=== PATIENT | female | born 1955 | race Caucasian/White ===

== ENCOUNTER 2016-08-11 17:39 | Emergency (ER) | payer MEDICARE ==
[~2016-08-11] VITALS: Ht 162.6 cm; Wt 68.0 kg
[2016-08-11] MEDS ORDERED: FAMOTIDINE 20 MG/2 ML VIAL IVP ONE (18:30)
[2016-08-11] MEDS ORDERED: methylPREDNISolone SOD SUCC PF 125 MG/2 ML VIAL. IV ONE (18:30)
[2016-08-11] MEDS ORDERED: diphenhydrAMINE 50 MG/ML VIAL IVP ONE (18:30)
[2016-08-11] MEDS ORDERED: ONDANSETRON PF 4 MG/2 ML VIAL. IV ONE (18:30)
[2016-08-11 19:17] VITALS: BP 98/55
--- NOTE | 2016-08-11 22:41 | ED.ADGEN ---
Past Medical History Past Medical History: Fibromyalgia Additional Past Medical Histor: NEUROPATHY Past Surgical History: Hysterectomy Additional Past Surgical Histo: TUMOR FROM L SHOULDER, L HAND Alcohol Use: None Drug Use: None Adult General Chief Complaint Chief Complaint: NAUSEA/VOMITING/DIARRHA HPI HPI Patient is a 61 year old female who presents with multiple medical complaints. Patient reports fevers for one week, nausea and urinary and fecal incontinence. Patient was evaluated by her PCP yesterday and prescribed antibiotics for UTI. Blood work was drawn and the patient is to schedule follow-up appointment next week. Patient states she has been unable to take her antibiotics due to persistent nausea. She denies vomiting. She denies fever, chills and sweats today. No flank pain or abdominal pain. Of note, patient also reports developing hives yesterday after receiving a tetanus booster. Patient's accompanied at bedside by her daughter. Review of Systems Review of Systems Review of symptoms as per history of present illness. Current Medications Current Medications Current Medications Medications (Trade) Dose Ordered Sig/Dena Start Time Stop Time Status Last Admin Dose Admin Ceftriaxone Sodium 1 gm/ Sodium Chloride 50 ml @ 100 mls/hr Q24H 08/12/16 19:00 08/12/16 19:00 DC Ceftriaxone Sodium 50 ml @ 100 mls/hr 1X ONCE 08/11/16 19:00 08/11/16 19:29 DC 08/11/16 18:38 100 MLS/HR Diphenhydramine HCl (Benadryl) 25 mg 1X ONCE 08/11/16 18:30 08/11/16 18:32 DC 08/11/16 18:37 25 MG Famotidine (Pepcid) 20 mg 1X ONCE 08/11/16 18:30 08/11/16 18:32 DC 08/11/16 18:37 20 MG Methylprednisolone Sodium Succinate (SOLU-Medrol 125MG VIAL) 125 mg 1X ONCE 08/11/16 18:30 08/11/16 18:32 DC 08/11/16 18:38 125 MG Ondansetron HCl (Zofran) 4 mg 1X ONCE 08/11/16 18:30 08/11/16 18:32 DC 08/11/16 18:37 4 MG Allergies Allergies Allergies Coded Allergies Type Severity Reaction Last Updated Verified iodine Allergy Unknown 08/11/16 Yes meperidine Allergy Unknown 08/11/16 Yes Physical Exam Physical Exam Constitutional: Well developed, well nourished, no acute distress, non-toxic appearance. [] HENT: Normocephalic, atraumatic, bilateral external ears normal, oropharynx moist, no oral exudates, nose normal. [] Eyes: PERRLA, EOMI, conjunctiva normal, no discharge. [] Neck: Normal range of motion, no tenderness, supple, no stridor. [] Cardiovascular:Heart rate regular rhythm, no murmur [] Lungs & Thorax: Bilateral breath sounds clear to auscultation [] Abdomen: Bowel sounds normal, soft, no tenderness, no masses, no pulsatile masses. [] Skin: Sporadic hives on extremities. Back: No tenderness, no CVA tenderness. [] Extremities: No tenderness, no cyanosis, no clubbing, ROM intact, no edema. [] Neurologic: Alert and oriented X 3, normal motor function, normal sensory function, no focal deficits noted. [] Psychologic: Affect normal, judgement normal, mood normal. [] Current Patient Data Vital Signs Vital Signs Date Time Temp Pulse Resp B/P (MAP) Pulse Ox O2 Delivery O2 Flow Rate FiO2 08/11/16 19:17 84 16 98/55 (69) 93 Room Air 08/11/16 17:45 97.7 97.7 EKG EKG [] Radiology/Procedures Radiology/Procedures [] Impressions: Patient afebrile with normal vital signs. She has been prescribed Keflex at home but is been unable to take for nausea. IV Zofran and and Rocephin given. Patient also given Pepcid and Benadryl and Solu-Medrol for treatment of hives with near complete resolution in the emergency department. Discharge home with nausea medication and encouraged to crease fluids and start antibiotics tomorrow. Will continue to treat hives. PCP follow-up as scheduled. Return precautions reviewed. Course & Med Decision Making Course & Med Decision Making Pertinent Labs and Imaging studies reviewed. (See chart for details) [] Dragon Disclaimer Dragon Disclaimer This electronic medical record was generated, in whole or in part, using a voice recognition dictation system. MARQUIS GENTILE DO August 11, 2016 22:41
== END 2016-08-11 19:40 | disposition home or self-care (01) ==
LOC: ER 17:39
DX: L50.9 Urticaria, unspecified (principal); R11.0 Nausea; R15.9 Full incontinence of feces; M79.7 Fibromyalgia; G62.9 Polyneuropathy, unspecified; Z88.8 Allergy status to other drugs, medicaments and biological substances
CPT/HCPCS: 96365; 96375; 99284; J0690; J1200; J2405; J2930; S0028

== ENCOUNTER 2018-12-01 18:43 | Inpatient (IN) | payer MEDICARE ==
[~2018-12-01] VITALS: Ht 165.1 cm; Wt 71.7 kg
[~2018-12-01 18:43] MED LIST: AMIT100T PO; ASPI-630 PO; CIPR500T94 PO; FENT1PAT13 TD; GABA800T5 PO; HYDR-2769 PO; NALO4SPR NS; OXYC5CAP PO; PANT40TA77 PO; POLY17PO28 PO
[2018-12-01] MEDS ORDERED: IPRATRPIUM/ALBUTEROL 0.5/2.5MG 3 ML NEBU. NEB ONE (19:00)
[2018-12-01] MEDS ORDERED: methylPREDNISolone SOD SUCC PF 125 MG/2 ML VIAL. IV ONE (19:00)
[2018-12-01 19:05] LABS: BASO # 0.1 x10^3/uL (0.0-0.2); BASO % 1 % (0-3); EOS # 0.3 x10^3/uL (0.0-0.7); EOS % 3 % (0-3); HEMATOCRIT 34.5 % (36.0-47.0); HEMOGLOBIN 11.6 g/dL (12.0-15.5); LYMPH # 1.2 x10^3/uL (1.0-4.8); LYMPH % 10 % (24-48); MEAN CORPUSCULAR HEMOGLOBIN 32 pg (25-35); MEAN CORPUSCULAR HGB CONC 34 g/dL (31-37); MEAN CORPUSCULAR VOLUME 94 fL (79-100); MONO # 0.9 x10^3/uL (0.0-1.1); MONO % 8 % (0-9); NEUT # 9.2 x10^3/uL (1.8-7.7); NEUT % 79 % (31-73); PLATELET COUNT 262 x10^3/uL (140-400); RED BLOOD COUNT 3.69 x10^6/uL (3.50-5.40); RED CELL DISTRIBUTION WIDTH 13.7 % (11.5-14.5); WHITE BLOOD COUNT 11.7 x10^3/uL (4.0-11.0)
--- NOTE | 2018-12-01 19:11 | PHYS DOC ---
Past Medical History Past Medical History: Fibromyalgia Additional Past Medical Histor: NEUROPATHY, PANC CANCER (JAYLIN ARAIZA MD) Past Surgical History: Hysterectomy Additional Past Surgical Histo: TUMOR FROM L SHOULDER, L HAND (JAYLIN ARAIZA MD) Alcohol Use: None Drug Use: None (JAYLIN ARAIZA MD) Adult General Chief Complaint Chief Complaint: SHORTNESS OF BREATH HPI HPI Patient is a 63 year old female who presents by EMS with feeling of shortness of breath. Patient had recent hospitalization with diagnosis of pancreatic cance r and started on 2 L of oxygen. Patient complaining of increasing shortness of breath for the last few days after discharge from hospital without chest pain and fever and chills and cough. EMS reported that patient had O2 sat of 70s on 2 L of oxygen had increased to lower 90s with 5 L of oxygen. (JAYLIN ARAIZA MD) Review of Systems Review of Systems Constitutional: Denies fever or chills [] Eyes: Denies change in visual acuity, redness, or eye pain [] HENT: Denies nasal congestion or sore throat [] Respiratory: Denies cough, reports shortness of breath [] Cardiovascular: No additional information not addressed in HPI [] GI: Denies abdominal pain, nausea, vomiting, bloody stools or diarrhea [] : Denies dysuria or hematuria [] Musculoskeletal: Denies back pain or joint pain [] Integument: Denies rash or skin lesions [] Neurologic: Denies headache, focal weakness or sensory changes [] Endocrine: Denies polyuria or polydipsia [] All other systems were reviewed and found to be within normal limits, except as documented in this note. (JAYLIN ARAIZA MD) Current Medications Current Medications Current Medications Medications (Trade) Dose Ordered Sig/Dena Start Time Stop Time Status Last Admin Dose Admin Albuterol/ Ipratropium (Duoneb) 3 ml 1X ONCE 12/01/18 19:00 12/01/18 19:01 DC 12/01/18 19:06 3 ML Aspirin (Becca Aspirin) 325 mg 1X ONCE 12/01/18 20:00 12/01/18 20:01 DC 12/01/18 19:58 325 MG Bumetanide (Bumex) 0.5 mg 1X ONCE 12/01/18 20:00 12/01/18 20:01 DC 12/01/18 19:58 0.5 MG Methylprednisolone Sodium Succinate (SOLU-Medrol 125MG VIAL) 125 mg 1X ONCE 12/01/18 19:00 12/01/18 19:01 DC 12/01/18 19:17 125 MG (ABBY HAYNES DO) Allergies Allergies Allergies Coded Allergies Type Severity Reaction Last Updated Verified iodine Allergy Intermediate 11/24/18 Yes meperidine Allergy Intermediate 11/24/18 Yes (ABBY HAYNES DO) Physical Exam Physical Exam Constitutional: Well developed, mild distress, non-toxic appearance. [] HENT: Normocephalic, atraumatic. Eyes: PERRLA, EOMI, conjunctiva normal, no discharge. [] Neck: Normal range of motion, no tenderness, supple, no stridor. [] Cardiovascular:Heart rate regular rhythm, no murmur [] Lungs & Thorax: Bilateral breath sounds clear to auscultation [] Abdomen: Bowel sounds normal, abdomen is moderately distended with fluid, soft, no tenderness, no masses, no pulsatile masses. [] Skin: Warm, dry, no erythema, no rash. [] Back: No tenderness, no CVA tenderness. [] Extremities: No tenderness, no cyanosis, no clubbing, ROM intact, bilateral lower extremity 1+ edema edema without tenderness. [] Neurologic: Alert and oriented X 3, no focal deficits noted. [] Psychologic: Affect normal, judgement normal, mood normal. [] (JAYLIN ARAIZA MD) Physical Exam Constitutional: Well developed, well nourished, non-toxic appearance HENT: Normocephalic, atraumatic, oropharynx moist Eyes: Conjunctiva normal, no discharge Neck: Normal range of motion, no tenderness, supple Cardiovascular: Heart rate tachycardic, regular rhythm Lungs & Thorax: Bilateral breath sounds diminished at bases, no distress Abdomen: Soft, no tenderness Skin: Warm, dry, no erythema, no rash Extremities: No tenderness, ROM intact, 2+ pitting edema to BLE Neurologic: Alert and oriented X 3, no focal deficits noted Psychologic: Affect normal, judgement normal (ABBY HAYNES DO) Current Patient Data Vital Signs Vital Signs Date Time Temp Pulse Resp B/P (MAP) Pulse Ox O2 Delivery O2 Flow Rate FiO2 12/01/18 19:07 95 Nasal Cannula 4.0 12/01/18 18:57 99.7 114 20 101/52 (68) 99.7 (ABBY HAYNES DO) Lab Values Laboratory Tests Test 12/01/18 18:00 12/01/18 18:50 Lactic Acid Level 1.5 mmol/L (0.4-2.0) White Blood Count 11.7 x10^3/uL (4.0-11.0) H Red Blood Count 3.69 x10^6/uL (3.50-5.40) Hemoglobin 11.6 g/dL (12.0-15.5) L Hematocrit 34.5 % (36.0-47.0) L Mean Corpuscular Volume 94 fL (79-100) Mean Corpuscular Hemoglobin 32 pg (25-35) Mean Corpuscular Hemoglobin Concent 34 g/dL (31-37) Red Cell Distribution Width 13.7 % (11.5-14.5) Platelet Count 262 x10^3/uL (140-400) Neutrophils (%) (Auto) 79 % (31-73) H Lymphocytes (%) (Auto) 10 % (24-48) L Monocytes (%) (Auto) 8 % (0-9) Eosinophils (%) (Auto) 3 % (0-3) Basophils (%) (Auto) 1 % (0-3) Neutrophils # (Auto) 9.2 x10^3/uL (1.8-7.7) H Lymphocytes # (Auto) 1.2 x10^3/uL (1.0-4.8) Monocytes # (Auto) 0.9 x10^3/uL (0.0-1.1) Eosinophils # (Auto) 0.3 x10^3/uL (0.0-0.7) Basophils # (Auto) 0.1 x10^3/uL (0.0-0.2) D-Dimer (Merary) > 20.00 ug/mlFEU Sodium Level 138 mmol/L (136-145) Potassium Level 4.1 mmol/L (3.5-5.1) Chloride Level 99 mmol/L (98-107) Carbon Dioxide Level 31 mmol/L (21-32) Anion Gap 8 (6-14) Blood Urea Nitrogen 8 mg/dL (7-20) Creatinine 1.2 mg/dL (0.6-1.0) H Estimated GFR (Cockcroft-Gault) 45.2 BUN/Creatinine Ratio 7 (6-20) Glucose Level 123 mg/dL (70-99) H Calcium Level 9.1 mg/dL (8.5-10.1) Total Bilirubin 0.3 mg/dL (0.2-1.0) Aspartate Amino Transferase (AST) 34 U/L (15-37) Alanine Aminotransferase (ALT) 24 U/L (14-59) Alkaline Phosphatase 443 U/L (46-116) H Creatine Kinase 133 U/L (26-192) Troponin I Quantitative 0.160 ng/mL (0.000-0.055) ZD-Wkr-[id number]-Type Natriuretic Peptide 8081 pg/mL (0-124) H Total Protein 7.4 g/dL (6.4-8.2) Albumin 2.7 g/dL (3.4-5.0) L Albumin/Globulin Ratio 0.6 (1.0-1.7) L Laboratory Tests 12/01/18 18:50 Laboratory Tests 12/01/18 18:50 (ABBY HAYNES DO) EKG EKG [] (JAYLIN ARAIZA MD) Radiology/Procedures Radiology/Procedures [] (JAYLIN ARAIZA MD) Radiology/Procedures CXR AP (preliminary interpretation by ED physician): No acute infiltration, some atelectasis in left lung base, mild vascular congestion (ABBY HAYNES DO) Course & Med Decision Making Course & Med Decision Making Pertinent Labs and Imaging studies are pending. Sign out given to at 1900 for further evaluation and final dispos ition. Discussed current findings and plan with patient and family, who acknowledge understanding and agreement. (JAYLIN ARAIZA MD) Course & Med Decision Making 1899- Signout out received from Dr. Araiza for patient with hypoxia, tachycardia and dyspnea. BLE edema noted. Hx of recently diagnosed metastatic pancreatitis cancer. Patient seen and evaluated by myself. Labs reviewed. Troponin elevated. EKG stable. BNP >8000. Bumex provided. D-dimer elevated. Unable to perform CTA chest due to iodine allergy. Lung scan pending for AM. Venous dopplers to BLE ordered. Lovenox also ordered. Patient requiring admission for further evaluation and treatment. Discussed with Dr. Jarquin (hospitalist) who is in agreement with admission. Discussed findings and plan with patient and family, who acknowledge understanding and agreement. (ABBY HAYNES DO) Dragon Disclaimer Dragon Disclaimer This electronic medical record was generated, in whole or in part, using a voice recognition dictation system. (JAYLIN ARAIZA MD) Departure Departure Impression: Primary Impression: Shortness of breath Additional Impressions: Pancreatic cancer Hypoxia CHF (congestive heart failure) Elevated troponin Elevated d-dimer Disposition: ADMITTED INPATIENT Admitting Physician: SATURNINO (Milka) (ABBY HAYNES DO) Condition: GUARDED Referrals: ANGELA CUEVA (PCP) The HEART Score for CP Pts HEART Score for Chest Pain: HEART Score for Chest Pain Response (Comments) Value History Moderately Suspicious 1 ECG Normal 0 Age >45 - < 65 1 Risk Factors 1 or 2 Risk Factors 1 Troponin >1-<3x Normal Limit 1 Total 4 Risk Factors: Risk Factors: DM, Current or recent (<one month) smoker, HTN, HLP, family hist ory of CAD, obesity. Risk Scores: Score 0 - 3: 2.5% MACE over next 6 weeks - Discharge Home Score 4 - 6: 20.3% MACE over next 6 weeks - Admit for Clinical Observation Score 7 - 10: 72.7% MACE over next 6 weeks - Early Invasive Strategies (ABBY HAYNES DO) Critical Care Time Critical care time was 30 minutes which includes time at bedside, spent in discussion of patient's care with specialists and/or family members, with interpretation of laboratory and/or radiological studies and is exclusive of procedures. (ABBY HAYNES DO) Problem Qualifiers Additional Impressions: Pancreatic cancer Pancreatic malignancy location: unspecified Qualified Codes: C25.9 - Malignant neoplasm of pancreas, unspecified CHF (congestive heart failure) Heart failure type: unspecified Heart failure chronicity: unspecified Qualified Codes: I50.9 - Heart failure, unspecified JAYLIN ARAIZA MD Dec 01, 2018 19:11 ABBY HAYNES DO Dec 01, 2018 20:16
[2018-12-01 19:17] LABS: CALCIUM 9.1 mg/dL (8.5-10.1); CREATININE 1.2 mg/dL (0.6-1.0); GFR 45.2; POTASSIUM 4.1 mmol/L (3.5-5.1)
[2018-12-01 19:23] LABS: ALBUMIN 2.7 g/dL (3.4-5.0); ALBUMIN/GLOBULIN RATIO 0.6 (1.0-1.7); TOTAL BILIRUBIN 0.3 mg/dL (0.2-1.0); TOTAL PROTEIN 7.4 g/dL (6.4-8.2)
[2018-12-01] MEDS ORDERED: BUMETANIDE 1 MG/4 ML VIAL. IV ONE (20:00)
[2018-12-01] MEDS ORDERED: ASPIRIN 325 MG TABLET PO ONE (20:00)
[2018-12-01] MEDS ORDERED: ACETAMINOPHEN 325 MG TABLET. PO PRN (20:30)
[2018-12-01] MEDS ORDERED: ONDANSETRON PF 4 MG/2 ML VIAL. IV PRN (20:30)
[2018-12-01 20:50] VITALS: BP 157/77
--- NOTE | 2018-12-01 21:00 | NUR ---
Admit from ED via gurney. A/O x 4 on arrival to floor. Family at bedside. SOA. O2 5L NC in place. VSS. Ambulates from gurney to bathroom to bed with 1 person assist. Unsteady and shaky. Orientated to room and POC. Verbalized understanding. Resting in bed watching TV with call light at hand. Son, Star, remains at bedside.
[2018-12-01] MEDS ORDERED: NON FORMULARY ITEM (Naloxone HCl (Narcan) 4 MG) NS PRN (21:30)
[2018-12-01] MEDS ORDERED: NALOXONE 0.4 MG/ML VIAL. IV PRN (21:45)
[2018-12-01] MEDS: AMITRIPTYLINE HCL 25 MG TABLET. PO SCH (22:08)
[2018-12-01] MEDS: GABAPENTIN 400 MG CAPSULE. PO SCH (22:08)
--- NOTE | 2018-12-01 22:34 | RAD ---
Study: NUCLEAR MEDICINE VENTILATION PERFUSION SCAN History: Dyspnea, hypoxia and elevated d-dimer. Recently diagnosed pancreatic malignancy. Comparison: Correlation is made to the same day single view chest radiograph performed at 1829 hours. Technique: Ventilation portion performed after inhalation of 15 mCi Xe-133 gas. Perfusion portion performed after intravenous administration of 5.5 mCi Technetium 99m MAA. Multiple projection planar images of the lungs were obtained. Findings: Ventilation images reveal confluent radiotracer uptake within the right and left lungs during inspiration without retained radiotracer on the washout images. Perfusion images demonstrate multiple mismatched defects that are segmental to subsegmental in size. IMPRESSION: Multiple bilateral segmental/subsegmental mismatched defects collectively compatible with high probability for pulmonary embolism. FOR INTERNAL CODING PURPOSES RESULT CODE: (C) The critical results were discussed with Dr. Quesada on 12/01/2017 at 2225 hours. Electronically signed by: GIULIANA LEE MD (12/01/2018 10:31 PM) [facility]
--- NOTE | 2018-12-01 22:51 | RAD ---
STUDY: VENOUS LOWER EXT BILATERAL INDICATION: Bilateral lower extremity swelling. TECHNIQUE: Color-flow and pulsed wave duplex ultrasound with compression of venous structures of the bilateral lower extremities. COMPARISON: None. FINDINGS: Duplex ultrasound with compression of the deep venous structures of the bilateral lower extremities from the common femoral vein through the calf veins reveals extensive deep venous thrombosis with complete occlusion of the bilateral superficial femoral veins and popliteal veins. The bilateral common femoral veins remain patent. Partially occlusive thrombus within both posterior tibial veins IMPRESSION: Extensive deep venous thrombosis burden involving both lower extremities with complete occlusion of the bilateral superficial femoral veins and popliteal veins. Partially occlusive thrombus within the bilateral posterior tibial veins. The common femoral veins are patent. The findings correspond with the VQ scan performed on the same day revealing high probability for pulmonary embolism, the results of which were discussed with the ordering physician. Electronically signed by: GIULIANA LEE MD (12/01/2018 10:48 PM) [facility]
[2018-12-01 22:54] VITALS: BP 128/61
--- NOTE | 2018-12-02 00:02 | RAD ---
Exam: Chest one view INDICATION: Elevated lactate TECHNIQUE: Frontal view of the chest Comparisons: 05/10/2018 FINDINGS: The cardiomediastinal silhouette and pulmonary vessels are within normal limits. Patchy bibasilar airspace disease is noted. No pleural effusion. IMPRESSION: Subtle patchy bibasilar airspace disease may represent atelectasis or developing infection. Electronically signed by: Wai Thurston MD (12/01/2018 11:59 PM) [facility]
[2018-12-02 03:37] VITALS: BP 118/56
--- NOTE | 2018-12-02 06:04 | EKG ---
[facility] [address] [place] [address] Test Date: 2018-12-01 Test Time: 19:09:57 Pat Name: NEAL TUBBS Department: Room: Gender: F Gsa Coordinator: : 1955 Requested By: JAYLIN ARAIZA Order Number: [id number] Reading MD: Measurements Intervals [place] Rate: 108 P: 77 ID: [id number] QRS: -18 QRSD: 76 T: 18 QT: 362 QTc: 489 Interpretive Statements SINUS TACHYCARDIA LEFTWARD AXIS QRS(T) CONTOUR ABNORMALITY CONSIDER ANTEROSEPTAL MYOCARDIAL DAMAGE T ABNORMALITY IN ANTERIOR LEADS ABNORMAL ECG RI6.01 Unconfirmed report No previous ECG available for comparison
[2018-12-02 07:00] VITALS: BP 121/57
[2018-12-02] MEDS: IPRATRPIUM/ALBUTEROL 0.5/2.5MG 3 ML NEBU. NEB SCH ×4 (07:00→20:13)
--- NOTE | 2018-12-02 08:22 | PDOC1 ---
History and Physical Date of Admission Date of Admission DATE: 12/02/18 TIME: 08:20 Identification/Chief Complaint Chief Complaint seen in er , presented by EMS with feeling of shortness of breath. Patient had recent hospitalization with diagnosis of pancreatic cancer and started on 2 L of oxygen. Patient complaining of increasing shortness of breath for the last few days after discharge from hospital without chest pain and fever and chills and cough. EMS reported that patient had O2 sat of 70s on 2 L of oxygen had increased to lower 90s with 5 L of oxygen /// V/Q POS PE. Past Medical History Past Medical History Past Medical History Past Medical History: Fibromyalgia Additional Past Medical Histor: NEUROPATHY, PANC CANCER Past Surgical History: Hysterectomy Additional Past Surgical Histo: TUMOR FROM L SHOULDER, L HAND Alcohol Use: None Drug Use: None Cardiovascular: No pertinent hx CENTRAL NERVOUS SYSTEM: Periperal neuropathy GI: No pertinent hx Heme/Onc: No pertinent hx Hepatobiliary: No pertinent hx Psych: No pertinent hx Musculoskeletal: low back pain, Osteoarthritis Rheumatologic: Vasculitis Infectious disease: No pertinent hx Renal/: No pertinent hx Endocrine: No pertinent hx Past Surgical History Past Surgical History: Other Family History Family History: Hypertension Social History Smoke: No ALCOHOL: none Drugs: None Current Problem List Problem List Problems Medical Problems: (1) Elevated d-dimer Status: Acute (2) Elevated troponin Status: Acute (3) Hypoxia Status: Acute (4) Pancreatic cancer Status: Acute (5) Shortness of breath Status: Acute Current Medications Current Medications Current Medications Albuterol/ Ipratropium (Duoneb) 3 ml 1X ONCE NEB Last administered on 12/01/18at 19:06; Start 12/01/18 at 19:00; Stop 12/01/18 at 19:01; Status DC Methylprednisolone Sodium Succinate (SOLU-Medrol 125MG VIAL) 125 mg 1X ONCE IV Last administered on 12/01/18at 19:17; Start 12/01/18 at 19:00; Stop 12/01/18 at 19:01; Status DC Aspirin (Becca Aspirin) 325 mg 1X ONCE PO Last administered on 12/01/18at 19:58; Start 12/01/18 at 20:00; Stop 12/01/18 at 20:01; Status DC Bumetanide (Bumex) 0.5 mg 1X ONCE IV Last administered on 12/01/18at 19:58; Start 12/01/18 at 20:00; Stop 12/01/18 at 20:01; Status DC Enoxaparin Sodium (Lovenox 80mg Syringe) 70 mg 1X ONCE SQ Last administered on 12/01/18at 20:18; Start 12/01/18 at 20:45; Stop 12/01/18 at 20:46; Status DC Ondansetron HCl (Zofran) 4 mg PRN Q8HRS PRN IV NAUSEA/VOMITING; Start 12/01/18 at 20:30; Stop 12/02/18 at 20:29 Fentanyl Citrate (Fentanyl 2ml Vial) 50 mcg PRN Q4HRS PRN IV PAIN; Start 12/01/18 at 20:30 Acetaminophen (Tylenol) 650 mg PRN Q4HRS PRN PO FEVER; Start 12/01/18 at 20:30; Stop 12/02/18 at 20:29 Albuterol/ Ipratropium (Duoneb) 3 ml RTQID NEB Last administered on 12/02/18at 07:00; Start 12/02/18 at 08:00; Stop 12/03/18 at 07:59 Enoxaparin Sodium (Lovenox 80mg Syringe) 70 mg Q12HR SQ ; Start 12/02/18 at 09:00 Aspirin (Children'S Aspirin) 81 mg DAILYWBKFT PO ; Start 12/02/18 at 08:00 Fentanyl (Duragesic 12mcg/ Hr Patch) 1 patch Q3DAYS TD ; Start 12/02/18 at 09:00 Acetaminophen/ Hydrocodone Bitart (Lortab 10/325) 1 tab PRN Q4HRS PRN PO PAIN; Start 12/01/18 at 21:30 Pantoprazole Sodium (Protonix) 40 mg DAILYAC PO ; Start 12/02/18 at 07:30 Polyethylene Glycol (miraLAX PACKET) 17 gm DAILY PO ; Start 12/02/18 at 09:00 Amitriptyline HCl (Elavil) 250 mg QHS PO Last administered on 12/01/18at 22:08; Start 12/01/18 at 22:00 Gabapentin (Neurontin) 800 mg QID PO Last administered on 12/01/18at 22:08; S tart 12/01/18 at 22:00 Non-Formulary Medication (Naloxone HCl (Narcan)) 4 mg PRN DAILY PRN NS overdose; Start 12/01/18 at 21:30; Stop 12/01/18 at 21:41; Status DC Naloxone HCl (Narcan) 0.4 mg PRN Q2MIN PRN IV SEE COMMENTS; Start 12/01/18 at 21:45 Active Scripts Active Narcan (Naloxone HCl) 4 Mg Randolph 4 Mg NS PRN DAILY PRN 30 Days Polyethylene Glycol 3350 17 Gm Powd.pack 17 Gm PO DAILY 30 Days FENTANYL 12mcg/hr (Fentanyl) 1 Each Patch.td72 1 Patch TD Q3DAYS 30 Days Pantoprazole Sodium (Pantoprazole Sodium) 40 Mg Tablet.dr 40 Mg PO DAILYAC 30 Days Reported Aspirin 81 Mg Tab.chew 1 Tab PO DAILYWBKFT Amitriptyline Hcl 100 Mg Tablet 2.5 Tab PO QHS Hydrocodone-Apap 10-325 (Hydrocodone Bit/Acetaminophen) 1 Tab Tablet 1 Tab PO PRN Q4HRS PRN Gabapentin 800 Mg Tablet 800 Mg PO QID Allergies Allergies: Coded Allergies: iodine (Verified Allergy, Intermediate, 11/24/18) meperidine (Verified Allergy, Intermediate, 11/24/18) ROS Review of System Review of Systems Review of Systems Constitutional: Denies fever or chills [] Eyes: Denies change in visual acuity, redness, or eye pain [] HENT: Denies nasal congestion or sore throat [] Respiratory: Denies cough, reports shortness of breath [] Cardiovascular: No additional information not addressed in HPI [] GI: Denies abdominal pain, nausea, vomiting, bloody stools or diarrhea [] : Denies dysuria or hematuria [] Musculoskeletal: Denies back pain or joint pain [] Integument: Denies rash or skin lesions [] Neurologic: Denies headache, focal weakness or sensory changes [] Endocrine: Denies polyuria or polydipsia [] 14 PT systems were reviewed and found to be within normal limits, except as documented Gastrointestinal: Yes Abdominal Pain Physical Exam Physical Exam Physical Exam Constitutional: Well developed, well nourished, non-toxic appearance HENT: Normocephalic, atraumatic, oropharynx moist Eyes: Conjunctiva normal, no discharge Neck: Normal range of motion, no tenderness, supple Cardiovascular: Heart rate tachycardic, regular rhythm Lungs & Thorax: Bilateral breath sounds diminished at bases, no distress Abdomen: Soft, no tenderness Skin: Warm, dry, no erythema, no rash Extremities: No tenderness, ROM intact, 2+ pitting edema to BLE Neurologic: Alert and oriented X 3, no focal deficits noted Psychologic: Affect normal, judgement normal General: Alert, Oriented X3, Cooperative HEENT: Atraumatic Breasts: Not examined Rectal Exam: not examined PELVIC: Examination not indicated Extremities: No cyanosis Skin: No significant lesion Neuro: Normal speech, Cranial nerves 3-12 NL Psych/Mental Status: Mental status NL, Mood NL Vitals Vitals Vital Signs Date Time Temp Pulse Resp B/P (MAP) Pulse Ox O2 Delivery O2 Flow Rate FiO2 12/02/18 07:02 94 Nasal Cannula 5.0 12/02/18 03:37 100 18 118/56 (76) 12/01/18 22:54 98.0 98.0 Labs Labs Laboratory Tests Test 12/01/18 18:00 12/01/18 18:50 12/02/18 00:05 12/02/18 03:50 Lactic Acid Level 1.5 mmol/L (0.4-2.0) White Blood Count 11.7 x10^3/uL (4.0-11.0) Red Blood Count 3.69 x10^6/uL (3.50-5.40) Hemoglobin 11.6 g/dL (12.0-15.5) Hematocrit 34.5 % (36.0-47.0) Mean Corpuscular Volume 94 fL (79-100) Mean Corpuscular Hemoglobin 32 pg (25-35) Mean Corpuscular Hemoglobin Concent 34 g/dL (31-37) Red Cell Distribution Width 13.7 % (11.5-14.5) Platelet Count 262 x10^3/uL (140-400) Neutrophils (%) (Auto) 79 % (31-73) Lymphocytes (%) (Auto) 10 % (24-48) Monocytes (%) (Auto) 8 % (0-9) Eosinophils (%) (Auto) 3 % (0-3) Basophils (%) (Auto) 1 % (0-3) Neutrophils # (Auto) 9.2 x10^3/uL (1.8-7.7) Lymphocytes # (Auto) 1.2 x10^3/uL (1.0-4.8) Monocytes # (Auto) 0.9 x10^3/uL (0.0-1.1) Eosinophils # (Auto) 0.3 x10^3/uL (0.0-0.7) Basophils # (Auto) 0.1 x10^3/uL (0.0-0.2) D-Dimer (Merary) > 20.00 ug/mlFEU Sodium Level 138 mmol/L (136-145) Potassium Level 4.1 mmol/L (3.5-5.1) Chloride Level 99 mmol/L (98-107) Carbon Dioxide Level 31 mmol/L (21-32) Anion Gap 8 (6-14) Blood Urea Nitrogen 8 mg/dL (7-20) Creatinine 1.2 mg/dL (0.6-1.0) Estimated GFR (Cockcroft-Gault) 45.2 BUN/Creatinine Ratio 7 (6-20) Glucose Level 123 mg/dL (70-99) Calcium Level 9.1 mg/dL (8.5-10.1) Total Bilirubin 0.3 mg/dL (0.2-1.0) Aspartate Amino Transf (AST/SGOT) 34 U/L (15-37) Alanine Aminotransferase (ALT/SGPT) 24 U/L (14-59) Alkaline Phosphatase 443 U/L (46-116) Creatine Kinase 133 U/L (26-192) Troponin I Quantitative 0.160 ng/mL (0.000-0.055) 0.188 ng/mL (0.000-0.055) 0.201 ng/mL (0.000-0.055) DS-Dxj-R-Type Natriuretic Peptide 8081 pg/mL (0-124) Total Protein 7.4 g/dL (6.4-8.2) Albumin 2.7 g/dL (3.4-5.0) Albumin/Globulin Ratio 0.6 (1.0-1.7) Triglycerides Level 69 mg/dL (0-150) Cholesterol Level 207 mg/dL (0-200) LDL Cholesterol, Calculated 141 mg/dL (0-100) VLDL Cholesterol, Calculated 14 mg/dL (0-40) Non-HDL Cholesterol Calculated 155 mg/dL (0-129) HDL Cholesterol 52 mg/dL (40-60) Cholesterol/HDL Ratio 4.0 Laboratory Tests Test 12/01/18 18:00 12/01/18 18:50 12/02/18 00:05 12/02/18 03:50 Lactic Acid Level 1.5 mmol/L (0.4-2.0) White Blood Count 11.7 x10^3/uL (4.0-11.0) Red Blood Count 3.69 x10^6/uL (3.50-5.40) Hemoglobin 11.6 g/dL (12.0-15.5) Hematocrit 34.5 % (36.0-47.0) Mean Corpuscular Volume 94 fL (79-100) Mean Corpuscular Hemoglobin 32 pg (25-35) Mean Corpuscular Hemoglobin Concent 34 g/dL (31-37) Red Cell Distribution Width 13.7 % (11.5-14.5) Platelet Count 262 x10^3/uL (140-400) Neutrophils (%) (Auto) 79 % (31-73) Lymphocytes (%) (Auto) 10 % (24-48) Monocytes (%) (Auto) 8 % (0-9) Eosinophils (%) (Auto) 3 % (0-3) Basophils (%) (Auto) 1 % (0-3) Neutrophils # (Auto) 9.2 x10^3/uL (1.8-7.7) Lymphocytes # (Auto) 1.2 x10^3/uL (1.0-4.8) Monocytes # (Auto) 0.9 x10^3/uL (0.0-1.1) Eosinophils # (Auto) 0.3 x10^3/uL (0.0-0.7) Basophils # (Auto) 0.1 x10^3/uL (0.0-0.2) D-Dimer (Merary) > 20.00 ug/mlFEU Sodium Level 138 mmol/L (136-145) Potassium Level 4.1 mmol/L (3.5-5.1) Chloride Level 99 mmol/L (98-107) Carbon Dioxide Level 31 mmol/L (21-32) Anion Gap 8 (6-14) Blood Urea Nitrogen 8 mg/dL (7-20) Creatinine 1.2 mg/dL (0.6-1.0) Estimated GFR (Cockcroft-Gault) 45.2 BUN/Creatinine Ratio 7 (6-20) Glucose Level 123 mg/dL (70-99) Calcium Level 9.1 mg/dL (8.5-10.1) Total Bilirubin 0.3 mg/dL (0.2-1.0) Aspartate Amino Transf (AST/SGOT) 34 U/L (15-37) Alanine Aminotransferase (ALT/SGPT) 24 U/L (14-59) Alkaline Phosphatase 443 U/L (46-116) Creatine Kinase 133 U/L (26-192) Troponin I Quantitative 0.160 ng/mL (0.000-0.055) 0.188 ng/mL (0.000-0.055) 0.201 ng/mL (0.000-0.055) GA-Pme-K-Type Natriuretic Peptide 8081 pg/mL (0-124) Total Protein 7.4 g/dL (6.4-8.2) Albumin 2.7 g/dL (3.4-5.0) Albumin/Globulin Ratio 0.6 (1.0-1.7) Triglycerides Level 69 mg/dL (0-150) Cholesterol Level 207 mg/dL (0-200) LDL Cholesterol, Calculated 141 mg/dL (0-100) VLDL Cholesterol, Calculated 14 mg/dL (0-40) Non-HDL Cholesterol Calculated 155 mg/dL (0-129) HDL Cholesterol 52 mg/dL (40-60) Cholesterol/HDL Ratio 4.0 Images Images [facility] Accession Number: [id number] . 01 Material submitted: . liver - LIVER MASS CORE BX . 01 Clinical history: . Liver mets . 02 Diagnosis: Liver tissue, liver mass needle biopsies: - METASTATIC ADENOCARCINOMA, MODERATELY DIFFERENTIATED. SEE COMMENT. . (JPM:eun; 11/24/2018) QMS/11/24/2018 . 02 Comment: Sections of the liver mass CT guided needle biopsy show extensive replacement of liver parenchyma by a malignant epithelial neoplasm. The neoplasm is composed of crowded small irregular glands with an associated edematous and fibrous stroma. The glands are lined by atypical cells having eosinophilic and vacuolated cytoplasm and showing pale staining intraluminal mucin. The malignant cells possess enlarged, rounded to irregular hyperchromatic nuclei. A panel of immunoperoxidase stains is obtained on block A1 and yields the following results: . Cytokeratin 7: Tumor cells positive Cytokeratin 20: Tumor cells negative CDX2: Tumor cells negative TTF-1: Tumor cells negative Mitral Valve MV E Velocity 76.6cm/s MV DECEL TIME 141ms MV A Velocity 95.0cm/s E/A Ratio 0.8 Pulmonary Valve PV Peak Velocity 183.4cm/s Tricuspid Valve TR P. Velocity 337cm/s RAP ESTIMATE 8mmHg TR Peak Gr. 45mmHg RVSP 53mmHg LEFT VENTRICLE The left ventricle is normal size. Proximal septal thickening is noted. The left ventricular systolic function is normal and the ejection fraction is within normal range. The Ejection Fraction is 60-65%. There is normal LV segmental wall motion. Transmitral Doppler flow pattern is Grade I-abnormal relaxation pattern. RIGHT VENTRICLE The right ventricle is mildly to moderately dilated. There is normal right ventricular wall thickness. The right ventricular systolic function is normal. ATRIA The left atrium size is normal. The right atrium is mildly dilated. The inter atrial septum is intact with no evidence for an atrial septal defect or patent foramen ovale as noted on 2-D or Doppler imaging. AORTIC VALVE The aortic valve is trileaflet. The aortic valve is mildly calcified. Doppler and Color Flow revealed moderate aortic regurgitation. There is no significant aortic valvular stenosis. There is no aortic valvular vegetation. MITRAL VALVE The mitral valve is normal in structure and function. There is no evidence of mitral valve prolapse. There is no mitral valve stenosis. Doppler and Color-flow revealed trace mitral regurgitation. TRICUSPID VALVE The tricuspid valve is normal in structure and function. Doppler and Color Flow revealed mild to moderate tricuspid regurgitation. There is moderate pulmonary hypertension. The PA pressure was estimated at 53 mmHg. There is no tricuspid valve prolapse or vegetation. There is no tricuspid valve stenosis. PULMONIC VALVE Doppler and Color Flow revealed mild pulmonic valvular regurgitation. There is no pulmonic valvular stenosis. GREAT VESSELS The aortic root is normal in size. The ascending aorta is normal in size. The IVC is dilated and collapses <50% with inspiration. PERICARDIAL EFFUSION There is no evidence of significant pericardial effusion. Critical Notification Critical Value: No <Conclusion> The left ventricular systolic function is normal and the ejection fraction is within normal range. The Ejection Fraction is 60-65%. There is normal LV segmental wall motion. The right ventricle is mildly to moderately dilated. Doppler and Color Flow revealed moderate aortic regurgitation. (Cannot rule out severe AI based on PHT, consider BRIA) Signed by : Rebecca Scruggs, Electronically Approved : 12/02/2018 11:14:23 DICTATED and SIGNED BY: REBECCA SCRUGGS MD DATE: 12/02/18 1052 STATUS: ADM IN ORD. PHYSICIAN: ABBY HAYNES DO REASON: BLE swelling, eval for DVT PROCEDURE: VENOUS LOWER EXT BILATERAL STUDY: VENOUS LOWER EXT BILATERAL INDICATION: Bilateral lower extremity swelling. TECHNIQUE: Color-flow and pulsed wave duplex ultrasound with compression of venous structures of the bilateral lower extremities. COMPARISON: None. FINDINGS: Duplex ultrasound with compression of the deep venous structures of the bilateral lower extremities from the common femoral vein through the calf veins reveals extensive deep venous thrombosis with complete occlusion of the bilateral superficial femoral veins and popliteal veins. The bilateral common femoral veins remain patent. Partially occlusive thrombus within both posterior tibial veins IMPRESSION: Extensive deep venous thrombosis burden involving both lower extremities with complete occlusion of the bilateral superficial femoral veins and popliteal veins. Partially occlusive thrombus within the bilateral posterior tibial veins. The common femoral veins are patent. The findings correspond with the VQ scan performed on the same day revealing high probability for pulmonary embolism, the results of which were discussed with the ordering physician. Electronically signed by: GIULIANA LEE MD (12/01/2018 10:48 PM) [facility] PATIENT: NEAL TUBBSUNT: [id number] : 1955 LOCATION: [address] [place] [address] AGE: 63 SEX: F EXAM STATUS: ADM IN ORD. PHYSICIAN: ABBY HAYNES DO REASON: dyspnea, hypoxia, elevated d-dimer, KIKO KNOWS PROCEDURE: LUNG VENT/PERFUSION SCAN(VQ) Study: NUCLEAR MEDICINE VENTILATION PERFUSION SCAN History: Dyspnea, hypoxia and elevated d-dimer. Recently diagnosed pancreatic malignancy. Comparison: Correlation is made to the same day single view chest radiograph performed at 1829 hours. Technique: Ventilation portion performed after inhalation of 15 mCi Xe-133 gas. Perfusion portion performed after intravenous administration of 5.5 mCi Technetium 99m MAA. Multiple projection planar images of the lungs were obtained. Findings: Ventilation images reveal confluent radiotracer uptake within the right and left lungs during inspiration without retained radiotracer on the washout images. Perfusion images demonstrate multiple mismatched defects that are segmental to subsegmental in size. IMPRESSION: Multiple bilateral segmental/subsegmental mismatched defects collectively compatible with high probability for pulmonary embolism. VTE Prophylaxis Ordered VTE Prophylaxis Devices: Contraindicated VTE Pharmacological Prophylaxi: Yes Assessment/Plan Assessment/Plan IMPRESSION: Multiple bilateral segmental/subsegmental mismatched defects collectively compatible with high probability for pulmonary embolism. Acute on chronic hypoxic respiratory failure secondary to acute pulmonary embolism and underlying chronic obstructive pulmonary disease. Recently diagnosed pancreatic cancer, . increased troponin level, suspect secondary to RV ischemia. Hemodynamically stable, does not require TPA. chronic obstructive pulmonary disease, could be severe Metastatic pancreatic cancer BX POS METASTATIC ADENOCARCINOMA, MODERATELY DIFFERENTIATED. Abdominal Pain Anemia HTN Peripheral neuropathy DM2, bladder prolapse GERD Fibromyalgia Extensive deep venous thrombosis burden involving both lower extremities with complete occlusion of the bilateral superficial femoral veins and popliteal veins. Partially occlusive thrombus within the bilateral posterior tibial veins. The common femoral veins are patent ECHO 12/02 Doppler and Color Flow revealed moderate aortic regurgitation. (Cannot rule out severe AI based on PHT, consider BRIA) plan admit cvc consult pulmonary sq lovenox protocol for PE. ONCOLOGY CONSULT CONSULT CARDIOLOGY HOME MEDS PAIN CONTROL /// ADMIT 78 MIN PT EXAM, CHART REVIEW, > 50% OF TIME SPENT WITH EXAM, CHART REVIEW, PT CARE COORDINATION FAROOQ SUÁREZ MD Dec 02, 2018 08:22
[2018-12-02] MEDS: PANTOPRAZOLE 40 MG TABLET.DR. PO SCH (08:44)
[2018-12-02] MEDS: GABAPENTIN 400 MG CAPSULE. PO SCH ×4 (08:45→21:23)
[2018-12-02] MEDS: POLYETHYLENE GLYCOL 3350 17 GM PACKET. PO SCH (08:45)
[2018-12-02] MEDS: ASPIRIN CHEWABLE 81 MG TABLET. PO SCH (08:45)
--- NOTE | 2018-12-02 09:39 | CONS ---
DATE OF CONSULTATION: PULMONARY CONSULTATION ATTENDING PHYSICIAN: Jordy Jarquin MD REASON FOR CONSULTATION: DVT and pulmonary embolism and respiratory failure. HISTORY OF PRESENT ILLNESS: The patient is a 63-year-old who smoked for about 40 years before quitting. She was recently hospitalized and was diagnosed with pancreatic cancer. She was discharged home on 2 liters of oxygen. She was brought into the hospital with increasing shortness of breath. She had almost had a syncopal episode. She denies any chest pain, no cough, no fever, no chills. No headaches. No nausea, vomiting, diarrhea. Her saturations were in the 70s on 2 liters of oxygen. As a result, she was placed on 5 liters of oxygen. Imaging workup was performed and she had extensive DVT involving both lower extremities. The patient also had a V/Q scan, which was high probability for pulmonary embolism with multiple bilateral segmental and subsegmental mismatch defects. She was started on Lovenox. I have been asked to see her for further evaluation. PAST MEDICAL HISTORY: Significant for history of pancreatic cancer, recently diagnosed a week ago. No treatment yet. History of suspected COPD, history of neuropathy. PAST SURGICAL HISTORY: Hysterectomy and tumor from the left shoulder and left hand removed. ALLERGIES: IODINE AND MEPERIDINE. SOCIAL HISTORY: Smoked for 40 years and quit recently. MEDICATIONS: Reviewed as listed in the [facility]AD. REVIEW OF SYSTEMS: Twelve-point system obtained. Pertinent positives discussed in my history of present illness, otherwise noncontributory. All systems that were negative were reviewed as well. FAMILY HISTORY: Noncontributory to lungs. PHYSICAL EXAMINATION: VITAL SIGNS: On examination, vital signs were reviewed. Afebrile, pulse ox 93% on 5 liters. NECK: Supple. LUNGS: With diminished breath sounds. CARDIOVASCULAR: Regular rate and rhythm. ABDOMEN: Soft, slightly distended. EXTREMITIES: With bilateral pitting edema. LABORATORY DATA: Labs were reviewed. White cell count 11.7, hemoglobin 11.6, platelets 262. D-dimer was more than 20. Troponin 0.16. IMPRESSION: 1. Acute pulmonary embolism with multiple bilateral segmental and subsegmental mismatch defects along with acute extensive deep vein thrombosis. The risk factor is underlying pancreatic cancer, presenting as hypercoagulable state. 2. Acute on chronic hypoxic respiratory failure secondary to acute pulmonary embolism and underlying chronic obstructive pulmonary disease. 3. Recently diagnosed pancreatic cancer, not been on treatment yet. 4. Mildly increased troponin level, suspect secondary to RV ischemia. 5. Hemodynamically stable, does not require TPA. 6. Suspected underlying chronic obstructive pulmonary disease, could be severe. RECOMMENDATIONS: 1. Continue with present oxygen. 2. I will obtain an echo to assess for RV dysfunction. 3. Continue full-dose Lovenox. 4. We will initiate oral anticoagulation in the next 24-48 hours. 5. Hematology/Oncology consultation and also regarding the choice of oral anticoagulant in the setting of underlying malignancy. 6. Initiate pancreatic cancer treatment. 7. The patient will require lifelong anticoagulation due to underlying malignancy. 8. Continue bronchodilators. 9. Discussed with the patient and her son and RN and we will follow along with you. RICCI NESS MD DR: DEN/singh JOB#: [id number] / [id number]
[2018-12-02 11:00] VITALS: BP 132/60
--- NOTE | 2018-12-02 11:14 | CARD ---
MR#: [id number] Date of Study: 12/02/2018 Ordering Physician: DEBRA WILLIAM, Referring Physician: DEBRA WILLIAM, Tech: Nickie Ken [facility] [place] APPROVED REPORT EXAM: Two-dimensional and M-mode echocardiogram with Doppler and color Doppler. Other Information Quality : AverageHR: 100bpm Rhythm : Tachycardia INDICATION Elevated troponin 2D DIMENSIONS RVDd3.5 (2.9-3.5cm)Left Atrium(2D)2.9 (1.6-4.0cm) IVSd1.2 (0.7-1.1cm)Aortic Root(2D)2.8 (2.0-3.7cm) LVDd4.5 (3.9-5.9cm)LVOT Diameter1.8 (1.8-2.4cm) PWd1.0 (0.7-1.1cm)LVDs2.9 (2.5-4.0cm) FS (%) 35.6 %SV60.5 ml LVEF(%)65.2 (>50%) M-Mode DIMENSIONS Left Atrium(MM)3.33 (2.5-4.0cm)Aortic Root3.16 (2.2-3.7cm) Aortic Valve AoV Peak Salomon.166.7cm/sAoV VTI29.2cm AO Peak GR.11.1mmHgLVOT Peak Salomon.126.4cm/s AO Mean GR.6mmHgAVA (VMAX)1.85cm2 DERICK (VTI)1.46bv4WA P 1/2 Keva103cu Mitral Valve MV E Lcczzure09.6cm/sMV DECEL UBKY393vz MV A Rjqqnvbl34.0cm/sE/A Ratio0.8 Pulmonary Valve PV Peak Aibcljhp820.4cm/s Tricuspid Valve TR P. Afedrwwq434ol/sRAP XWUAXYWN2vaKm TR Peak Gr.36ltBfFTCO72suEj LEFT VENTRICLE The left ventricle is normal size. Proximal septal thickening is noted. The left ventricular systolic function is normal and the ejection fraction is within normal range. The Ejection Fraction is 60-65% . There is normal LV segmental wall motion. Transmitral Doppler flow pattern is Grade I-abnormal rela xation pattern. RIGHT VENTRICLE The right ventricle is mildly to moderately dilated. There is normal right ventricular wall thickness . The right ventricular systolic function is normal. ATRIA The left atrium size is normal. The right atrium is mildly dilated. The interatrial septum is intact with no evidence for an atrial septal defect or patent foramen ovale as noted on 2-D or Doppler imagi ng. AORTIC VALVE The aortic valve is trileaflet. The aortic valve is mildly calcified. Doppler and Color Flow revealed moderate aortic regurgitation. There is no significant aortic valvular stenosis. There is no aortic valvular vegetation. MITRAL VALVE The mitral valve is normal in structure and function. There is no evidence of mitral valve prolapse. There is no mitral valve stenosis. Doppler and Color-flow revealed trace mitral regurgitation. TRICUSPID VALVE The tricuspid valve is normal in structure and function. Doppler and Color Flow revealed mild to mode rate tricuspid regurgitation. There is moderate pulmonary hypertension. The PA pressure was estimated at 53 mmHg. There is no tricuspid valve prolapse or vegetation. There is no tricuspid valve stenosis . PULMONIC VALVE Doppler and Color Flow revealed mild pulmonic valvular regurgitation. There is no pulmonic valvular s tenosis. GREAT VESSELS The aortic root is normal in size. The ascending aorta is normal in size. The IVC is dilated and vlad apses <50% with inspiration. PERICARDIAL EFFUSION There is no evidence of significant pericardial effusion. Critical Notification Critical Value: No <Conclusion> The left ventricular systolic function is normal and the ejection fraction is within normal range. Th e Ejection Fraction is 60-65%. There is normal LV segmental wall motion. The right ventricle is mildly to moderately dilated. Doppler and Color Flow revealed moderate aortic regurgitation. (Cannot rule out severe AI based on PH T, consider BRIA) Signed by : Lang Scruggs, Electronically Approved : 12/02/2018 11:14:23
[2018-12-02] MEDS: fentaNYL 12MCG/HR PATCH 1 PATCH PATCH.TD72 TD SCH (12:53)
--- NOTE | 2018-12-02 14:31 | NUR ---
SS following for discharge planning. SS reviewed pt chart. Pt is from home and is currently requiring oxygen. PT/OT ordered and currently on hold. No discharge needs noted at this time. SS will continue to follow for discharge planning.
[2018-12-02] MEDS: HYDROcodone/APAP 10/325 1 TAB TABLET PO PRN ×2 (14:50→21:23)
[2018-12-02 15:00] VITALS: BP 137/63
[2018-12-02] MEDS: ANTI-COAG MONITOR BY PHARMACY. MC PRN (15:09)
--- NOTE | 2018-12-02 15:42 | PDOC2 ---
BERNICE GRAVES CELERY STRIPPER 12/02/18 1542: CARDIAC CONSULT DATE OF CONSULT Date of Consult DATE: 12/02/18 TIME: 15:26 REASON FOR CONSULT Reason for Consult: Aortic insufficiency, PHTN REFERRING PHYSICIAN Referring Physician: Fullbright SOURCE Source: Chart review, Patient HISTORY OF PRESENT ILLNESS HISTORY OF PRESENT ILLNESS This is a pleasant 63 yo female admitted for complains of shortness of breath. Reports that she was discharged few days ago and was newly diagnosed pancreatic CA. At home she started getting SOA. No chest pain. No hx of CAD. Her legs sometimes gets swollen and then get better. Upon further imaging she has been not ed with significant bilateral LE DVT and also PE. Consult is for aortic regurgitation and her EF is normal. No hx of arrhythmias. No passing out. No recent fever or chills. PAST MEDICAL HISTORY Pulmonary: COPD CENTRAL NERVOUS SYSTEM: Periperal neuropathy GI: GERD, GI bleed, Hemorrhoids, Inflam bowel disease (UC) Heme/Onc: Cancer (pancreatic CA) Musculoskeletal: Osteoarthritis Rheumatologic: Fibromyalgia Renal/: Urinary Incontinence Dermatology: Other (skin CA) PAST SURGICAL HISTORY Past Surgical History: Hysterectomy, Other (lipoma removal) FAMILY HISTORY Family History noncontributory SOCIAL HISTORY Smoke: Quit ALCOHOL: none Drugs: None Lives: with Family CURRENT MEDICATIONS CURRENT MEDICATIONS Current Medications Medications (Trade) Dose Ordered Sig/Dena Route PRN Reason Start Time Stop Time Status Last Admin Dose Admin Albuterol/ Ipratropium (Duoneb) 3 ml 1X ONCE NEB 12/01/18 19:00 12/01/18 19:01 DC 12/01/18 19:06 Methylprednisolone Sodium Succinate (SOLU-Medrol 125MG VIAL) 125 mg 1X ONCE IV 12/01/18 19:00 12/01/18 19:01 DC 12/01/18 19:17 Aspirin (Becca Aspirin) 325 mg 1X ONCE PO 12/01/18 20:00 12/01/18 20:01 DC 12/01/18 19:58 Bumetanide (Bumex) 0.5 mg 1X ONCE IV 12/01/18 20:00 12/01/18 20:01 DC 12/01/18 19:58 Enoxaparin Sodium (Lovenox 80mg Syringe) 70 mg 1X ONCE SQ 12/01/18 20:45 12/01/18 20:46 DC 12/01/18 20:18 Albuterol/ Ipratropium (Duoneb) 3 ml RTQID NEB 12/02/18 08:00 12/03/18 07:59 12/02/18 15:08 Enoxaparin Sodium (Lovenox 80mg Syringe) 70 mg Q12HR SQ 12/02/18 09:00 12/02/18 08:45 Aspirin (Children'S Aspirin) 81 mg DAILYWBKFT PO 12/02/18 08:00 12/02/18 08:45 Fentanyl (Duragesic 12mcg/ Hr Patch) 1 patch Q3DAYS TD 12/02/18 09:00 12/02/18 12:53 Acetaminophen/ Hydrocodone Bitart (Lortab 10/325) 1 tab PRN Q4HRS PRN PO PAIN 12/01/18 21:30 12/02/18 14:50 Pantoprazole Sodium (Protonix) 40 mg DAILYAC PO 12/02/18 07:30 12/02/18 08:45 Polyethylene Glycol (miraLAX PACKET) 17 gm DAILY PO 12/02/18 09:00 12/02/18 08:45 Amitriptyline HCl (Elavil) 250 mg QHS PO 12/01/18 22:00 12/01/18 22:08 Gabapentin (Neurontin) 800 mg QID PO 12/01/18 22:00 12/02/18 13:19 Info (Anti-Coagulation Monitoring By Pharmacy) 1 each PRN DAILY PRN MC SEE COMMENTS 12/02/18 10:15 12/02/18 15:09 ALLERGIES ALLERGIES: Coded Allergies: iodine (Verified Allergy, Intermediate, 11/24/18) meperidine (Verified Allergy, Intermediate, 11/24/18) ROS Review of System 14 point ROS evaluated with pertinent positives noted per HPI PHYSICAL EXAM General: Alert, Oriented X3, Cooperative, No acute distress HEENT: Atraumatic, Mucous membr. moist/pink Lungs: Clear to auscultation, Normal air movement Heart: Regular rate (SR/ST), Normal S1, Normal S2, Other (S3/3/6 diastolic murmur to erbs) Abdomen: Soft, No tenderness Extremities: No cyanosis, Other (trace LE, hot to touch skin to bilateral LE) Skin: No breakdown, No significant lesion Neuro: Normal speech, Sensation intact Psych/Mental Status: Mental status NL, Mood NL MUSCULOSKELETAL: Osteoarthritic changes both hands VITALS/I&O VITALS/I&O: Vital Signs Date Time Temp Pulse Resp B/P (MAP) Pulse Ox O2 Delivery O2 Flow Rate FiO2 12/02/18 15:08 94 Nasal Cannula 4.0 12/02/18 15:00 97.5 95 18 137/63 (87) 97.5 I & O 12/01/18 12/01/18 12/02/18 14:59 22:59 06:59 Intake Total 300 ml Output Total 600 ml Balance -600 ml 300 ml LABS Lab: Laboratory Tests Test 12/01/18 18:00 12/01/18 18:50 12/02/18 00:05 12/02/18 03:50 Lactic Acid Level 1.5 mmol/L (0.4-2.0) White Blood Count 11.7 x10^3/uL (4.0-11.0) H Red Blood Count 3.69 x10^6/uL (3.50-5.40) Hemoglobin 11.6 g/dL (12.0-15.5) L Hematocrit 34.5 % (36.0-47.0) L Mean Corpuscular Volume 94 fL (79-100) Mean Corpuscular Hemoglobin 32 pg (25-35) Mean Corpuscular Hemoglobin Concent 34 g/dL (31-37) Red Cell Distribution Width 13.7 % (11.5-14.5) Platelet Count 262 x10^3/uL (140-400) Neutrophils (%) (Auto) 79 % (31-73) H Lymphocytes (%) (Auto) 10 % (24-48) L Monocytes (%) (Auto) 8 % (0-9) Eosinophils (%) (Auto) 3 % (0-3) Basophils (%) (Auto) 1 % (0-3) Neutrophils # (Auto) 9.2 x10^3/uL (1.8-7.7) H Lymphocytes # (Auto) 1.2 x10^3/uL (1.0-4.8) Monocytes # (Auto) 0.9 x10^3/uL (0.0-1.1) Eosinophils # (Auto) 0.3 x10^3/uL (0.0-0.7) Basophils # (Auto) 0.1 x10^3/uL (0.0-0.2) D-Dimer (Merary) > 20.00 ug/mlFEU Sodium Level 138 mmol/L (136-145) Potassium Level 4.1 mmol/L (3.5-5.1) Chloride Level 99 mmol/L (98-107) Carbon Dioxide Level 31 mmol/L (21-32) Anion Gap 8 (6-14) Blood Urea Nitrogen 8 mg/dL (7-20) Creatinine 1.2 mg/dL (0.6-1.0) H Estimated GFR (Cockcroft-Gault) 45.2 BUN/Creatinine Ratio 7 (6-20) Glucose Level 123 mg/dL (70-99) H Calcium Level 9.1 mg/dL (8.5-10.1) Total Bilirubin 0.3 mg/dL (0.2-1.0) Aspartate Amino Transferase (AST) 34 U/L (15-37) Alanine Aminotransferase (ALT) 24 U/L (14-59) Alkaline Phosphatase 443 U/L (46-116) H Creatine Kinase 133 U/L (26-192) Troponin I Quantitative 0.160 ng/mL (0.000-0.055) 0.188 ng/mL (0.000-0.055) 0.201 ng/mL (0.000-0.055) EC-Bmq-Q-Type Natriuretic Peptide 8081 pg/mL (0-124) H Total Protein 7.4 g/dL (6.4-8.2) Albumin 2.7 g/dL (3.4-5.0) L Albumin/Globulin Ratio 0.6 (1.0-1.7) L Triglycerides Level 69 mg/dL (0-150) Cholesterol Level 207 mg/dL (0-200) H LDL Cholesterol, Calculated 141 mg/dL (0-100) H VLDL Cholesterol, Calculated 14 mg/dL (0-40) Non-HDL Cholesterol Calculated 155 mg/dL (0-129) H HDL Cholesterol 52 mg/dL (40-60) Cholesterol/HDL Ratio 4.0 Laboratory Tests 12/01/18 18:50 Laboratory Tests 12/01/18 18:50 ECHOCARDIOGRAM ECHOCARDIOGRAM <Conclusion> The left ventricular systolic function is normal and the ejection fraction is within normal range. The Ejection Fraction is 60-65%. There is normal LV segmental wall motion. The right ventricle is mildly to moderately dilated. Doppler and Color Flow revealed moderate aortic regurgitation. (Cannot rule out severe AI based on PHT, consider BRIA) DATE: 12/02/18 1052 ASSESSMENT/PLAN ASSESSMENT/PLAN 1. PE with severe bilateral LE DVT 2. Mild troponin elevation: peaked at 0.2. RV dilated consistent with PE 2. Metastatic pancreatic CA: recently diagnosed- hemonc following 3. Suspected COPD 4. Moderate AI: EF and WM nml 5. Moderate pulmonary HTN 6. Reactive sinus tach 7. HLP Recommendations 1. BP is controlled no antiHTN at this time. Caution on any use of BB or nondihydropyridines to avoid significant lowering of HR in relation to her AI. 2. Lovenox therapy ongoing 3. Could recheck echo in 6 months pending type of CA treatment. 4. Nothing further cardiac goel. Will defer VTE treatment to pulmonary FLOR GONZALEZ MD 12/02/18 2146: CARDIAC CONSULT ASSESSMENT/PLAN ASSESSMENT/PLAN Patient seen and examined. Agree with NAILING MACHINE OPERATOR AUTOMATIC's assessment and plan. Cont AC per pulm for PE 2D echo showed normal LVF BP better controlled Slight trop elevation demand ischemia Plan outpatient ischemic evaluation Thank you for your consultation BERNICE GRAVES APRN Dec 02, 2018 15:42 FLOR GONZALEZ MD Dec 02, 2018 21:46
[2018-12-02 19:00] VITALS: BP 99/49
[2018-12-02] MEDS: ATORVASTATIN CALCIUM 10 MG TABLET. PO SCH (21:22)
[2018-12-02] MEDS: AMITRIPTYLINE HCL 25 MG TABLET. PO SCH (21:25)
[2018-12-02 23:00] VITALS: BP 113/49
--- NOTE | 2018-12-02 23:28 | CONS ---
DATE OF CONSULTATION: 12/02/2018 MEDICAL ONCOLOGY CONSULTATION REPORT REQUESTING PHYSICIAN: Dr. Jordy Jarquin. REASON FOR CONSULTATION: Pulmonary embolism and DVT in a patient diagnosed with stage 4 pancreatic cancer. HISTORY OF PRESENT ILLNESS: The patient is a 63-year-old female who was diagnosed with stage 4 pancreatic cancer when she had a liver biopsy on 11/23/2018. A CT scan of the abdomen and pelvis on 11/22/2018 had revealed multiple liver metastases, thickened sigmoid colon. Liver biopsy performed on 11/23/2018 revealed metastatic adenocarcinoma compatible with the pancreatic primary. She presented to [facility] on 12/01/2018 with worsening dyspnea and almost had a syncopal episode, but no chest pain. She underwent V/Q scan on 12/01/2018 that revealed multiple bilateral segmental/subsegmental mismatch defects collectively compatible with high probability for pulmonary embolism. Venous Doppler of the lower extremities on 12/01/2018 revealed extensive DVT in both the lower extremities. Pulmonary consultation was obtained in which she was started on Lovenox. PAST MEDICAL HISTORY: Pancreatic cancer diagnosed in 10/2018 with liver metastasis, suspected COPD, history of neuropathy, hysterectomy. SOCIAL HISTORY: She has a 01-mlcu-rftp smoking history. FAMILY HISTORY: Sister had breast cancer. Sister's daughter also has a history of breast cancer. REVIEW OF SYSTEMS: A 12-point review of system was performed. Pertinent positives are mentioned in the history of present illness. Rest of the system review is negative. PHYSICAL EXAMINATION: GENERAL APPEARANCE: The patient is a 63-year-old female who is in no acute cardiorespiratory distress. VITAL SIGNS: Blood pressure 132/60, temperature 97.5. HEENT: Atraumatic, normocephalic. EYES: No icterus. NECK: Supple. CHEST: Bilaterally symmetrical. HEART: S1, S2 normal. ABDOMEN: Soft, nontender. CENTRAL NERVOUS SYSTEM: No focal deficits. LYMPHATICS: No lymphadenopathy. SKIN: No rashes. PSYCHOLOGIC: Mood and affect are appropriate. LABORATORY DATA: WBC 11.7, hemoglobin 11.6, platelet count 262. Creatinine 1.2. IMPRESSION AND PLAN: 1. Acute pulmonary embolism and bilateral deep venous thrombosis, diagnosed on 12/01/2018. She has been started on anticoagulation with Lovenox. Etiology is thought to be underlying pancreatic cancer. I discussed with the patient regarding anticoagulation options to be done as outpatient. I gave the option to continue Lovenox as outpatient. She prefers oral anticoagulant. Hence, I suggested Eliquis and I reviewed the risks and benefits, and she prefers to proceed with Eliquis upon discharge. 2. Stage 4 pancreatic cancer with liver metastasis diagnosed by liver biopsy on 11/23/2018. She will continue to follow up with Dr. Marisol Miller for management of pancreatic cancer. PEYTON GIRON MD DR: JESSICA/singh JOB#: [id number] / [id number] ABEL
[2018-12-03 03:00] VITALS: BP 102/44
[2018-12-03 04:03] LABS: BASO % 0 % (0-3); EOS # 0.2 x10^3/uL (0.0-0.7); EOS % 2 % (0-3); HEMATOCRIT 29.3 % (36.0-47.0); HEMOGLOBIN 9.8 g/dL (12.0-15.5); LYMPH # 2.1 x10^3/uL (1.0-4.8); LYMPH % 20 % (24-48); MEAN CORPUSCULAR HEMOGLOBIN 31 pg (25-35); MEAN CORPUSCULAR HGB CONC 34 g/dL (31-37); MEAN CORPUSCULAR VOLUME 94 fL (79-100); MONO # 0.9 x10^3/uL (0.0-1.1); MONO % 9 % (0-9); NEUT % 69 % (31-73); PLATELET COUNT 238 x10^3/uL (140-400); RED BLOOD COUNT 3.13 x10^6/uL (3.50-5.40); RED CELL DISTRIBUTION WIDTH 14.1 % (11.5-14.5); WHITE BLOOD COUNT 10.1 x10^3/uL (4.0-11.0)
[2018-12-03 04:29] LABS: ALBUMIN 2.3 g/dL (3.4-5.0); ALBUMIN/GLOBULIN RATIO 0.6 (1.0-1.7); CALCIUM 8.8 mg/dL (8.5-10.1); GFR 55.8; POTASSIUM 4.1 mmol/L (3.5-5.1); TOTAL BILIRUBIN 0.2 mg/dL (0.2-1.0); TOTAL PROTEIN 6.4 g/dL (6.4-8.2)
[2018-12-03 07:00] VITALS: BP 127/58
--- NOTE | 2018-12-03 07:07 | PDOC ---
PULMONARY PROGRESS NOTES Subjective sob better, no cp, has occ cough, on home 02 Vitals Vital Signs Date Time Temp Pulse Resp B/P (MAP) Pulse Ox O2 Delivery O2 Flow Rate FiO2 12/03/18 03:00 98.0 103 18 102/44 (63) 91 Nasal Cannula 5.0 98.0 ROS: No Nausea General: Alert HEENT: Other (nc at perrl) Lungs: Other (deminished) Cardiovascular: S1, S2 Abdomen: Soft, Non-tender Neuro Exam: Alert Skin: Warm Labs Laboratory Tests Test 12/01/18 18:00 12/01/18 18:50 12/02/18 00:05 12/02/18 03:50 Lactic Acid Level 1.5 mmol/L (0.4-2.0) White Blood Count 11.7 x10^3/uL (4.0-11.0) Red Blood Count 3.69 x10^6/uL (3.50-5.40) Hemoglobin 11.6 g/dL (12.0-15.5) Hematocrit 34.5 % (36.0-47.0) Mean Corpuscular Volume 94 fL (79-100) Mean Corpuscular Hemoglobin 32 pg (25-35) Mean Corpuscular Hemoglobin Concent 34 g/dL (31-37) Red Cell Distribution Width 13.7 % (11.5-14.5) Platelet Count 262 x10^3/uL (140-400) Neutrophils (%) (Auto) 79 % (31-73) Lymphocytes (%) (Auto) 10 % (24-48) Monocytes (%) (Auto) 8 % (0-9) Eosinophils (%) (Auto) 3 % (0-3) Basophils (%) (Auto) 1 % (0-3) Neutrophils # (Auto) 9.2 x10^3/uL (1.8-7.7) Lymphocytes # (Auto) 1.2 x10^3/uL (1.0-4.8) Monocytes # (Auto) 0.9 x10^3/uL (0.0-1.1) Eosinophils # (Auto) 0.3 x10^3/uL (0.0-0.7) Basophils # (Auto) 0.1 x10^3/uL (0.0-0.2) D-Dimer (Merary) > 20.00 ug/mlFEU Sodium Level 138 mmol/L (136-145) Potassium Level 4.1 mmol/L (3.5-5.1) Chloride Level 99 mmol/L (98-107) Carbon Dioxide Level 31 mmol/L (21-32) Anion Gap 8 (6-14) Blood Urea Nitrogen 8 mg/dL (7-20) Creatinine 1.2 mg/dL (0.6-1.0) Estimated GFR (Cockcroft-Gault) 45.2 BUN/Creatinine Ratio 7 (6-20) Glucose Level 123 mg/dL (70-99) Calcium Level 9.1 mg/dL (8.5-10.1) Total Bilirubin 0.3 mg/dL (0.2-1.0) Aspartate Amino Transf (AST/SGOT) 34 U/L (15-37) Alanine Aminotransferase (ALT/SGPT) 24 U/L (14-59) Alkaline Phosphatase 443 U/L (46-116) Creatine Kinase 133 U/L (26-192) Troponin I Quantitative 0.160 ng/mL (0.000-0.055) 0.188 ng/mL (0.000-0.055) 0.201 ng/mL (0.000-0.055) WO-Sye-I-Type Natriuretic Peptide 8081 pg/mL (0-124) Total Protein 7.4 g/dL (6.4-8.2) Albumin 2.7 g/dL (3.4-5.0) Albumin/Globulin Ratio 0.6 (1.0-1.7) Triglycerides Level 69 mg/dL (0-150) Cholesterol Level 207 mg/dL (0-200) LDL Cholesterol, Calculated 141 mg/dL (0-100) VLDL Cholesterol, Calculated 14 mg/dL (0-40) Non-HDL Cholesterol Calculated 155 mg/dL (0-129) HDL Cholesterol 52 mg/dL (40-60) Cholesterol/HDL Ratio 4.0 Test 12/03/18 03:30 White Blood Count 10.1 x10^3/uL (4.0-11.0) Red Blood Count 3.13 x10^6/uL (3.50-5.40) Hemoglobin 9.8 g/dL (12.0-15.5) Hematocrit 29.3 % (36.0-47.0) Mean Corpuscular Volume 94 fL (79-100) Mean Corpuscular Hemoglobin 31 pg (25-35) Mean Corpuscular Hemoglobin Concent 34 g/dL (31-37) Red Cell Distribution Width 14.1 % (11.5-14.5) Platelet Count 238 x10^3/uL (140-400) Neutrophils (%) (Auto) 69 % (31-73) Lymphocytes (%) (Auto) 20 % (24-48) Monocytes (%) (Auto) 9 % (0-9) Eosinophils (%) (Auto) 2 % (0-3) Basophils (%) (Auto) 0 % (0-3) Neutrophils # (Auto) 7.0 x10^3/uL (1.8-7.7) Lymphocytes # (Auto) 2.1 x10^3/uL (1.0-4.8) Monocytes # (Auto) 0.9 x10^3/uL (0.0-1.1) Eosinophils # (Auto) 0.2 x10^3/uL (0.0-0.7) Basophils # (Auto) 0.0 x10^3/uL (0.0-0.2) Sodium Level 137 mmol/L (136-145) Potassium Level 4.1 mmol/L (3.5-5.1) Chloride Level 99 mmol/L (98-107) Carbon Dioxide Level 31 mmol/L (21-32) Anion Gap 7 (6-14) Blood Urea Nitrogen 13 mg/dL (7-20) Creatinine 1.0 mg/dL (0.6-1.0) Estimated GFR (Cockcroft-Gault) 55.8 BUN/Creatinine Ratio 13 (6-20) Glucose Level 126 mg/dL (70-99) Calcium Level 8.8 mg/dL (8.5-10.1) Total Bilirubin 0.2 mg/dL (0.2-1.0) Aspartate Amino Transf (AST/SGOT) 32 U/L (15-37) Alanine Aminotransferase (ALT/SGPT) 18 U/L (14-59) Alkaline Phosphatase 396 U/L (46-116) Total Protein 6.4 g/dL (6.4-8.2) Albumin 2.3 g/dL (3.4-5.0) Albumin/Globulin Ratio 0.6 (1.0-1.7) Laboratory Tests Test 12/03/18 03:30 White Blood Count 10.1 x10^3/uL (4.0-11.0) Red Blood Count 3.13 x10^6/uL (3.50-5.40) Hemoglobin 9.8 g/dL (12.0-15.5) Hematocrit 29.3 % (36.0-47.0) Mean Corpuscular Volume 94 fL (79-100) Mean Corpuscular Hemoglobin 31 pg (25-35) Mean Corpuscular Hemoglobin Concent 34 g/dL (31-37) Red Cell Distribution Width 14.1 % (11.5-14.5) Platelet Count 238 x10^3/uL (140-400) Neutrophils (%) (Auto) 69 % (31-73) Lymphocytes (%) (Auto) 20 % (24-48) Monocytes (%) (Auto) 9 % (0-9) Eosinophils (%) (Auto) 2 % (0-3) Basophils (%) (Auto) 0 % (0-3) Neutrophils # (Auto) 7.0 x10^3/uL (1.8-7.7) Lymphocytes # (Auto) 2.1 x10^3/uL (1.0-4.8) Monocytes # (Auto) 0.9 x10^3/uL (0.0-1.1) Eosinophils # (Auto) 0.2 x10^3/uL (0.0-0.7) Basophils # (Auto) 0.0 x10^3/uL (0.0-0.2) Sodium Level 137 mmol/L (136-145) Potassium Level 4.1 mmol/L (3.5-5.1) Chloride Level 99 mmol/L (98-107) Carbon Dioxide Level 31 mmol/L (21-32) Anion Gap 7 (6-14) Blood Urea Nitrogen 13 mg/dL (7-20) Creatinine 1.0 mg/dL (0.6-1.0) Estimated GFR (Cockcroft-Gault) 55.8 BUN/Creatinine Ratio 13 (6-20) Glucose Level 126 mg/dL (70-99) Calcium Level 8.8 mg/dL (8.5-10.1) Total Bilirubin 0.2 mg/dL (0.2-1.0) Aspartate Amino Transf (AST/SGOT) 32 U/L (15-37) Alanine Aminotransferase (ALT/SGPT) 18 U/L (14-59) Alkaline Phosphatase 396 U/L (46-116) Total Protein 6.4 g/dL (6.4-8.2) Albumin 2.3 g/dL (3.4-5.0) Albumin/Globulin Ratio 0.6 (1.0-1.7) Medications Active Scripts Medications Dose Route/Sig Max Daily Dose Days Date Category Narcan (Naloxone HCl) 4 Mg [place] 4 Mg NS PRN DAILY PRN 30 11/28/18 Rx Polyethylene Glycol 3350 17 Gm Powd.pack 17 Gm PO DAILY 11/28/18 Rx FENTANYL 12mcg/hr (Fentanyl) 1 Each Patch.td72 1 Patch TD Q3DAYS 11/28/18 Rx Pantoprazole Sodium (Pantoprazole Sodium) 40 Mg Tablet.dr 40 Mg PO DAILYAC 11/28/18 Rx Aspirin 81 Mg Tab.chew 1 Tab PO DAILYWBKFT 11/22/18 Reported Amitriptyline Hcl 100 Mg Tablet 2.5 Tab PO QHS 05/11/18 Reported Hydrocodone-Apap 10-325 (Hydrocodone Bit/Acetaminophen) 1 Tab Tablet 1 Tab PO PRN Q4HRS PRN 05/11/18 Reported Gabapentin 800 Mg Tablet 800 Mg PO QID 05/11/18 Reported Comments echo The left ventricular systolic function is normal and the ejection fraction is within normal range. The Ejection Fraction is 60-65%. There is normal LV segmental wall motion. The right ventricle is mildly to moderately dilated. Doppler and Color Flow revealed moderate aortic regurgitation. (Cannot rule out severe AI based on PHT, consider BRIA) Impression . IMPRESSION: 1. Acute pulmonary embolism with multiple bilateral segmental and subsegmental mismatch defects along with acute extensive deep vein thrombosis. The risk factor is underlying pancreatic cancer, presenting as hypercoagulable state. 2. Acute on chronic hypoxic respiratory failure secondary to acute pulmonary embolism and underlying chronic obstructive pulmonary disease. 3. Recently diagnosed pancreatic cancer, not been on treatment yet. 4. Mildly increased troponin level, suspect secondary to RV ischemia. 5. Hemodynamically stable, does not require TPA. 6. Suspected underlying chronic obstructive pulmonary disease, could be severe. Plan . RECOMMENDATIONS: 1. Continue with present oxygen. 2. echo reviewed, ? severe AI cardiology on teo 3. Continue full-dose Lovenox. 4. oral anticoagulation, eliquis 5. Hematology/Oncology consulted, lovenox or eliquis, pt decided eliquis 6. Initiate pancreatic cancer treatment. 7. The patient will require lifelong anticoagulation due to underlying malignancy. 8. Continue bronchodilators. discussed w pt KYARA BAIN MD Dec 03, 2018 07:07
--- NOTE | 2018-12-03 07:30 | PDOC ---
PROGRESS NOTES History of Present Illness History of Present Illness VTE Prophylaxis Ordered VTE Prophylaxis Devices: Contraindicated VTE Pharmacological Prophylaxi: Yes Assessment/Plan Assessment/Plan IMPRESSION: Multiple bilateral segmental/subsegmental mismatched defects collectively compatible with high probability for pulmonary embolism. Acute on chronic hypoxic respiratory failure secondary to acute pulmonary embolism and underlying chronic obstructive pulmonary disease. Recently diagnosed pancreatic cancer, . increased troponin level, suspect secondary to RV ischemia. Hemodynamically stable, does not require TPA. chronic obstructive pulmonary disease, could be severe Metastatic pancreatic cancer BX POS METASTATIC ADENOCARCINOMA, MODERATELY DIFFERENTIATED. Abdominal Pain Anemia HTN Peripheral neuropathy DM2, bladder prolapse GERD Fibromyalgia Extensive deep venous thrombosis burden involving both lower extremities with complete occlusion of the bilateral superficial femoral veins and popliteal veins. Partially occlusive thrombus within the bilateral posterior tibial veins. The common femoral veins are patent ECHO 12/02 Doppler and Color Flow revealed moderate aortic regurgitation. (Cannot rule out severe AI based on PHT, consider BRIA) plan admit cvc consult pulmonary sq lovenox protocol for PE. ONCOLOGY CONSULT CONSULT CARDIOLOGY HOME MEDS PAIN CONTROL /// ADMIT 36 MIN PT EXAM, CHART REVIEW, > 50% OF TIME SPENT WITH EXAM, CHART REVIEW, PT CARE COORDINATION Vitals Vitals Vital Signs Date Time Temp Pulse Resp B/P (MAP) Pulse Ox O2 Delivery O2 Flow Rate FiO2 12/03/18 03:00 98.0 103 18 102/44 (63) 91 Nasal Cannula 5.0 98.0 Physical Exam General: Alert, Oriented X3, Cooperative, No acute distress Heart: Regular rate (SR/ST), Normal S1, Normal S2, Other (S3/3/6 diastolic murmur to erbs) Lungs: Clear Abdomen: Soft, No tenderness Extremities: No cyanosis, Other (trace LE, hot to touch skin to bilateral LE) Skin: No breakdown, No significant lesion Labs LABS Laboratory Tests Test 12/03/18 03:30 White Blood Count 10.1 x10^3/uL (4.0-11.0) Red Blood Count 3.13 x10^6/uL (3.50-5.40) Hemoglobin 9.8 g/dL (12.0-15.5) Hematocrit 29.3 % (36.0-47.0) Mean Corpuscular Volume 94 fL (79-100) Mean Corpuscular Hemoglobin 31 pg (25-35) Mean Corpuscular Hemoglobin Concent 34 g/dL (31-37) Red Cell Distribution Width 14.1 % (11.5-14.5) Platelet Count 238 x10^3/uL (140-400) Neutrophils (%) (Auto) 69 % (31-73) Lymphocytes (%) (Auto) 20 % (24-48) Monocytes (%) (Auto) 9 % (0-9) Eosinophils (%) (Auto) 2 % (0-3) Basophils (%) (Auto) 0 % (0-3) Neutrophils # (Auto) 7.0 x10^3/uL (1.8-7.7) Lymphocytes # (Auto) 2.1 x10^3/uL (1.0-4.8) Monocytes # (Auto) 0.9 x10^3/uL (0.0-1.1) Eosinophils # (Auto) 0.2 x10^3/uL (0.0-0.7) Basophils # (Auto) 0.0 x10^3/uL (0.0-0.2) Sodium Level 137 mmol/L (136-145) Potassium Level 4.1 mmol/L (3.5-5.1) Chloride Level 99 mmol/L (98-107) Carbon Dioxide Level 31 mmol/L (21-32) Anion Gap 7 (6-14) Blood Urea Nitrogen 13 mg/dL (7-20) Creatinine 1.0 mg/dL (0.6-1.0) Estimated GFR (Cockcroft-Gault) 55.8 BUN/Creatinine Ratio 13 (6-20) Glucose Level 126 mg/dL (70-99) Calcium Level 8.8 mg/dL (8.5-10.1) Total Bilirubin 0.2 mg/dL (0.2-1.0) Aspartate Amino Transf (AST/SGOT) 32 U/L (15-37) Alanine Aminotransferase (ALT/SGPT) 18 U/L (14-59) Alkaline Phosphatase 396 U/L (46-116) Total Protein 6.4 g/dL (6.4-8.2) Albumin 2.3 g/dL (3.4-5.0) Albumin/Globulin Ratio 0.6 (1.0-1.7) Assessment and Plan Assessmemt and Plan Problems Medical Problems: (1) Elevated d-dimer Status: Acute (2) Elevated troponin Status: Acute (3) Hypoxia Status: Acute (4) Pancreatic cancer Status: Acute (5) Shortness of breath Status: Acute Comment Review of Relevant I have reviewed the following items les (where applicable) has been applied. Labs Laboratory Tests Test 12/01/18 18:00 12/01/18 18:50 12/02/18 00:05 12/02/18 03:50 Lactic Acid Level 1.5 mmol/L (0.4-2.0) White Blood Count 11.7 x10^3/uL (4.0-11.0) Red Blood Count 3.69 x10^6/uL (3.50-5.40) Hemoglobin 11.6 g/dL (12.0-15.5) Hematocrit 34.5 % (36.0-47.0) Mean Corpuscular Volume 94 fL (79-100) Mean Corpuscular Hemoglobin 32 pg (25-35) Mean Corpuscular Hemoglobin Concent 34 g/dL (31-37) Red Cell Distribution Width 13.7 % (11.5-14.5) Platelet Count 262 x10^3/uL (140-400) Neutrophils (%) (Auto) 79 % (31-73) Lymphocytes (%) (Auto) 10 % (24-48) Monocytes (%) (Auto) 8 % (0-9) Eosinophils (%) (Auto) 3 % (0-3) Basophils (%) (Auto) 1 % (0-3) Neutrophils # (Auto) 9.2 x10^3/uL (1.8-7.7) Lymphocytes # (Auto) 1.2 x10^3/uL (1.0-4.8) Monocytes # (Auto) 0.9 x10^3/uL (0.0-1.1) Eosinophils # (Auto) 0.3 x10^3/uL (0.0-0.7) Basophils # (Auto) 0.1 x10^3/uL (0.0-0.2) D-Dimer (Merary) > 20.00 ug/mlFEU Sodium Level 138 mmol/L (136-145) Potassium Level 4.1 mmol/L (3.5-5.1) Chloride Level 99 mmol/L (98-107) Carbon Dioxide Level 31 mmol/L (21-32) Anion Gap 8 (6-14) Blood Urea Nitrogen 8 mg/dL (7-20) Creatinine 1.2 mg/dL (0.6-1.0) Estimated GFR (Cockcroft-Gault) 45.2 BUN/Creatinine Ratio 7 (6-20) Glucose Level 123 mg/dL (70-99) Calcium Level 9.1 mg/dL (8.5-10.1) Total Bilirubin 0.3 mg/dL (0.2-1.0) Aspartate Amino Transf (AST/SGOT) 34 U/L (15-37) Alanine Aminotransferase (ALT/SGPT) 24 U/L (14-59) Alkaline Phosphatase 443 U/L (46-116) Creatine Kinase 133 U/L (26-192) Troponin I Quantitative 0.160 ng/mL (0.000-0.055) 0.188 ng/mL (0.000-0.055) 0.201 ng/mL (0.000-0.055) AC-Umh-V-Type Natriuretic Peptide 8081 pg/mL (0-124) Total Protein 7.4 g/dL (6.4-8.2) Albumin 2.7 g/dL (3.4-5.0) Albumin/Globulin Ratio 0.6 (1.0-1.7) Triglycerides Level 69 mg/dL (0-150) Cholesterol Level 207 mg/dL (0-200) LDL Cholesterol, Calculated 141 mg/dL (0-100) VLDL Cholesterol, Calculated 14 mg/dL (0-40) Non-HDL Cholesterol Calculated 155 mg/dL (0-129) HDL Cholesterol 52 mg/dL (40-60) Cholesterol/HDL Ratio 4.0 Test 12/03/18 03:30 White Blood Count 10.1 x10^3/uL (4.0-11.0) Red Blood Count 3.13 x10^6/uL (3.50-5.40) Hemoglobin 9.8 g/dL (12.0-15.5) Hematocrit 29.3 % (36.0-47.0) Mean Corpuscular Volume 94 fL (79-100) Mean Corpuscular Hemoglobin 31 pg (25-35) Mean Corpuscular Hemoglobin Concent 34 g/dL (31-37) Red Cell Distribution Width 14.1 % (11.5-14.5) Platelet Count 238 x10^3/uL (140-400) Neutrophils (%) (Auto) 69 % (31-73) Lymphocytes (%) (Auto) 20 % (24-48) Monocytes (%) (Auto) 9 % (0-9) Eosinophils (%) (Auto) 2 % (0-3) Basophils (%) (Auto) 0 % (0-3) Neutrophils # (Auto) 7.0 x10^3/uL (1.8-7.7) Lymphocytes # (Auto) 2.1 x10^3/uL (1.0-4.8) Monocytes # (Auto) 0.9 x10^3/uL (0.0-1.1) Eosinophils # (Auto) 0.2 x10^3/uL (0.0-0.7) Basophils # (Auto) 0.0 x10^3/uL (0.0-0.2) Sodium Level 137 mmol/L (136-145) Potassium Level 4.1 mmol/L (3.5-5.1) Chloride Level 99 mmol/L (98-107) Carbon Dioxide Level 31 mmol/L (21-32) Anion Gap 7 (6-14) Blood Urea Nitrogen 13 mg/dL (7-20) Creatinine 1.0 mg/dL (0.6-1.0) Estimated GFR (Cockcroft-Gault) 55.8 BUN/Creatinine Ratio 13 (6-20) Glucose Level 126 mg/dL (70-99) Calcium Level 8.8 mg/dL (8.5-10.1) Total Bilirubin 0.2 mg/dL (0.2-1.0) Aspartate Amino Transf (AST/SGOT) 32 U/L (15-37) Alanine Aminotransferase (ALT/SGPT) 18 U/L (14-59) Alkaline Phosphatase 396 U/L (46-116) Total Protein 6.4 g/dL (6.4-8.2) Albumin 2.3 g/dL (3.4-5.0) Albumin/Globulin Ratio 0.6 (1.0-1.7) Laboratory Tests Test 12/03/18 03:30 White Blood Count 10.1 x10^3/uL (4.0-11.0) Red Blood Count 3.13 x10^6/uL (3.50-5.40) Hemoglobin 9.8 g/dL (12.0-15.5) Hematocrit 29.3 % (36.0-47.0) Mean Corpuscular Volume 94 fL (79-100) Mean Corpuscular Hemoglobin 31 pg (25-35) Mean Corpuscular Hemoglobin Concent 34 g/dL (31-37) Red Cell Distribution Width 14.1 % (11.5-14.5) Platelet Count 238 x10^3/uL (140-400) Neutrophils (%) (Auto) 69 % (31-73) Lymphocytes (%) (Auto) 20 % (24-48) Monocytes (%) (Auto) 9 % (0-9) Eosinophils (%) (Auto) 2 % (0-3) Basophils (%) (Auto) 0 % (0-3) Neutrophils # (Auto) 7.0 x10^3/uL (1.8-7.7) Lymphocytes # (Auto) 2.1 x10^3/uL (1.0-4.8) Monocytes # (Auto) 0.9 x10^3/uL (0.0-1.1) Eosinophils # (Auto) 0.2 x10^3/uL (0.0-0.7) Basophils # (Auto) 0.0 x10^3/uL (0.0-0.2) Sodium Level 137 mmol/L (136-145) Potassium Level 4.1 mmol/L (3.5-5.1) Chloride Level 99 mmol/L (98-107) Carbon Dioxide Level 31 mmol/L (21-32) Anion Gap 7 (6-14) Blood Urea Nitrogen 13 mg/dL (7-20) Creatinine 1.0 mg/dL (0.6-1.0) Estimated GFR (Cockcroft-Gault) 55.8 BUN/Creatinine Ratio 13 (6-20) Glucose Level 126 mg/dL (70-99) Calcium Level 8.8 mg/dL (8.5-10.1) Total Bilirubin 0.2 mg/dL (0.2-1.0) Aspartate Amino Transf (AST/SGOT) 32 U/L (15-37) Alanine Aminotransferase (ALT/SGPT) 18 U/L (14-59) Alkaline Phosphatase 396 U/L (46-116) Total Protein 6.4 g/dL (6.4-8.2) Albumin 2.3 g/dL (3.4-5.0) Albumin/Globulin Ratio 0.6 (1.0-1.7) Microbiology 12/01/18 Blood Culture - Preliminary, Resulted NO GROWTH AFTER 1 DAY Medications Current Medications Albuterol/ Ipratropium (Duoneb) 3 ml 1X ONCE NEB Last administered on 12/01/18at 19:06; Start 12/01/18 at 19:00; Stop 12/01/18 at 19:01; Status DC Methylprednisolone Sodium Succinate (SOLU-Medrol 125MG VIAL) 125 mg 1X ONCE IV Last administered on 12/01/18at 19:17; Start 12/01/18 at 19:00; Stop 12/01/18 at 19:01; Status DC Aspirin (Becca Aspirin) 325 mg 1X ONCE PO Last administered on 12/01/18at 19:58; Start 12/01/18 at 20:00; Stop 12/01/18 at 20:01; Status DC Bumetanide (Bumex) 0.5 mg 1X ONCE IV Last administered on 12/01/18at 19:58; Start 12/01/18 at 20:00; Stop 12/01/18 at 20:01; Status DC Enoxaparin Sodium (Lovenox 80mg Syringe) 70 mg 1X ONCE SQ Last administered on 12/01/18at 20:18; Start 12/01/18 at 20:45; Stop 12/01/18 at 20:46; Status DC Ondansetron HCl (Zofran) 4 mg PRN Q8HRS PRN IV NAUSEA/VOMITING; Start 12/01/18 at 20:30; Stop 12/02/18 at 20:29; Status DC Fentanyl Citrate (Fentanyl 2ml Vial) 50 mcg PRN Q4HRS PRN IV PAIN; Start 12/01/18 at 20:30 Acetaminophen (Tylenol) 650 mg PRN Q4HRS PRN PO FEVER; Start 12/01/18 at 20:30; Stop 12/02/18 at 20:29; Status DC Albuterol/ Ipratropium (Duoneb) 3 ml RTQID NEB Last administered on 12/02/18at 20:13; Start 12/02/18 at 08:00; Stop 12/03/18 at 07:59 Enoxaparin Sodium (Lovenox 80mg Syringe) 70 mg Q12HR SQ Last administered on 12/02/18 21:32; Start 12/02/18 at 09:00 Aspirin (Children'S Aspirin) 81 mg DAILYWBKFT PO Last administered on 12/02/18 08:45; Start 12/02/18 at 08:00 Fentanyl (Duragesic 12mcg/ Hr Patch) 1 patch Q3DAYS TD Last administered on 12/02/18 12:53; Start 12/02/18 at 09:00 Acetaminophen/ Hydrocodone Bitart (Lortab 10/325) 1 tab PRN Q4HRS PRN PO PAIN Last administered on 12/02/18 21:32; Start 12/01/18 at 21:30 Pantoprazole Sodium (Protonix) 40 mg DAILYAC PO Last administered on 12/02/18 08:45; Start 12/02/18 at 07:30 Polyethylene Glycol (miraLAX PACKET) 17 gm DAILY PO Last administered on 12/02/18 08:45; Start 12/02/18 at 09:00 Amitriptyline HCl (Elavil) 250 mg QHS PO Last administered on 12/02/18 21:32; Start 12/01/18 at 22:00 Gabapentin (Neurontin) 800 mg QID PO Last administered on 12/02/18 21:32; Start 12/01/18 at 22:00 Non-Formulary Medication (Naloxone HCl (Narcan)) 4 mg PRN DAILY PRN NS overdose; Start 12/01/18 at 21:30; Stop 12/01/18 at 21:41; Status DC Naloxone HCl (Narcan) 0.4 mg PRN Q2MIN PRN IV SEE COMMENTS; Start 12/01/18 at 21:45 Info (Anti-Coagulation Monitoring By Pharmacy) 1 each PRN DAILY PRN MC SEE COMMENTS Last administered on 12/02/18 15:09; Start 12/02/18 at 10:15 Atorvastatin Calcium (Lipitor) 10 mg QHS PO Last administered on 12/02/18 21:32; Start 12/02/18 at 21:00 Active Scripts Active Narcan (Naloxone HCl) 4 Mg Acme 4 Mg NS PRN DAILY PRN 30 Days Polyethylene Glycol 3350 17 Gm Powd.pack 17 Gm PO DAILY 30 Days FENTANYL 12mcg/hr (Fentanyl) 1 Each Patch.td72 1 Patch TD Q3DAYS 30 Days Pantoprazole Sodium (Pantoprazole Sodium) 40 Mg Tablet.dr 40 Mg PO DAILYAC 30 Days Reported Aspirin 81 Mg Tab.chew 1 Tab PO DAILYWBKFT Amitriptyline Hcl 100 Mg Tablet 2.5 Tab PO QHS Hydrocodone-Apap 10-325 (Hydrocodone Bit/Acetaminophen) 1 Tab Tablet 1 Tab PO PRN Q4HRS PRN Gabapentin 800 Mg Tablet 800 Mg PO QID Vitals/I & O Vital Sign - Last 24 Hours 12/02/18 12/02/18 12/02/18 12/02/18 08:05 11:00 11:12 15:00 Temp 97.5 97.5 97.5 97.5 Pulse 96 95 Resp 18 18 B/P (MAP) 132/60 (84) 137/63 (87) Pulse Ox 96 94 97 O2 Delivery Nasal Cannula Nasal Cannula Nasal Cannula Nasal Cannula O2 Flow Rate 5.0 5.0 5.0 5.0 12/02/18 12/02/18 12/02/18 12/02/18 15:08 19:00 20:13 20:20 Temp 97.6 97.6 Pulse 108 Resp 18 B/P (MAP) 99/49 (66) Pulse Ox 94 93 94 O2 Delivery Nasal Cannula Nasal Cannula Nasal Cannula Nasal Cannula O2 Flow Rate 4.0 5.0 4.0 5.0 12/02/18 12/02/18 12/02/18 12/03/18 21:32 22:44 23:00 03:00 Temp 97.4 98.0 97.4 98.0 Pulse 108 103 Resp 20 22 18 18 B/P (MAP) 113/49 (70) 102/44 (63) Pulse Ox 94 94 90 91 O2 Delivery Nasal Cannula Nasal Cannula Nasal Cannula Nasal Cannula O2 Flow Rate 4.0 4.0 5.0 5.0 Intake and Output 12/02/18 12/02/18 12/03/18 15:00 23:00 07:00 Intake Total 150 ml Output Total 350 ml Balance -200 ml FAROOQ SUÁREZ MD Dec 03, 2018 07:30
[2018-12-03] MEDS: HYDROcodone/APAP 10/325 1 TAB TABLET PO PRN ×4 (07:33→22:34)
[2018-12-03] MEDS: IPRATRPIUM/ALBUTEROL 0.5/2.5MG 3 ML NEBU. NEB SCH ×2 (07:38→21:25)
[2018-12-03] MEDS: POLYETHYLENE GLYCOL 3350 17 GM PACKET. PO SCH (08:27)
[2018-12-03] MEDS: GABAPENTIN 400 MG CAPSULE. PO SCH ×4 (08:28→21:39)
[2018-12-03] MEDS: ASPIRIN CHEWABLE 81 MG TABLET. PO SCH (08:28)
[2018-12-03] MEDS: PANTOPRAZOLE 40 MG TABLET.DR. PO SCH (08:28)
[2018-12-03] MEDS: ANTI-COAG MONITOR BY PHARMACY. MC PRN (08:56)
[2018-12-03] MEDS: fentaNYL PF VIAL 100 MCG/2 ML VIAL IV PRN ×2 (10:36→21:52)
[2018-12-03 10:58] VITALS: BP 115/53
[2018-12-03 15:00] VITALS: BP 128/59
[2018-12-03 19:42] VITALS: BP 124/63
[2018-12-03] MEDS: ATORVASTATIN CALCIUM 10 MG TABLET. PO SCH (21:39)
[2018-12-03] MEDS: AMITRIPTYLINE HCL 25 MG TABLET. PO SCH (21:39)
[2018-12-03 23:50] VITALS: BP 103/59
[2018-12-04 02:46] VITALS: BP 116/58
[2018-12-04] MEDS: HYDROcodone/APAP 10/325 1 TAB TABLET PO PRN ×5 (02:53→21:46)
[2018-12-04 04:30] LABS: BASO % 0 % (0-3); EOS # 0.3 x10^3/uL (0.0-0.7); EOS % 3 % (0-3); HEMOGLOBIN 9.7 g/dL (12.0-15.5); LYMPH # 1.9 x10^3/uL (1.0-4.8); LYMPH % 23 % (24-48); MEAN CORPUSCULAR HEMOGLOBIN 32 pg (25-35); MEAN CORPUSCULAR HGB CONC 34 g/dL (31-37); MEAN CORPUSCULAR VOLUME 94 fL (79-100); MONO # 0.8 x10^3/uL (0.0-1.1); MONO % 10 % (0-9); NEUT # 5.2 x10^3/uL (1.8-7.7); NEUT % 63 % (31-73); PLATELET COUNT 270 x10^3/uL (140-400); RED BLOOD COUNT 3.09 x10^6/uL (3.50-5.40); RED CELL DISTRIBUTION WIDTH 14.3 % (11.5-14.5); WHITE BLOOD COUNT 8.3 x10^3/uL (4.0-11.0)
[2018-12-04 04:31] LABS: ALBUMIN 2.3 g/dL (3.4-5.0); ALBUMIN/GLOBULIN RATIO 0.5 (1.0-1.7); CALCIUM 8.8 mg/dL (8.5-10.1); CREATININE 1.1 mg/dL (0.6-1.0); POTASSIUM 4.6 mmol/L (3.5-5.1); TOTAL BILIRUBIN 0.2 mg/dL (0.2-1.0); TOTAL PROTEIN 6.7 g/dL (6.4-8.2)
--- NOTE | 2018-12-04 06:41 | PDOC ---
PULMONARY PROGRESS NOTES Subjective sob better, no cp, has occ cough, on home 02, is tired Vitals Vital Signs Date Time Temp Pulse Resp B/P (MAP) Pulse Ox O2 Delivery O2 Flow Rate FiO2 12/04/18 04:05 Nasal Cannula 12/04/18 02:46 98.2 102 16 116/58 (77) 93 4.0 98.2 ROS: No Nausea General: Alert HEENT: Other (nc at perrl) Lungs: Other (deminished) Cardiovascular: S1, S2 Abdomen: Soft, Non-tender Neuro Exam: Alert Skin: Warm Labs Laboratory Tests Test 12/03/18 03:30 12/04/18 03:45 White Blood Count 10.1 x10^3/uL (4.0-11.0) 8.3 x10^3/uL (4.0-11.0) Red Blood Count 3.13 x10^6/uL (3.50-5.40) 3.09 x10^6/uL (3.50-5.40) Hemoglobin 9.8 g/dL (12.0-15.5) 9.7 g/dL (12.0-15.5) Hematocrit 29.3 % (36.0-47.0) 29.0 % (36.0-47.0) Mean Corpuscular Volume 94 fL (79-100) 94 fL (79-100) Mean Corpuscular Hemoglobin 31 pg (25-35) 32 pg (25-35) Mean Corpuscular Hemoglobin Concent 34 g/dL (31-37) 34 g/dL (31-37) Red Cell Distribution Width 14.1 % (11.5-14.5) 14.3 % (11.5-14.5) Platelet Count 238 x10^3/uL (140-400) 270 x10^3/uL (140-400) Neutrophils (%) (Auto) 69 % (31-73) 63 % (31-73) Lymphocytes (%) (Auto) 20 % (24-48) 23 % (24-48) Monocytes (%) (Auto) 9 % (0-9) 10 % (0-9) Eosinophils (%) (Auto) 2 % (0-3) 3 % (0-3) Basophils (%) (Auto) 0 % (0-3) 0 % (0-3) Neutrophils # (Auto) 7.0 x10^3/uL (1.8-7.7) 5.2 x10^3/uL (1.8-7.7) Lymphocytes # (Auto) 2.1 x10^3/uL (1.0-4.8) 1.9 x10^3/uL (1.0-4.8) Monocytes # (Auto) 0.9 x10^3/uL (0.0-1.1) 0.8 x10^3/uL (0.0-1.1) Eosinophils # (Auto) 0.2 x10^3/uL (0.0-0.7) 0.3 x10^3/uL (0.0-0.7) Basophils # (Auto) 0.0 x10^3/uL (0.0-0.2) 0.0 x10^3/uL (0.0-0.2) Sodium Level 137 mmol/L (136-145) 136 mmol/L (136-145) Potassium Level 4.1 mmol/L (3.5-5.1) 4.6 mmol/L (3.5-5.1) Chloride Level 99 mmol/L (98-107) 98 mmol/L (98-107) Carbon Dioxide Level 31 mmol/L (21-32) 30 mmol/L (21-32) Anion Gap 7 (6-14) 8 (6-14) Blood Urea Nitrogen 13 mg/dL (7-20) 10 mg/dL (7-20) Creatinine 1.0 mg/dL (0.6-1.0) 1.1 mg/dL (0.6-1.0) Estimated GFR (Cockcroft-Gault) 55.8 50.0 BUN/Creatinine Ratio 13 (6-20) 9 (6-20) Glucose Level 126 mg/dL (70-99) 113 mg/dL (70-99) Calcium Level 8.8 mg/dL (8.5-10.1) 8.8 mg/dL (8.5-10.1) Total Bilirubin 0.2 mg/dL (0.2-1.0) 0.2 mg/dL (0.2-1.0) Aspartate Amino Transf (AST/SGOT) 32 U/L (15-37) 46 U/L (15-37) Alanine Aminotransferase (ALT/SGPT) 18 U/L (14-59) 26 U/L (14-59) Alkaline Phosphatase 396 U/L (46-116) 462 U/L (46-116) Total Protein 6.4 g/dL (6.4-8.2) 6.7 g/dL (6.4-8.2) Albumin 2.3 g/dL (3.4-5.0) 2.3 g/dL (3.4-5.0) Albumin/Globulin Ratio 0.6 (1.0-1.7) 0.5 (1.0-1.7) Laboratory Tests Test 12/04/18 03:45 White Blood Count 8.3 x10^3/uL (4.0-11.0) Red Blood Count 3.09 x10^6/uL (3.50-5.40) Hemoglobin 9.7 g/dL (12.0-15.5) Hematocrit 29.0 % (36.0-47.0) Mean Corpuscular Volume 94 fL (79-100) Mean Corpuscular Hemoglobin 32 pg (25-35) Mean Corpuscular Hemoglobin Concent 34 g/dL (31-37) Red Cell Distribution Width 14.3 % (11.5-14.5) Platelet Count 270 x10^3/uL (140-400) Neutrophils (%) (Auto) 63 % (31-73) Lymphocytes (%) (Auto) 23 % (24-48) Monocytes (%) (Auto) 10 % (0-9) Eosinophils (%) (Auto) 3 % (0-3) Basophils (%) (Auto) 0 % (0-3) Neutrophils # (Auto) 5.2 x10^3/uL (1.8-7.7) Lymphocytes # (Auto) 1.9 x10^3/uL (1.0-4.8) Monocytes # (Auto) 0.8 x10^3/uL (0.0-1.1) Eosinophils # (Auto) 0.3 x10^3/uL (0.0-0.7) Basophils # (Auto) 0.0 x10^3/uL (0.0-0.2) Sodium Level 136 mmol/L (136-145) Potassium Level 4.6 mmol/L (3.5-5.1) Chloride Level 98 mmol/L (98-107) Carbon Dioxide Level 30 mmol/L (21-32) Anion Gap 8 (6-14) Blood Urea Nitrogen 10 mg/dL (7-20) Creatinine 1.1 mg/dL (0.6-1.0) Estimated GFR (Cockcroft-Gault) 50.0 BUN/Creatinine Ratio 9 (6-20) Glucose Level 113 mg/dL (70-99) Calcium Level 8.8 mg/dL (8.5-10.1) Total Bilirubin 0.2 mg/dL (0.2-1.0) Aspartate Amino Transf (AST/SGOT) 46 U/L (15-37) Alanine Aminotransferase (ALT/SGPT) 26 U/L (14-59) Alkaline Phosphatase 462 U/L (46-116) Total Protein 6.7 g/dL (6.4-8.2) Albumin 2.3 g/dL (3.4-5.0) Albumin/Globulin Ratio 0.5 (1.0-1.7) Medications Active Scripts Medications Dose Route/Sig Max Daily Dose Days Date Category Narcan (Naloxone HCl) 4 Mg [place] 4 Mg NS PRN DAILY PRN 30 11/28/18 Rx Polyethylene Glycol 3350 17 Gm Powd.pack 17 Gm PO DAILY 30 11/28/18 Rx FENTANYL 12mcg/hr (Fentanyl) 1 Each Patch.td72 1 Patch TD Q3DAYS 30 11/28/18 Rx Pantoprazole Sodium (Pantoprazole Sodium) 40 Mg Tablet.dr 40 Mg PO DAILYAC 11/28/18 Rx Aspirin 81 Mg Tab.chew 1 Tab PO DAILYWBKFT 11/22/18 Reported Amitriptyline Hcl 100 Mg Tablet 2.5 Tab PO QHS 05/11/18 Reported Hydrocodone-Apap 10-325 (Hydrocodone Bit/Acetaminophen) 1 Tab Tablet 1 Tab PO PRN Q4HRS PRN 05/11/18 Reported Gabapentin 800 Mg Tablet 800 Mg PO QID 05/11/18 Reported Comments echo The left ventricular systolic function is normal and the ejection fraction is within normal range. The Ejection Fraction is 60-65%. There is normal LV segmental wall motion. The right ventricle is mildly to moderately dilated. Doppler and Color Flow revealed moderate aortic regurgitation. (Cannot rule out severe AI based on PHT, consider BRIA) Impression . IMPRESSION: 1. Acute pulmonary embolism with multiple bilateral segmental and subsegmental mismatch defects along with acute extensive deep vein thrombosis. The risk factor is underlying pancreatic cancer, presenting as hypercoagulable state. 2. Acute on chronic hypoxic respiratory failure secondary to acute pulmonary embolism and underlying chronic obstructive pulmonary disease. 3. Recently diagnosed pancreatic cancer, not been on treatment yet. 4. Mildly increased troponin level, suspect secondary to RV ischemia. 5. Hemodynamically stable, does not require TPA. 6. Suspected underlying chronic obstructive pulmonary disease, could be severe. Plan . RECOMMENDATIONS: 1. Continue with present oxygen. 2. echo reviewed, ? severe AI cardiology on case 3. Continue full-dose Lovenox. may change to eliquis 4. oral anticoagulation, eliquis 5. Hematology/Oncology consulted, lovenox or eliquis, pt decided eliquis 6. Initiate pancreatic cancer treatment. 7. The patient will require lifelong anticoagulation due to underlying malignancy. 8. Continue bronchodilators. discussed w pt KYARA BAIN MD Dec 04, 2018 06:41
[2018-12-04 07:00] VITALS: BP 113/56
[2018-12-04] MEDS: IPRATRPIUM/ALBUTEROL 0.5/2.5MG 3 ML NEBU. NEB SCH ×4 (07:37→19:48)
[2018-12-04] MEDS: ANTI-COAG MONITOR BY PHARMACY. MC PRN (08:25)
--- NOTE | 2018-12-04 09:18 | PDOC ---
PROGRESS NOTES History of Present Illness History of Present Illness VTE Prophylaxis Ordered VTE Prophylaxis Devices: Contraindicated VTE Pharmacological Prophylaxi: Yes Assessment/Plan Assessment/Plan IMPRESSION: Multiple bilateral segmental/subsegmental mismatched defects collectively compatible with high probability for pulmonary embolism. Acute on chronic hypoxic respiratory failure secondary to acute pulmonary embolism and underlying chronic obstructive pulmonary disease. Recently diagnosed pancreatic cancer, . increased troponin level, suspect secondary to RV ischemia. Hemodynamically stable, does not require TPA. chronic obstructive pulmonary disease, could be severe Metastatic pancreatic cancer BX POS METASTATIC ADENOCARCINOMA, MODERATELY DIFFERENTIATED. Abdominal Pain Anemia HTN Peripheral neuropathy DM2, bladder prolapse GERD Fibromyalgia Extensive deep venous thrombosis burden involving both lower extremities with complete occlusion of the bilateral superficial femoral veins and popliteal veins. Partially occlusive thrombus within the bilateral posterior tibial veins. The common femoral veins are patent ECHO 12/02 Doppler and Color Flow revealed moderate aortic regurgitation. (Cannot rule out severe AI based on PHT, consider BRIA) plan admit cvc consult pulmonary sq lovenox protocol for PE. ONCOLOGY CONSULT CONSULT CARDIOLOGY HOME MEDS PAIN CONTROL /// ADMIT oral anticoagulation, eliquis 36 MIN PT EXAM, CHART REVIEW, > 50% OF TIME SPENT WITH EXAM, CHART REVIEW, PT CARE COORDINATION Vitals Vitals Vital Signs Date Time Temp Pulse Resp B/P (MAP) Pulse Ox O2 Delivery O2 Flow Rate FiO2 12/04/18 08:42 20 12/04/18 07:39 93 Nasal Cannula 5.0 12/04/18 07:00 98.0 101 113/56 (75) 98.0 Physical Exam General: Alert, Oriented X3, Cooperative, No acute distress Heart: Regular rate (SR/ST), Normal S1, Normal S2, Other (S3/3/6 diastolic murmur to erbs) Lungs: Other (dIminished) Abdomen: Soft, No tenderness Extremities: No cyanosis, Other (trace LE, hot to touch skin to bilateral LE) Skin: No breakdown, No significant lesion Labs LABS Laboratory Tests Test 12/04/18 03:45 White Blood Count 8.3 x10^3/uL (4.0-11.0) Red Blood Count 3.09 x10^6/uL (3.50-5.40) Hemoglobin 9.7 g/dL (12.0-15.5) Hematocrit 29.0 % (36.0-47.0) Mean Corpuscular Volume 94 fL (79-100) Mean Corpuscular Hemoglobin 32 pg (25-35) Mean Corpuscular Hemoglobin Concent 34 g/dL (31-37) Red Cell Distribution Width 14.3 % (11.5-14.5) Platelet Count 270 x10^3/uL (140-400) Neutrophils (%) (Auto) 63 % (31-73) Lymphocytes (%) (Auto) 23 % (24-48) Monocytes (%) (Auto) 10 % (0-9) Eosinophils (%) (Auto) 3 % (0-3) Basophils (%) (Auto) 0 % (0-3) Neutrophils # (Auto) 5.2 x10^3/uL (1.8-7.7) Lymphocytes # (Auto) 1.9 x10^3/uL (1.0-4.8) Monocytes # (Auto) 0.8 x10^3/uL (0.0-1.1) Eosinophils # (Auto) 0.3 x10^3/uL (0.0-0.7) Basophils # (Auto) 0.0 x10^3/uL (0.0-0.2) Sodium Level 136 mmol/L (136-145) Potassium Level 4.6 mmol/L (3.5-5.1) Chloride Level 98 mmol/L (98-107) Carbon Dioxide Level 30 mmol/L (21-32) Anion Gap 8 (6-14) Blood Urea Nitrogen 10 mg/dL (7-20) Creatinine 1.1 mg/dL (0.6-1.0) Estimated GFR (Cockcroft-Gault) 50.0 BUN/Creatinine Ratio 9 (6-20) Glucose Level 113 mg/dL (70-99) Calcium Level 8.8 mg/dL (8.5-10.1) Total Bilirubin 0.2 mg/dL (0.2-1.0) Aspartate Amino Transf (AST/SGOT) 46 U/L (15-37) Alanine Aminotransferase (ALT/SGPT) 26 U/L (14-59) Alkaline Phosphatase 462 U/L (46-116) Total Protein 6.7 g/dL (6.4-8.2) Albumin 2.3 g/dL (3.4-5.0) Albumin/Globulin Ratio 0.5 (1.0-1.7) Assessment and Plan Assessmemt and Plan Problems Medical Problems: (1) Elevated d-dimer Status: Acute (2) Elevated troponin Status: Acute (3) Hypoxia Status: Acute (4) Pancreatic cancer Status: Acute (5) Shortness of breath Status: Acute Patient Stated Goal * return home Rehab Potential to Achieve Goals * Good Learning Preferences * One-on-One Instruction * Demonstration * Discussion Factors Facilitating Goal Achievement * Motivation level * Supportive caregiver * Prior level of function * Cognition * Response to training Problem List (body system elements) * Impaired fnctnl mobility * Heart Rate * Strength * Balance * Respiration/perfusion * Coordination * Knowledge-safe techniques * Knowledge-COPD Management * Pain Clinical Presentation * Evolving Evaluation Complexity Level * Moderate Complexity Pt/caregiver agrees with plan of care/goals * Yes Patient condition at conclusion of therapy * Pt in chair * Call light in reach * Phone in reach * PtIn no apparent distress * Pt denies further needs Communicated Patient Care With (Name, Title) * Neris OT; Iveth RN Goal 1 - Bed Mobility Assistance Required * Independent Goal 1 Assessment * Appropriate - Continue Goal 2 - Transfers Assistance Required * Independent Goal 2 - Transfer Type * Sit to Stand Goal 2 Assessment * Appropriate - Continue Goal 3 - Ambulation Assistance Required * Independent Goal 3 - Ambulation Distance * 100' Goal 3 - Ambulation Device * Roller Walker Goal 3 Assessment * Appropriate - Continue Goal 4 - Stairs Assistance Required * Independent Goal 4 - Number of Stairs * 1 Goal 4 - Device on Stairs * Roller Walker Goal 4 Assessment * Appropriate - Continue Treatment Plan * Therapeutic Exercise * Bed Mobility Training * Transfer training * Gait Training * Dynamic Balance Training Frequency of Treatment Expected * 7 visits/week Duration of Treatment Expected * 2 weeks Discharge Recommendations * Home with Assistance * Home with Home Health Discharge Recommendation - DME * Rolling Walker needed * in order to complete ADLs * and ambulation safely Discharge Recommendation Comments * Will continue to assess for discharge needs Comment Review of Relevant I have reviewed the following items les (where applicable) has been applied. Labs Laboratory Tests Test 12/03/18 03:30 12/04/18 03:45 White Blood Count 10.1 x10^3/uL (4.0-11.0) 8.3 x10^3/uL (4.0-11.0) Red Blood Count 3.13 x10^6/uL (3.50-5.40) 3.09 x10^6/uL (3.50-5.40) Hemoglobin 9.8 g/dL (12.0-15.5) 9.7 g/dL (12.0-15.5) Hematocrit 29.3 % (36.0-47.0) 29.0 % (36.0-47.0) Mean Corpuscular Volume 94 fL (79-100) 94 fL (79-100) Mean Corpuscular Hemoglobin 31 pg (25-35) 32 pg (25-35) Mean Corpuscular Hemoglobin Concent 34 g/dL (31-37) 34 g/dL (31-37) Red Cell Distribution Width 14.1 % (11.5-14.5) 14.3 % (11.5-14.5) Platelet Count 238 x10^3/uL (140-400) 270 x10^3/uL (140-400) Neutrophils (%) (Auto) 69 % (31-73) 63 % (31-73) Lymphocytes (%) (Auto) 20 % (24-48) 23 % (24-48) Monocytes (%) (Auto) 9 % (0-9) 10 % (0-9) Eosinophils (%) (Auto) 2 % (0-3) 3 % (0-3) Basophils (%) (Auto) 0 % (0-3) 0 % (0-3) Neutrophils # (Auto) 7.0 x10^3/uL (1.8-7.7) 5.2 x10^3/uL (1.8-7.7) Lymphocytes # (Auto) 2.1 x10^3/uL (1.0-4.8) 1.9 x10^3/uL (1.0-4.8) Monocytes # (Auto) 0.9 x10^3/uL (0.0-1.1) 0.8 x10^3/uL (0.0-1.1) Eosinophils # (Auto) 0.2 x10^3/uL (0.0-0.7) 0.3 x10^3/uL (0.0-0.7) Basophils # (Auto) 0.0 x10^3/uL (0.0-0.2) 0.0 x10^3/uL (0.0-0.2) Sodium Level 137 mmol/L (136-145) 136 mmol/L (136-145) Potassium Level 4.1 mmol/L (3.5-5.1) 4.6 mmol/L (3.5-5.1) Chloride Level 99 mmol/L (98-107) 98 mmol/L (98-107) Carbon Dioxide Level 31 mmol/L (21-32) 30 mmol/L (21-32) Anion Gap 7 (6-14) 8 (6-14) Blood Urea Nitrogen 13 mg/dL (7-20) 10 mg/dL (7-20) Creatinine 1.0 mg/dL (0.6-1.0) 1.1 mg/dL (0.6-1.0) Estimated GFR (Cockcroft-Gault) 55.8 50.0 BUN/Creatinine Ratio 13 (6-20) 9 (6-20) Glucose Level 126 mg/dL (70-99) 113 mg/dL (70-99) Calcium Level 8.8 mg/dL (8.5-10.1) 8.8 mg/dL (8.5-10.1) Total Bilirubin 0.2 mg/dL (0.2-1.0) 0.2 mg/dL (0.2-1.0) Aspartate Amino Transf (AST/SGOT) 32 U/L (15-37) 46 U/L (15-37) Alanine Aminotransferase (ALT/SGPT) 18 U/L (14-59) 26 U/L (14-59) Alkaline Phosphatase 396 U/L (46-116) 462 U/L (46-116) Total Protein 6.4 g/dL (6.4-8.2) 6.7 g/dL (6.4-8.2) Albumin 2.3 g/dL (3.4-5.0) 2.3 g/dL (3.4-5.0) Albumin/Globulin Ratio 0.6 (1.0-1.7) 0.5 (1.0-1.7) Laboratory Tests Test 12/04/18 03:45 White Blood Count 8.3 x10^3/uL (4.0-11.0) Red Blood Count 3.09 x10^6/uL (3.50-5.40) Hemoglobin 9.7 g/dL (12.0-15.5) Hematocrit 29.0 % (36.0-47.0) Mean Corpuscular Volume 94 fL (79-100) Mean Corpuscular Hemoglobin 32 pg (25-35) Mean Corpuscular Hemoglobin Concent 34 g/dL (31-37) Red Cell Distribution Width 14.3 % (11.5-14.5) Platelet Count 270 x10^3/uL (140-400) Neutrophils (%) (Auto) 63 % (31-73) Lymphocytes (%) (Auto) 23 % (24-48) Monocytes (%) (Auto) 10 % (0-9) Eosinophils (%) (Auto) 3 % (0-3) Basophils (%) (Auto) 0 % (0-3) Neutrophils # (Auto) 5.2 x10^3/uL (1.8-7.7) Lymphocytes # (Auto) 1.9 x10^3/uL (1.0-4.8) Monocytes # (Auto) 0.8 x10^3/uL (0.0-1.1) Eosinophils # (Auto) 0.3 x10^3/uL (0.0-0.7) Basophils # (Auto) 0.0 x10^3/uL (0.0-0.2) Sodium Level 136 mmol/L (136-145) Potassium Level 4.6 mmol/L (3.5-5.1) Chloride Level 98 mmol/L (98-107) Carbon Dioxide Level 30 mmol/L (21-32) Anion Gap 8 (6-14) Blood Urea Nitrogen 10 mg/dL (7-20) Creatinine 1.1 mg/dL (0.6-1.0) Estimated GFR (Cockcroft-Gault) 50.0 BUN/Creatinine Ratio 9 (6-20) Glucose Level 113 mg/dL (70-99) Calcium Level 8.8 mg/dL (8.5-10.1) Total Bilirubin 0.2 mg/dL (0.2-1.0) Aspartate Amino Transf (AST/SGOT) 46 U/L (15-37) Alanine Aminotransferase (ALT/SGPT) 26 U/L (14-59) Alkaline Phosphatase 462 U/L (46-116) Total Protein 6.7 g/dL (6.4-8.2) Albumin 2.3 g/dL (3.4-5.0) Albumin/Globulin Ratio 0.5 (1.0-1.7) Microbiology 12/01/18 Blood Culture - Preliminary, Resulted NO GROWTH AFTER 2 DAYS Medications Current Medications Albuterol/ Ipratropium (Duoneb) 3 ml 1X ONCE NEB Last administered on 12/01/18at 19:06; Start 12/01/18 at 19:00; Stop 12/01/18 at 19:01; Status DC Methylprednisolone Sodium Succinate (SOLU-Medrol 125MG VIAL) 125 mg 1X ONCE IV Last administered on 12/01/18at 19:17; Start 12/01/18 at 19:00; Stop 12/01/18 at 19:01; Status DC Aspirin (Becca Aspirin) 325 mg 1X ONCE PO Last administered on 12/01/18at 19:58; Start 12/01/18 at 20:00; Stop 12/01/18 at 20:01; Status DC Bumetanide (Bumex) 0.5 mg 1X ONCE IV Last administered on 12/01/18at 19:58; Start 12/01/18 at 20:00; Stop 12/01/18 at 20:01; Status DC Enoxaparin Sodium (Lovenox 80mg Syringe) 70 mg 1X ONCE SQ Last administered on 12/01/18at 20:18; Start 12/01/18 at 20:45; Stop 12/01/18 at 20:46; Status DC Ondansetron HCl (Zofran) 4 mg PRN Q8HRS PRN IV NAUSEA/VOMITING; Start 12/01/18 at 20:30; Stop 12/02/18 at 20:29; Status DC Fentanyl Citrate (Fentanyl 2ml Vial) 50 mcg PRN Q4HRS PRN IV PAIN Last administered on 12/03/18at 21:52; Start 12/01/18 at 20:30 Acetaminophen (Tylenol) 650 mg PRN Q4HRS PRN PO FEVER; Start 12/01/18 at 20:30; Stop 12/02/18 at 20:29; Status DC Albuterol/ Ipratropium (Duoneb) 3 ml RTQID NEB Last administered on 12/03/18at 07:38; Start 12/02/18 at 08:00; Stop 12/03/18 at 07:59; Status DC Enoxaparin Sodium (Lovenox 80mg Syringe) 70 mg Q12HR SQ Last administered on 12/03/18 21:43; Start 12/02/18 at 09:00 Aspirin (Children'S Aspirin) 81 mg DAILYWBKFT PO Last administered on 12/03/18 08:29; Start 12/02/18 at 08:00 Fentanyl (Duragesic 12mcg/ Hr Patch) 1 patch Q3DAYS TD Last administered on 12/02/18 12:53; Start 12/02/18 at 09:00 Acetaminophen/ Hydrocodone Bitart (Lortab 10/325) 1 tab PRN Q4HRS PRN PO PAIN Last administered on 12/04/18 08:42; Start 12/01/18 at 21:30 Pantoprazole Sodium (Protonix) 40 mg DAILYAC PO Last administered on 12/03/18 08:29; Start 12/02/18 at 07:30 Polyethylene Glycol (miraLAX PACKET) 17 gm DAILY PO Last administered on 12/03/18 08:29; Start 12/02/18 at 09:00 Amitriptyline HCl (Elavil) 250 mg QHS PO Last administered on 12/03/18 21:43; Start 12/01/18 at 22:00 Gabapentin (Neurontin) 800 mg QID PO Last administered on 12/03/18 21:43; Start 12/01/18 at 22:00 Non-Formulary Medication (Naloxone HCl (Narcan)) 4 mg PRN DAILY PRN NS overdose; Start 12/01/18 at 21:30; Stop 12/01/18 at 21:41; Status DC Naloxone HCl (Narcan) 0.4 mg PRN Q2MIN PRN IV SEE COMMENTS; Start 12/01/18 at 21:45 Info (Anti-Coagulation Monitoring By Pharmacy) 1 each PRN DAILY PRN MC SEE COMMENTS Last administered on 12/04/18 08:25; Start 12/02/18 at 10:15 Atorvastatin Calcium (Lipitor) 10 mg QHS PO Last administered on 12/03/18 21:43; Start 12/02/18 at 21:00 Albuterol/ Ipratropium (Duoneb) 3 ml RTQID NEB Last administered on 12/04/18at 07:37; Start 12/04/18 at 08:00 Active Scripts Active Narcan (Naloxone HCl) 4 Mg [place] 4 Mg NS PRN DAILY PRN 30 Days Polyethylene Glycol 3350 17 Gm Powd.pack 17 Gm PO DAILY 30 Days FENTANYL 12mcg/hr (Fentanyl) 1 Each Patch.td72 1 Patch TD Q3DAYS 30 Days Pantoprazole Sodium (Pantoprazole Sodium) 40 Mg Tablet.dr 40 Mg PO DAILYAC 30 Days Reported Aspirin 81 Mg Tab.chew 1 Tab PO DAILYWBKFT Amitriptyline Hcl 100 Mg Tablet 2.5 Tab PO QHS Hydrocodone-Apap 10-325 (Hydrocodone Bit/Acetaminophen) 1 Tab Tablet 1 Tab PO PRN Q4HRS PRN Gabapentin 800 Mg Tablet 800 Mg PO QID Vitals/I & O Vital Sign - Last 24 Hours 12/03/18 12/03/18 12/03/18 12/03/18 10:36 10:58 11:23 12:58 Temp 97.9 97.9 Pulse 105 Resp 19 B/P (MAP) 115/53 (73) Pulse Ox 91 92 92 95 O2 Delivery Nasal Cannula Nasal Cannula Nasal Cannula Nasal Cannula O2 Flow Rate 4.0 4.0 4.0 4.0 12/03/18 12/03/18 12/03/18 12/03/18 14:09 15:00 15:43 17:22 Temp 98.0 98.0 Pulse 102 Resp 20 16 B/P (MAP) 128/59 (82) Pulse Ox 95 97 95 95 O2 Delivery Nasal Cannula Nasal Cannula Nasal Cannula Nasal Cannula O2 Flow Rate 4.0 4.0 4.0 5.0 12/03/18 12/03/18 12/03/18 12/03/18 18:32 19:42 20:00 21:26 Temp 97.5 97.5 Pulse 109 Resp 16 B/P (MAP) 124/63 (83) Pulse Ox 95 96 93 O2 Delivery Nasal Cannula Nasal Cannula Nasal Cannula Nasal Cannula O2 Flow Rate 5.0 4.0 5.0 5.0 12/03/18 12/03/18 12/03/18 12/03/18 21:52 21:53 22:34 22:39 O2 Delivery Nasal Cannula Nasal Cannula Nasal Cannula Nasal Cannula O2 Flow Rate 5.0 5.0 5.0 12/03/18 12/04/18 12/04/18 12/04/18 23:50 01:37 02:46 02:53 Temp 98.9 98.2 98.9 98.2 Pulse 103 102 Resp 16 16 B/P (MAP) 103/59 (74) 116/58 (77) Pulse Ox 96 93 O2 Delivery Nasal Cannula Nasal Cannula Nasal Cannula Nasal Cannula O2 Flow Rate 4.0 4.0 12/04/18 12/04/18 12/04/18 12/04/18 04:05 07:00 07:39 08:42 Temp 98.0 98.0 Pulse 101 Resp 16 20 B/P (MAP) 113/56 (75) Pulse Ox 91 93 O2 Delivery Nasal Cannula Nasal Cannula Nasal Cannula O2 Flow Rate 5.0 5.0 Intake and Output 12/03/18 12/03/18 12/04/18 14:59 22:59 06:59 Intake Total 240 ml 800 ml Output Total 450 ml Balance -450 ml 240 ml 800 ml FAROOQ SUÁREZ MD Dec 04, 2018 09:18
[2018-12-04] MEDS: ASPIRIN CHEWABLE 81 MG TABLET. PO SCH (10:01)
[2018-12-04] MEDS: GABAPENTIN 400 MG CAPSULE. PO SCH ×4 (10:01→21:42)
[2018-12-04] MEDS: PANTOPRAZOLE 40 MG TABLET.DR. PO SCH (10:01)
[2018-12-04] MEDS: POLYETHYLENE GLYCOL 3350 17 GM PACKET. PO SCH (10:01)
[2018-12-04 11:00] VITALS: BP 152/65
[2018-12-04 14:46] VITALS: BP 121/59
[2018-12-04 19:15] VITALS: BP 130/53
[2018-12-04] MEDS: ATORVASTATIN CALCIUM 10 MG TABLET. PO SCH (21:42)
[2018-12-04] MEDS: AMITRIPTYLINE HCL 25 MG TABLET. PO SCH (21:43)
[2018-12-04] MEDS: APIXABAN 5 MG TABLET. PO SCH (21:44)
[2018-12-04 22:45] VITALS: BP 148/60
[2018-12-05 03:10] VITALS: BP 125/57
[2018-12-05 07:00] VITALS: BP 137/64
[2018-12-05] MEDS: IPRATRPIUM/ALBUTEROL 0.5/2.5MG 3 ML NEBU. NEB SCH ×4 (07:27→19:41)
[2018-12-05] MEDS: PANTOPRAZOLE 40 MG TABLET.DR. PO SCH (07:58)
[2018-12-05] MEDS: HYDROcodone/APAP 10/325 1 TAB TABLET PO PRN ×4 (07:58→20:43)
[2018-12-05] MEDS: GABAPENTIN 400 MG CAPSULE. PO SCH ×4 (08:36→20:43)
[2018-12-05] MEDS: POLYETHYLENE GLYCOL 3350 17 GM PACKET. PO SCH (08:36)
[2018-12-05] MEDS: fentaNYL 12MCG/HR PATCH 1 PATCH PATCH.TD72 TD SCH (08:37)
[2018-12-05] MEDS: ASPIRIN CHEWABLE 81 MG TABLET. PO SCH (08:37)
[2018-12-05] MEDS: APIXABAN 5 MG TABLET. PO SCH ×2 (08:37→20:43)
--- NOTE | 2018-12-05 09:39 | PDOC ---
SUBJECTIVE Subjective S: Breathing still difficult, feels too weak to walk O: Physical exam: Gen.: Elderly female on 5 L oxygen, resting in bed Extremities: Bilateral trace pitting edema, improved per her report since admit Skin: Warm and dry Psychiatric: Pleasant mood and affect Labs: CEA of 17 and CA-19-9 of [id number] Rads: Prior scan showed evidence of colitis, bilateral liver metastasis, as well as recent scan showed bilateral lower extremity DVT and high probability VQ scan Assessment and Plan: 63-year-old female with metastatic pancreas cancer to the liver, bilateral lower extremity DVT, PE, and history of ulcerative colitis Lower extremity DVT: Symptoms appear to be improving, she continues anticoagulation On aspirin: We'll DC this as i do not believe she needs this PE: She will continue apixaban 10 mg by mouth twice a day �7 days and then can transition to 5 mg by mouth twice a day indefinitely Metastatic pancreas cancer: We'll plan palliative gemcitabine as soon as she has some improvement post clot, we'll order port Deconditioned: Recommend therapy and short-term rehabilitation or custodial facility as needed, would like to see her walking prior to starting palliative chemotherapy Thank you kindly and please do not hesitate to call with questions. OBJECTIVE Vital Signs Vital Signs Date Time Temp Pulse Resp B/P (MAP) Pulse Ox O2 Delivery O2 Flow Rate FiO2 12/05/18 08:39 95 Nasal Cannula 2.0 12/05/18 08:10 Nasal Cannula 5.0 12/05/18 07:27 92 Nasal Cannula 5.0 12/05/18 07:00 98.4 101 16 137/64 (88) 90 Nasal Cannula 5.0 98.4 12/05/18 03:10 97.7 94 22 125/57 (79) 97 Nasal Cannula 5.0 97.7 12/04/18 23:12 20 95 Nasal Cannula 5.0 12/04/18 22:45 98.7 115 22 148/60 (89) 92 Nasal Cannula 5.0 98.7 12/04/18 21:47 22 95 Nasal Cannula 5.0 12/04/18 20:20 Nasal Cannula 5.0 12/04/18 19:48 95 Nasal Cannula 5.0 12/04/18 19:15 98.8 112 20 130/53 (78) 99 Nasal Cannula 5.0 98.8 12/04/18 18:13 93 Nasal Cannula 5.0 12/04/18 17:03 20 93 Nasal Cannula 5.0 12/04/18 16:19 93 Nasal Cannula 5.0 12/04/18 14:46 98.0 98 18 121/59 (79) 98 5.0 98.0 12/04/18 14:40 93 Nasal Cannula 5.0 12/04/18 12:55 20 93 Nasal Cannula 5.0 12/04/18 11:43 93 Nasal Cannula 5.0 12/04/18 11:00 98.0 108 20 152/65 (94) 94 Nasal Cannula 5.0 98.0 12/04/18 10:02 93 Nasal Cannula 5.0 I & O Intake and Output 12/05/18 07:00 Intake Total 400 ml Output Total 500 ml Balance -100 ml Intake Oral 400 ml Output Urine Total 500 ml # Voids 1 RANDALL GARCIA MD Dec 05, 2018 09:39
[2018-12-05] MEDS: ANTI-COAG MONITOR BY PHARMACY. MC PRN (10:22)
[2018-12-05 11:00] VITALS: BP 100/58
--- NOTE | 2018-12-05 11:14 | PDOC ---
PROGRESS NOTES History of Present Illness History of Present Illness VTE Prophylaxis Ordered VTE Prophylaxis Devices: Contraindicated VTE Pharmacological Prophylaxi: Yes Assessment/Plan Assessment/Plan IMPRESSION: Multiple bilateral segmental/subsegmental mismatched defects collectively compatible with high probability for pulmonary embolism. Acute on chronic hypoxic respiratory failure secondary to acute pulmonary embolism and underlying chronic obstructive pulmonary disease. Recently diagnosed pancreatic cancer, . increased troponin level, suspect secondary to RV ischemia. Hemodynamically stable, does not require TPA. chronic obstructive pulmonary disease, could be severe Metastatic pancreatic cancer BX POS METASTATIC ADENOCARCINOMA, MODERATELY DIFFERENTIATED. Abdominal Pain Anemia HTN Peripheral neuropathy DM2, bladder prolapse GERD Fibromyalgia Extensive deep venous thrombosis burden involving both lower extremities with complete occlusion of the bilateral superficial femoral veins and popliteal veins. Partially occlusive thrombus within the bilateral posterior tibial veins. The common femoral veins are patent ECHO 12/02 Doppler and Color Flow revealed moderate aortic regurgitation. (Cannot rule out severe AI based on PHT, consider BRIA) plan admit cvc consult pulmonary sq lovenox protocol for PE. now on eliquis ONCOLOGY CONSULT CONSULT CARDIOLOGY echo HOME MEDS PAIN CONTROL /// ADMIT oral anticoagulation, eliquis 6 min walk to assess home O needs Doppler and Color Flow revealed moderate aortic regurgitation. (Cannot rule out severe AI based on PHT, consider BRIA) 36 MIN PT EXAM, CHART REVIEW, > 50% OF TIME SPENT WITH EXAM, CHART REVIEW, PT CARE COORDINATION Vitals Vitals Vital Signs Date Time Temp Pulse Resp B/P (MAP) Pulse Ox O2 Delivery O2 Flow Rate FiO2 12/05/18 08:39 95 Nasal Cannula 2.0 12/05/18 07:00 98.4 101 16 137/64 (88) 98.4 Physical Exam General: Alert, Oriented X3, Cooperative, No acute distress Heart: Regular rate (SR/ST), Normal S1, Normal S2, Other (S3/3/6 diastolic murmur to erbs) Lungs: Other (dIminished) Abdomen: Soft, No tenderness Extremities: No cyanosis, Other (trace LE, hot to touch skin to bilateral LE) Skin: No breakdown, No significant lesion Labs LABS Tricuspid Valve TR P. Velocity 337cm/s RAP ESTIMATE 8mmHg TR Peak Gr. 45mmHg RVSP 53mmHg LEFT VENTRICLE The left ventricle is normal size. Proximal septal thickening is noted. The left ventricular systolic function is normal and the ejection fraction is within normal range. The Ejection Fraction is 60-65%. There is normal LV segmental wall motion. Transmitral Doppler flow pattern is Grade I-abnormal relaxation pattern. RIGHT VENTRICLE The right ventricle is mildly to moderately dilated. There is normal right ventricular wall thickness. The right ventricular systolic function is normal. ATRIA The left atrium size is normal. The right atrium is mildly dilated. The interatrial septum is intact with no evidence for an atrial septal defect or patent foramen ovale as noted on 2-D or Doppler imaging. AORTIC VALVE The aortic valve is trileaflet. The aortic valve is mildly calcified. Doppler and Color Flow revealed moderate aortic regurgitation. There is no significant aortic valvular stenosis. There is no aortic valvular vegetation. MITRAL VALVE The mitral valve is normal in structure and function. There is no evidence of mitral valve prolapse. There is no mitral valve stenosis. Doppler and Color-flow revealed trace mitral regurgitation. TRICUSPID VALVE The tricuspid valve is normal in structure and function. Doppler and Color Flow revealed mild to moderate tricuspid regurgitation. There is moderate pulmonary hypertension. The PA pressure was estimated at 53 mmHg. There is no tricuspid valve prolapse or vegetation. There is no tricuspid valve stenosis. PULMONIC VALVE Doppler and Color Flow revealed mild pulmonic valvular regurgitation. There is no pulmonic valvular stenosis. GREAT VESSELS The aortic root is normal in size. The ascending aorta is normal in size. The IVC is dilated and collapses <50% with inspiration. PERICARDIAL EFFUSION There is no evidence of significant pericardial effusion. Critical Notification Critical Value: No <Conclusion> The left ventricular systolic function is normal and the ejection fraction is within normal range. The Ejection Fraction is 60-65%. There is normal LV segmental wall motion. The right ventricle is mildly to moderately dilated. Doppler and Color Flow revealed moderate aortic regurgitation. (Cannot rule out severe AI based on PHT, consider BRIA) Signed by : Lang Scruggs, Electronically Approved : 12/02/2018 11:14:23 Assessment and Plan Assessmemt and Plan Problems Medical Problems: (1) Elevated d-dimer Status: Acute (2) Elevated troponin Status: Acute (3) Hypoxia Status: Acute (4) Pancreatic cancer Status: Acute (5) Shortness of breath Status: Acute * Independent Goal 1 Assessment * Appropriate - Continue Goal 2 - Transfers Assistance Required * Independent Goal 2 - Transfer Type * Sit to Stand Goal 2 Assessment * Appropriate - Continue Goal 3 - Ambulation Assistance Required * Independent Goal 3 - Ambulation Distance * 100' Goal 3 - Ambulation Device * Roller Walker Goal 3 Assessment * Appropriate - Continue Goal 4 - Stairs Assistance Required * Independent Goal 4 - Number of Stairs * 1 Goal 4 - Device on Stairs * Roller Walker Goal 4 Assessment * Appropriate - Continue Treatment Plan * Therapeutic Exercise * Bed Mobility Training * Transfer training * Gait Training * Dynamic Balance Training Frequency of Treatment Expected * 7 visits/week Duration of Treatment Expected * 2 weeks Discharge Recommendations * Home with Assistance * Home with Home Health Discharge Recommendation - DME * Rolling Walker needed * in order to complete ADLs * and ambulation safely Discharge Recommendation Comments * Will continue to assess for discharge needs Comment Review of Relevant I have reviewed the following items les (where applicable) has been applied. Labs Laboratory Tests Test 12/04/18 03:45 White Blood Count 8.3 x10^3/uL (4.0-11.0) Red Blood Count 3.09 x10^6/uL (3.50-5.40) Hemoglobin 9.7 g/dL (12.0-15.5) Hematocrit 29.0 % (36.0-47.0) Mean Corpuscular Volume 94 fL (79-100) Mean Corpuscular Hemoglobin 32 pg (25-35) Mean Corpuscular Hemoglobin Concent 34 g/dL (31-37) Red Cell Distribution Width 14.3 % (11.5-14.5) Platelet Count 270 x10^3/uL (140-400) Neutrophils (%) (Auto) 63 % (31-73) Lymphocytes (%) (Auto) 23 % (24-48) Monocytes (%) (Auto) 10 % (0-9) Eosinophils (%) (Auto) 3 % (0-3) Basophils (%) (Auto) 0 % (0-3) Neutrophils # (Auto) 5.2 x10^3/uL (1.8-7.7) Lymphocytes # (Auto) 1.9 x10^3/uL (1.0-4.8) Monocytes # (Auto) 0.8 x10^3/uL (0.0-1.1) Eosinophils # (Auto) 0.3 x10^3/uL (0.0-0.7) Basophils # (Auto) 0.0 x10^3/uL (0.0-0.2) Sodium Level 136 mmol/L (136-145) Potassium Level 4.6 mmol/L (3.5-5.1) Chloride Level 98 mmol/L (98-107) Carbon Dioxide Level 30 mmol/L (21-32) Anion Gap 8 (6-14) Blood Urea Nitrogen 10 mg/dL (7-20) Creatinine 1.1 mg/dL (0.6-1.0) Estimated GFR (Cockcroft-Gault) 50.0 BUN/Creatinine Ratio 9 (6-20) Glucose Level 113 mg/dL (70-99) Calcium Level 8.8 mg/dL (8.5-10.1) Total Bilirubin 0.2 mg/dL (0.2-1.0) Aspartate Amino Transf (AST/SGOT) 46 U/L (15-37) Alanine Aminotransferase (ALT/SGPT) 26 U/L (14-59) Alkaline Phosphatase 462 U/L (46-116) Total Protein 6.7 g/dL (6.4-8.2) Albumin 2.3 g/dL (3.4-5.0) Albumin/Globulin Ratio 0.5 (1.0-1.7) Microbiology 12/01/18 Blood Culture - Preliminary, Resulted NO GROWTH AFTER 3 DAYS Medications Current Medications Albuterol/ Ipratropium (Duoneb) 3 ml 1X ONCE NEB Last administered on 12/01/18at 19:06; Start 12/01/18 at 19:00; Stop 12/01/18 at 19:01; Status DC Methylprednisolone Sodium Succinate (SOLU-Medrol 125MG VIAL) 125 mg 1X ONCE IV Last administered on 12/01/18 19:17; Start 12/01/18 at 19:00; Stop 12/01/18 at 19:01; Status DC Aspirin (Becca Aspirin) 325 mg 1X ONCE PO Last administered on 12/01/18 19:58; Start 12/01/18 at 20:00; Stop 12/01/18 at 20:01; Status DC Bumetanide (Bumex) 0.5 mg 1X ONCE IV Last administered on 12/01/18 19:58; Start 12/01/18 at 20:00; Stop 12/01/18 at 20:01; Status DC Enoxaparin Sodium (Lovenox 80mg Syringe) 70 mg 1X ONCE SQ Last administered on 12/01/18at 20:18; Start 12/01/18 at 20:45; Stop 12/01/18 at 20:46; Status DC Ondansetron HCl (Zofran) 4 mg PRN Q8HRS PRN IV NAUSEA/VOMITING; Start 12/01/18 at 20:30; Stop 12/02/18 at 20:29; Status DC Fentanyl Citrate (Fentanyl 2ml Vial) 50 mcg PRN Q4HRS PRN IV PAIN Last administered on 12/03/18 21:52; Start 12/01/18 at 20:30 Acetaminophen (Tylenol) 650 mg PRN Q4HRS PRN PO FEVER; Start 12/01/18 at 20:30; Stop 12/02/18 at 20:29; Status DC Albuterol/ Ipratropium (Duoneb) 3 ml RTQID NEB Last administered on 12/03/18 07:38; Start 12/02/18 at 08:00; Stop 12/03/18 at 07:59; Status DC Enoxaparin Sodium (Lovenox 80mg Syringe) 70 mg Q12HR SQ Last administered on 12/04/18 10:02; Start 12/02/18 at 09:00; Stop 12/04/18 at 14:51; Status DC Aspirin (Children'S Aspirin) 81 mg DAILYWBKFT PO Last administered on 12/05/18 08:39; Start 12/02/18 at 08:00; Stop 12/05/18 at 09:41; Status DC Fentanyl (Duragesic 12mcg/ Hr Patch) 1 patch Q3DAYS TD Last administered on 12/05/18 08:39; Start 12/02/18 at 09:00 Acetaminophen/ Hydrocodone Bitart (Lortab 10/325) 1 tab PRN Q4HRS PRN PO PAIN L ast administered on 12/05/18 07:58; Start 12/01/18 at 21:30 Pantoprazole Sodium (Protonix) 40 mg DAILYAC PO Last administered on 12/05/18 07:58; Start 12/02/18 at 07:30 Polyethylene Glycol (miraLAX PACKET) 17 gm DAILY PO Last administered on 12/05/18 08:39; Start 12/02/18 at 09:00 Amitriptyline HCl (Elavil) 250 mg QHS PO Last administered on 12/04/18 21:47; Start 12/01/18 at 22:00 Gabapentin (Neurontin) 800 mg QID PO Last administered on 12/05/18 08:39; Start 12/01/18 at 22:00 Non-Formulary Medication (Naloxone HCl (Narcan)) 4 mg PRN DAILY PRN NS overdose; Start 12/01/18 at 21:30; Stop 12/01/18 at 21:41; Status DC Naloxone HCl (Narcan) 0.4 mg PRN Q2MIN PRN IV SEE COMMENTS; Start 12/01/18 at 21:45 Info (Anti-Coagulation Monitoring By Pharmacy) 1 each PRN DAILY PRN MC SEE COMMENTS Last administered on 12/05/18 10:24; Start 12/02/18 at 10:15 Atorvastatin Calcium (Lipitor) 10 mg QHS PO Last administered on 12/04/18 21:47; Start 12/02/18 at 21:00 Albuterol/ Ipratropium (Duoneb) 3 ml RTQID NEB Last administered on 12/05/18 07:27; Start 12/04/18 at 08:00 Apixaban (Eliquis) 10 mg BID PO Last administered on 12/05/18 08:39; Start 12/04/18 at 21:00; Stop 12/15/18 at 21:00 Active Scripts Active Narcan (Naloxone HCl) 4 Mg [place] 4 Mg NS PRN DAILY PRN 30 Days Polyethylene Glycol 3350 17 Gm Powd.pack 17 Gm PO DAILY 30 Days FENTANYL 12mcg/hr (Fentanyl) 1 Each Patch.td72 1 Patch TD Q3DAYS 30 Days Pantoprazole Sodium (Pantoprazole Sodium) 40 Mg Tablet.dr 40 Mg PO DAILYAC 30 Days Reported Aspirin 81 Mg Tab.chew 1 Tab PO DAILYWBKFT Amitriptyline Hcl 100 Mg Tablet 2.5 Tab PO QHS Hydrocodone-Apap 10-325 (Hydrocodone Bit/Acetaminophen) 1 Tab Tablet 1 Tab PO PRN Q4HRS PRN Gabapentin 800 Mg Tablet 800 Mg PO QID Vitals/I & O Vital Sign - Last 24 Hours 12/04/18 12/04/18 12/04/18 12/04/18 11:43 12:55 14:40 14:46 Temp 98.0 98.0 Pulse 98 Resp 18 B/P (MAP) 121/59 (79) Pulse Ox 93 93 93 98 O2 Delivery Nasal Cannula Nasal Cannula Nasal Cannula O2 Flow Rate 5.0 5.0 5.0 5.0 12/04/18 12/04/18 12/04/18 12/04/18 16:19 17:03 18:13 19:15 Temp 98.8 98.8 Pulse 112 Resp 20 20 B/P (MAP) 130/53 (78) Pulse Ox 93 93 93 99 O2 Delivery Nasal Cannula Nasal Cannula Nasal Cannula Nasal Cannula O2 Flow Rate 5.0 5.0 5.0 5.0 12/04/18 12/04/18 12/04/18 12/04/18 19:48 20:20 21:47 22:45 Temp 98.7 98.7 Pulse 115 Resp 22 B/P (MAP) 148/60 (89) Pulse Ox 95 95 92 O2 Delivery Nasal Cannula Nasal Cannula Nasal Cannula Nasal Cannula O2 Flow Rate 5.0 5.0 5.0 5.0 12/04/18 12/05/18 12/05/18 12/05/18 23:12 03:10 07:00 07:27 Temp 97.7 98.4 97.7 98.4 Pulse 94 101 Resp 20 16 B/P (MAP) 125/57 (79) 137/64 (88) Pulse Ox 95 97 90 92 O2 Delivery Nasal Cannula Nasal Cannula Nasal Cannula Nasal Cannula O2 Flow Rate 5.0 5.0 5.0 5.0 12/05/18 12/05/18 08:10 08:39 Pulse Ox 95 O2 Delivery Nasal Cannula Nasal Cannula O2 Flow Rate 5.0 2.0 Intake and Output 12/04/18 12/04/18 12/05/18 14:59 22:59 06:59 Intake Total 400 ml Output Total 300 ml 200 ml Balance -300 ml -200 ml 400 ml FAROOQ SUÁREZ MD Dec 05, 2018 11:14
--- NOTE | 2018-12-05 12:02 | PDOC ---
PULMONARY PROGRESS NOTES Subjective sob better, no cp, has occ cough, on home 02, is tired Vitals Vital Signs Date Time Temp Pulse Resp B/P (MAP) Pulse Ox O2 Delivery O2 Flow Rate FiO2 12/05/18 11:41 93 Nasal Cannula 5.0 12/05/18 11:00 98.3 94 16 100/58 (72) 98.3 ROS: No Nausea General: Alert, No acute distress HEENT: Other (nc at perrl) Lungs: Other (dIminished) Cardiovascular: S1, S2 Abdomen: Soft, Non-tender Neuro Exam: Alert Skin: Warm Labs Laboratory Tests Test 12/04/18 03:45 White Blood Count 8.3 x10^3/uL (4.0-11.0) Red Blood Count 3.09 x10^6/uL (3.50-5.40) Hemoglobin 9.7 g/dL (12.0-15.5) Hematocrit 29.0 % (36.0-47.0) Mean Corpuscular Volume 94 fL (79-100) Mean Corpuscular Hemoglobin 32 pg (25-35) Mean Corpuscular Hemoglobin Concent 34 g/dL (31-37) Red Cell Distribution Width 14.3 % (11.5-14.5) Platelet Count 270 x10^3/uL (140-400) Neutrophils (%) (Auto) 63 % (31-73) Lymphocytes (%) (Auto) 23 % (24-48) Monocytes (%) (Auto) 10 % (0-9) Eosinophils (%) (Auto) 3 % (0-3) Basophils (%) (Auto) 0 % (0-3) Neutrophils # (Auto) 5.2 x10^3/uL (1.8-7.7) Lymphocytes # (Auto) 1.9 x10^3/uL (1.0-4.8) Monocytes # (Auto) 0.8 x10^3/uL (0.0-1.1) Eosinophils # (Auto) 0.3 x10^3/uL (0.0-0.7) Basophils # (Auto) 0.0 x10^3/uL (0.0-0.2) Sodium Level 136 mmol/L (136-145) Potassium Level 4.6 mmol/L (3.5-5.1) Chloride Level 98 mmol/L (98-107) Carbon Dioxide Level 30 mmol/L (21-32) Anion Gap 8 (6-14) Blood Urea Nitrogen 10 mg/dL (7-20) Creatinine 1.1 mg/dL (0.6-1.0) Estimated GFR (Cockcroft-Gault) 50.0 BUN/Creatinine Ratio 9 (6-20) Glucose Level 113 mg/dL (70-99) Calcium Level 8.8 mg/dL (8.5-10.1) Total Bilirubin 0.2 mg/dL (0.2-1.0) Aspartate Amino Transf (AST/SGOT) 46 U/L (15-37) Alanine Aminotransferase (ALT/SGPT) 26 U/L (14-59) Alkaline Phosphatase 462 U/L (46-116) Total Protein 6.7 g/dL (6.4-8.2) Albumin 2.3 g/dL (3.4-5.0) Albumin/Globulin Ratio 0.5 (1.0-1.7) Medications Active Scripts Medications Dose Route/Sig Max Daily Dose Days Date Category Narcan (Naloxone HCl) 4 Mg [place] 4 Mg NS PRN DAILY PRN 30 11/28/18 Rx Polyethylene Glycol 3350 17 Gm Powd.pack 17 Gm PO DAILY 30 11/28/18 Rx FENTANYL 12mcg/hr (Fentanyl) 1 Each Patch.td72 1 Patch TD Q3DAYS 30 11/28/18 Rx Pantoprazole Sodium (Pantoprazole Sodium) 40 Mg Tablet.dr 40 Mg PO DAILYAC 30 11/28/18 Rx Aspirin 81 Mg Tab.chew 1 Tab PO DAILYWBKFT 11/22/18 Reported Amitriptyline Hcl 100 Mg Tablet 2.5 Tab PO QHS 05/11/18 Reported Hydrocodone-Apap 10-325 (Hydrocodone Bit/Acetaminophen) 1 Tab Tablet 1 Tab PO PRN Q4HRS PRN 05/11/18 Reported Gabapentin 800 Mg Tablet 800 Mg PO QID 05/11/18 Reported Comments echo The left ventricular systolic function is normal and the ejection fraction is within normal range. The Ejection Fraction is 60-65%. There is normal LV segmental wall motion. The right ventricle is mildly to moderately dilated. Doppler and Color Flow revealed moderate aortic regurgitation. (Cannot rule out severe AI based on PHT, consider BRIA) Impression . IMPRESSION: 1. Acute pulmonary embolism with multiple bilateral segmental and subsegmental mismatch defects along with acute extensive deep vein thrombosis. The risk factor is underlying pancreatic cancer, presenting as hypercoagulable state. 2. Acute on chronic hypoxic respiratory failure secondary to acute pulmonary embolism and underlying chronic obstructive pulmonary disease. 3. Recently diagnosed pancreatic cancer, not been on treatment yet. 4. Mildly increased troponin level, suspect secondary to RV ischemia. 5. Hemodynamically stable, does not require TPA. 6. Suspected underlying chronic obstructive pulmonary disease, could be severe. Plan . 1. Continue with present oxygen. will need another 6 min walk to assess home O needs 2. echo reviewed, ? severe AI cardiology on case 3. eliquis 4. Oxygen/ Nebs 5. May need a port. I would rec to hold for a week due to severe DVT and risk with with holding AC 6. Initiate pancreatic cancer treatment as OP 7. The patient will require lifelong anticoagulation due to underlying malignancy. 8. Continue bronchodilators. discussed w pt/ RN RICCI NESS MD Dec 05, 2018 12:02
--- NOTE | 2018-12-05 14:28 | NUR ---
SS following up with discharge planning. Pt is currently requiring oxygen. PT/OT recommended home healthcare at discharge. Pt was previously on services with [facility], ; fax [phone]. SS will continue to follow for discharge planning.
[2018-12-05 15:00] VITALS: BP 112/59
[2018-12-05 20:09] VITALS: BP 117/53
[2018-12-05] MEDS: AMITRIPTYLINE HCL 25 MG TABLET. PO SCH (20:43)
[2018-12-05] MEDS: ATORVASTATIN CALCIUM 10 MG TABLET. PO SCH (20:43)
[2018-12-05] MEDS: fentaNYL PF VIAL 100 MCG/2 ML VIAL IV PRN (22:00)
[2018-12-05 22:36] VITALS: BP 116/56
[2018-12-06 03:33] VITALS: BP 128/58
[2018-12-06 07:00] VITALS: BP 124/57
[2018-12-06] MEDS: IPRATRPIUM/ALBUTEROL 0.5/2.5MG 3 ML NEBU. NEB SCH ×4 (07:56→19:43)
[2018-12-06] MEDS: GABAPENTIN 400 MG CAPSULE. PO SCH ×4 (08:30→19:35)
[2018-12-06] MEDS: APIXABAN 5 MG TABLET. PO SCH (08:30)
[2018-12-06] MEDS: POLYETHYLENE GLYCOL 3350 17 GM PACKET. PO SCH (08:30)
[2018-12-06] MEDS: PANTOPRAZOLE 40 MG TABLET.DR. PO SCH (08:30)
[2018-12-06] MEDS: HYDROcodone/APAP 10/325 1 TAB TABLET PO PRN ×3 (08:30→20:37)
--- NOTE | 2018-12-06 09:57 | PDOC ---
SUBJECTIVE Subjective S: feels terrible, pain, constipation O: Physical exam: Gen.: Elderly female on oxygen, resting in bed Psychiatric: Pleasant mood and affect Labs: CEA of 17 and CA-19-9 of [id number] Rads: Prior scan showed evidence of colitis, bilateral liver metastasis, as well as recent scan showed bilateral lower extremity DVT and high probability VQ scan Assessment and Plan: 63-year-old female with metastatic pancreas cancer to the liver, bilateral lower extremity DVT, PE, and history of ulcerative colitis Lower extremity DVT: Symptoms appear to be improving, she continues anticoagulation On aspirin: dc'd PE: She will continue apixaban 10 mg by mouth twice a day �7 days and then can transition to 5 mg by mouth twice a day indefinitely, however may need heparin drip for procedure Metastatic pancreas cancer: We'll plan palliative gemcitabine as soon as she has some improvement post clot, we'll order port when safe to stop anticoagulation, she's having terrible pain, consider celiac block axis with heparin drip? IR consult placed, can hold apixaban and start heparin drip 12 hours after last dose of apixaban if IR agrees w/ celiac block, asking pall care to help w/ sx as well Deconditioned: would like to see her walking prior to starting palliative chemotherapy Thank you kindly and please do not hesitate to call with questions. OBJECTIVE Vital Signs Vital Signs Date Time Temp Pulse Resp B/P (MAP) Pulse Ox O2 Delivery O2 Flow Rate FiO2 12/06/18 09:50 Nasal Cannula 5.0 12/06/18 08:35 Nasal Cannula 5.0 12/06/18 07:57 97 Nasal Cannula 5.0 12/06/18 07:00 98.0 106 20 124/57 (79) 90 Nasal Cannula 5.0 98.0 12/06/18 03:33 97.9 110 20 128/58 (81) 90 Nasal Cannula 5.0 97.9 12/05/18 22:37 22 94 Nasal Cannula 5.0 12/05/18 22:36 99.5 103 18 116/56 (76) 94 Nasal Cannula 5.0 99.5 12/05/18 22:00 22 94 Nasal Cannula 5.0 12/05/18 21:46 18 94 Nasal Cannula 5.0 12/05/18 20:44 18 94 Nasal Cannula 5.0 12/05/18 20:09 98.9 111 18 117/53 (74) 94 Nasal Cannula 5.0 98.9 12/05/18 20:00 Nasal Cannula 5.0 12/05/18 19:42 95 Nasal Cannula 5.0 12/05/18 19:00 Nasal Cannula 12/05/18 16:03 93 Nasal Cannula 5.0 12/05/18 15:00 98.2 92 16 112/59 (76) 93 Room Air 98.2 12/05/18 11:41 93 Nasal Cannula 5.0 12/05/18 11:00 98.3 94 16 100/58 (72) 94 Nasal Cannula 5.0 98.3 I & O Intake and Output 12/06/18 06:59 Intake Total 600 ml Balance 600 ml Intake Oral 600 ml # Voids 3 Nutrition Consultation Dietary Evaluation: Recommendations by RD: Increase Calorie Intake, Protein supplementation Comments: Continue w/cardiac diet, will add GI soft REC Ensure prn/between meals Expected Outcomes/Goals: PO intake to meet >75% est needs Malnutrition Findings: Food and Nutrition Intake (Sev: <50% est energy req 5days Weight Status: Appropriate RANDALL GARCIA MD Dec 06, 2018 09:57
[2018-12-06] MEDS: fentaNYL 25MCG/HR PATCH 1 PATCH PATCH.TD72 TD SCH (10:15)
[2018-12-06 11:00] VITALS: BP 105/53
[2018-12-06] MEDS: ANTI-COAG MONITOR BY PHARMACY. MC PRN (11:02)
[2018-12-06] MEDS: fentaNYL PF VIAL 100 MCG/2 ML VIAL IV PRN ×4 (11:18→19:35)
[2018-12-06] MEDS ORDERED: WARF10TA45 MC (11:23)
--- NOTE | 2018-12-06 12:03 | PDOC ---
[employer] PROGRESS NOTE Chief Complaint Chief Complaint Pulmonary Embolism B/L DVT of lower extremities Acute on chronic respiratory failure Pancreatic Cancer Aortic Insufficiency COPD Elevated Troponin History of Present Illness History of Present Illness 12/06/18 Pt seen and examined lying in bed in NAD DW RN DW lead case manager Chart reviewed Vitals/I&O Vitals/I&O: Vital Signs Date Time Temp Pulse Resp B/P (MAP) Pulse Ox O2 Delivery O2 Flow Rate FiO2 12/06/18 11:22 Nasal Cannula 3.0 12/06/18 11:00 98.7 98 18 105/53 (70) 92 98.7 I & O 12/05/18 12/05/18 12/06/18 15:00 23:00 07:00 Intake Total 100 ml 200 ml 300 ml Balance 100 ml 200 ml 300 ml Physical Exam General: Alert, Oriented X3, Cooperative, No acute distress Heart: Regular rate (SR/ST), Normal S1, Normal S2, Other (S3/3/6 diastolic murmur to erbs) Lungs: Other (dIminished) Abdomen: Soft, No tenderness Extremities: No cyanosis, Other (trace LE, hot to touch skin to bilateral LE) Skin: No breakdown, No significant lesion Review of Systems Review of Systems: No co changes in vision No co skin changes Assessment and Plan Assessmemt and Plan Problems Medical Problems: (1) Elevated d-dimer Status: Acute (2) Elevated troponin Status: Acute (3) Hypoxia Status: Acute (4) Pancreatic cancer Status: Acute (5) Shortness of breath Status: Acute Assessment Pulmonary Embolism B/L DVT of lower extremities Acute on chronic respiratory failure Pancreatic Cancer Aortic Insufficiency COPD Elevated Troponin Plan D/C on anticoagulants Follow up for port placement and chemotherapy at later date PT/OT Home meds DVT prophylaxis Full code Appreciate subspecialty input Comment Review of Relevant I have reviewed the following items les (where applicable) has been applied. Medications: Current Medications Medications (Trade) Dose Ordered Sig/Dena Route PRN Reason Start Time Stop Time Status Last Admin Dose Admin Fentanyl (Duragesic 25mcg/ Hr Patch) 1 patch Q3DAYS TD 12/06/18 10:00 12/06/18 10:15 PHUC MILLER III DO Dec 06, 2018 12:03
--- NOTE | 2018-12-06 12:08 | PDOC ---
PULMONARY PROGRESS NOTES Subjective sob better, no cp, has occ cough, on home 02, is tired Vitals Vital Signs Date Time Temp Pulse Resp B/P (MAP) Pulse Ox O2 Delivery O2 Flow Rate FiO2 12/06/18 11:54 95 Nasal Cannula 4.0 12/06/18 11:00 98.7 98 18 105/53 (70) 98.7 ROS: No Nausea General: Alert, No acute distress HEENT: Other (nc at perrl) Lungs: Other (dIminished) Cardiovascular: S1, S2 Abdomen: Soft, Non-tender Neuro Exam: Alert Skin: Warm Medications Active Scripts Medications Dose Route/Sig Max Daily Dose Days Date Category Narcan (Naloxone HCl) 4 Mg [place] 4 Mg NS PRN DAILY PRN 30 11/28/18 Rx Polyethylene Glycol 3350 17 Gm Powd.pack 17 Gm PO DAILY 30 11/28/18 Rx FENTANYL 12mcg/hr (Fentanyl) 1 Each Patch.td72 1 Patch TD Q3DAYS 30 11/28/18 Rx Pantoprazole Sodium (Pantoprazole Sodium) 40 Mg Tablet.dr 40 Mg PO DAILYAC 30 11/28/18 Rx Aspirin 81 Mg Tab.chew 1 Tab PO DAILYWBKFT 11/22/18 Reported Amitriptyline Hcl 100 Mg Tablet 2.5 Tab PO QHS 05/11/18 Reported Hydrocodone-Apap 10-325 (Hydrocodone Bit/Acetaminophen) 1 Tab Tablet 1 Tab PO PRN Q4HRS PRN 05/11/18 Reported Gabapentin 800 Mg Tablet 800 Mg PO QID 05/11/18 Reported Comments echo The left ventricular systolic function is normal and the ejection fraction is within normal range. The Ejection Fraction is 60-65%. There is normal LV segmental wall motion. The right ventricle is mildly to moderately dilated. Doppler and Color Flow revealed moderate aortic regurgitation. (Cannot rule out severe AI based on PHT, consider BRIA) Impression . IMPRESSION: 1. Acute pulmonary embolism with multiple bilateral segmental and subsegmental mismatch defects along with acute extensive deep vein thrombosis. The risk factor is underlying pancreatic cancer, presenting as hypercoagulable state. 2. Acute on chronic hypoxic respiratory failure secondary to acute pulmonary embolism and underlying chronic obstructive pulmonary disease. 3. Recently diagnosed pancreatic cancer, not been on treatment yet. 4. Mildly increased troponin level, suspect secondary to RV ischemia. 5. Hemodynamically stable, does not require TPA. 6. Suspected underlying chronic obstructive pulmonary disease, could be severe. Plan . 1. Continue with present oxygen. will need another 6 min walk to assess home O needs 2. echo reviewed, ? severe AI cardiology on case 3. eliquis 4. Oxygen/ Nebs 5. May need a port. I would rec to hold for a week due to severe DVT and risk with with holding AC. may need celiac block. ok with bridging with heparin drip if needed 6. Initiate pancreatic cancer treatment as OP 7. The patient will require lifelong anticoagulation due to underlying malignancy. 8. Continue bronchodilators. discussed w pt/ RN RICCI NESS MD Dec 06, 2018 12:08
--- NOTE | 2018-12-06 13:21 | NUR ---
SS following up with discharge planning. Discharge orders for [facility] received. SS met with pt and pt's son in room to discuss [facility] and discharge planning. Pt reported that she would like to discharge to home with home healthcare but is agreeable to [facility] unit if she has to go. Pt reported having no preference of facility. SS phoned and faxed discharge orders and referral to [facility], ; fax [phone]. SS will await acceptance decision and will proceed accordingly with discharge planning.
[2018-12-06 15:00] VITALS: BP 138/64
--- NOTE | 2018-12-06 16:36 | PDOC2 ---
PALLIATIVE CARE Palliative Care Note Consult requested by Dr. Miller to address pain management. Medical Assessment per medical record. IMPRESSION: 1. Acute pulmonary embolism with multiple bilateral segmental and subsegmental mismatch defects along with acute extensive deep vein thrombosis. The risk factor is underlying pancreatic cancer, presenting as hypercoagulable state. 2. Acute on chronic hypoxic respiratory failure secondary to acute pulmonary embolism and underlying chronic obstructive pulmonary disease. 3. Recently diagnosed pancreatic cancer, not been on treatment yet. 4. Mildly increased troponin level, suspect secondary to RV ischemia. 5. Hemodynamically stable, does not require TPA. 6. Suspected underlying chronic obstructive pulmonary disease, could be severe. 1030 met with patient. Complains of severe pain--abdominal radiating to back. Rates pain at 8 and sometimes a 10 Currently on Fentanyl 50mcg patch.--recent change--will need to give at least 112 hours to become fully effective. Has received Fentanyl 50 mcg IV. with little relief . Kat LE will call to increase medication and decrease from every four hours to every 2 hours. 1545. Patient rates pain at 7. Will continue to monitor. Consider changing IV Fentanyl to Dilaudid. Code Status; Full Code. CECILIA CASILLAS Dec 06, 2018 16:36
[2018-12-06 18:54] VITALS: BP 113/53
[2018-12-06] MEDS: AMITRIPTYLINE HCL 25 MG TABLET. PO SCH (19:35)
[2018-12-06] MEDS: ATORVASTATIN CALCIUM 10 MG TABLET. PO SCH (19:35)
[2018-12-06] MEDS: HEPARIN 25,000UTS/500ML PREMIX 500 ML IV PRN (20:04)
[2018-12-06] MEDS ORDERED: HEPARIN for IV BOLUS 10,000 UNIT/10 ML VIAL. IV PRN ×2 (20:30)
[2018-12-06 23:00] VITALS: BP 90/47
[2018-12-07 03:00] VITALS: BP_SYST 135; BP_SYST 155; BP_DIAS 50; BP_DIAS 62
[2018-12-07 03:05] LABS: BASO % 0 % (0-3); EOS # 0.6 x10^3/uL (0.0-0.7); EOS % 6 % (0-3); HEMOGLOBIN 9.6 g/dL (12.0-15.5); LYMPH # 1.3 x10^3/uL (1.0-4.8); LYMPH % 14 % (24-48); MEAN CORPUSCULAR HEMOGLOBIN 31 pg (25-35); MEAN CORPUSCULAR HGB CONC 33 g/dL (31-37); MEAN CORPUSCULAR VOLUME 94 fL (79-100); MONO % 11 % (0-9); NEUT # 6.4 x10^3/uL (1.8-7.7); NEUT % 68 % (31-73); PLATELET COUNT 322 x10^3/uL (140-400); RED BLOOD COUNT 3.09 x10^6/uL (3.50-5.40); RED CELL DISTRIBUTION WIDTH 14.2 % (11.5-14.5); WHITE BLOOD COUNT 9.3 x10^3/uL (4.0-11.0)
[2018-12-07 03:33] LABS: CALCIUM 9.1 mg/dL (8.5-10.1); CREATININE 1.1 mg/dL (0.6-1.0); POTASSIUM 4.1 mmol/L (3.5-5.1)
[2018-12-07] MEDS: HEPARIN 25,000UTS/500ML PREMIX 500 ML IV PRN (04:25)
[2018-12-07] MEDS: HYDROcodone/APAP 10/325 1 TAB TABLET PO PRN ×4 (06:29→23:03)
[2018-12-07 07:52] VITALS: BP 120/53
[2018-12-07] MEDS: IPRATRPIUM/ALBUTEROL 0.5/2.5MG 3 ML NEBU. NEB SCH ×4 (08:00→19:52)
[2018-12-07] MEDS: GABAPENTIN 400 MG CAPSULE. PO SCH ×4 (09:11→22:36)
[2018-12-07] MEDS: PANTOPRAZOLE 40 MG TABLET.DR. PO SCH (09:12)
[2018-12-07] MEDS: POLYETHYLENE GLYCOL 3350 17 GM PACKET. PO SCH (09:12)
[2018-12-07] MEDS: fentaNYL PF VIAL 100 MCG/2 ML VIAL IV PRN ×5 (09:13→20:21)
[2018-12-07] MEDS ORDERED: POLYETHYLENE GLYCOL 3350 17 GM PACKET. PO ONE (10:00)
--- NOTE | 2018-12-07 10:08 | PDOC ---
SUBJECTIVE Subjective S: pain is better, still w/ constipation O: Physical exam: Gen.: Elderly female on oxygen, resting in bed Psychiatric: Pleasant mood and affect Labs: CEA of 17 and CA-19-9 of 7681, wbc 9.3, Hb 9.6, plt 322 Rads: Prior scan showed evidence of colitis, bilateral liver metastasis, as well as recent scan showed bilateral lower extremity DVT and high probability VQ scan Assessment and Plan: 63-year-old female with metastatic pancreas cancer to the liver, bilateral lower extremity DVT, PE, and history of ulcerative colitis Lower extremity DVT: Symptoms appear to be improving, she continues anticoagulation On aspirin at admit: dc'd PE: She will continue apixaban 10 mg by mouth twice a day �7 days and then can transition to 5 mg by mouth twice a day indefinitely, however currently getting heparin drip for procedure on Metastatic pancreas cancer: We'll plan palliative gemcitabine as soon as she has some improvement post clot, we'll order port and celiac procedure for urs with heparin drip bridge, IR assistance apprec, can restart apixaban 10 mg po bid when safe post procedure, apprec pall care assistance Ao Insuff: per cardiology Deconditioned: would like to see her walking prior to starting palliative chemotherapy Thank you kindly and please do not hesitate to call with questions. OBJECTIVE Vital Signs Vital Signs Date Time Temp Pulse Resp B/P (MAP) Pulse Ox O2 Delivery O2 Flow Rate FiO2 12/07/18 09:13 Nasal Cannula 5.0 12/07/18 08:01 88 Nasal Cannula 5.0 12/07/18 08:00 Nasal Cannula 5.0 12/07/18 07:52 99.2 105 18 120/53 (75) 92 Nasal Cannula 4.0 99.2 12/07/18 06:29 18 95 Nasal Cannula 4.0 12/07/18 03:00 98.6 98 18 135/62 (86) 95 Nasal Cannula 4.0 98.6 12/06/18 23:00 97.6 93 16 90/47 (61) 96 Nasal Cannula 4.0 97.6 12/06/18 22:55 18 90 Nasal Cannula 4.0 12/06/18 22:55 18 90 Nasal Cannula 4.0 12/06/18 20:37 18 90 Nasal Cannula 4.0 12/06/18 20:00 Nasal Cannula 4.0 12/06/18 19:56 18 90 Nasal Cannula 4.0 12/06/18 18:54 98.6 103 20 113/53 (73) 90 Nasal Cannula 4.0 98.6 12/06/18 17:43 Nasal Cannula 4.0 12/06/18 16:29 Nasal Cannula 4.0 12/06/18 16:29 Nasal Cannula 4.0 12/06/18 15:39 95 Nasal Cannula 4.0 12/06/18 15:00 99.4 107 20 138/64 (88) 90 Nasal Cannula 4.0 99.4 12/06/18 13:56 Nasal Cannula 4.0 12/06/18 11:54 95 Nasal Cannula 4.0 12/06/18 11:22 Nasal Cannula 3.0 12/06/18 11:00 98.7 98 18 105/53 (70) 92 Nasal Cannula 4.0 98.7 12/06/18 10:15 97 Nasal Cannula 5.0 I & O Intake and Output 12/07/18 07:00 Intake Total 464 ml Balance 464 ml Intake Oral 220 ml Other 244 ml # Voids 2 COMMENT Lab Laboratory Tests Test 12/07/18 02:20 White Blood Count 9.3 x10^3/uL (4.0-11.0) Red Blood Count 3.09 x10^6/uL (3.50-5.40) Hemoglobin 9.6 g/dL (12.0-15.5) Hematocrit 29.0 % (36.0-47.0) Mean Corpuscular Volume 94 fL (79-100) Mean Corpuscular Hemoglobin 31 pg (25-35) Mean Corpuscular Hemoglobin Concent 33 g/dL (31-37) Red Cell Distribution Width 14.2 % (11.5-14.5) Platelet Count 322 x10^3/uL (140-400) Neutrophils (%) (Auto) 68 % (31-73) Lymphocytes (%) (Auto) 14 % (24-48) Monocytes (%) (Auto) 11 % (0-9) Eosinophils (%) (Auto) 6 % (0-3) Basophils (%) (Auto) 0 % (0-3) Neutrophils # (Auto) 6.4 x10^3/uL (1.8-7.7) Lymphocytes # (Auto) 1.3 x10^3/uL (1.0-4.8) Monocytes # (Auto) 1.0 x10^3/uL (0.0-1.1) Eosinophils # (Auto) 0.6 x10^3/uL (0.0-0.7) Basophils # (Auto) 0.0 x10^3/uL (0.0-0.2) Heparin Anti-Xa Act, Unfractionated > 1.10 IU/mL (0.30-0.70) Sodium Level 137 mmol/L (136-145) Potassium Level 4.1 mmol/L (3.5-5.1) Chloride Level 100 mmol/L (98-107) Carbon Dioxide Level 28 mmol/L (21-32) Anion Gap 9 (6-14) Blood Urea Nitrogen 10 mg/dL (7-20) Creatinine 1.1 mg/dL (0.6-1.0) Estimated GFR (Cockcroft-Gault) 50.0 Glucose Level 119 mg/dL (70-99) Calcium Level 9.1 mg/dL (8.5-10.1) Nutrition Consultation Dietary Evaluation: Recommendations by RD: Increase Calorie Intake, Protein supplementation Comments: Continue w/cardiac diet, will add GI soft REC Ensure prn/between meals Expected Outcomes/Goals: PO intake to meet >75% est needs Malnutrition Findings: Food and Nutrition Intake (Sev: <50% est energy req 5days Weight Status: Appropriate RANDALL GARCIA MD Dec 07, 2018 10:08
[2018-12-07] MEDS ORDERED: POLYETHYLENE GLYCOL 3350 17 GM PACKET. PO PRN (10:15)
[2018-12-07 11:17] VITALS: BP 111/55
--- NOTE | 2018-12-07 11:28 | PDOC2 ---
PALLIATIVE CARE Palliative Care Note Palliative Care Patient alert. Visiting with son. States she slept well last night. Is confused using the numeric scale to rate pain. Utilization of faces is more helpful. Rates her pain mild to moderate. Good appetite today. CECILIA CASILLAS Dec 07, 2018 11:28
--- NOTE | 2018-12-07 13:16 | PDOC ---
[employer] PROGRESS NOTE Chief Complaint Chief Complaint Pulmonary Embolism B/L DVT of lower extremities Acute on chronic respiratory failure Pancreatic Cancer Aortic Insufficiency COPD Elevated Troponin History of Present Illness History of Present Illness 12/07/18 Pt seen and examined lying in bed in NAD on O2 nasal canula Pt fell this morning (per RN) Will be getting port tomorrow; also getting celiac block DW RN Chart reviewed 12/06/18 Pt seen and examined lying in bed in NAD ERNESTINA RN DW field case manager Chart reviewed Vitals/I&O Vitals/I&O: Vital Signs Date Time Temp Pulse Resp B/P (MAP) Pulse Ox O2 Delivery O2 Flow Rate FiO2 12/07/18 11:56 Nasal Cannula 5.0 12/07/18 11:32 94 12/07/18 11:17 98.5 98 18 111/55 (73) 98.5 I & O 12/06/18 12/06/18 12/07/18 15:00 23:00 07:00 Intake Total 220 ml 244 ml Balance 220 ml 244 ml Physical Exam General: Alert, Oriented X3, Cooperative, No acute distress Heart: Regular rate (SR/ST), Normal S1, Normal S2, Other (S3/3/6 diastolic murmur to erbs) Lungs: Other (dIminished) Abdomen: Soft, No tenderness Extremities: No cyanosis, No edema, Other (trace LE, hot to touch skin to bilateral LE) Skin: No rashes, No breakdown, No significant lesion Labs Labs: Laboratory Tests Test 12/07/18 02:20 12/07/18 10:30 White Blood Count 9.3 x10^3/uL (4.0-11.0) Red Blood Count 3.09 x10^6/uL (3.50-5.40) Hemoglobin 9.6 g/dL (12.0-15.5) Hematocrit 29.0 % (36.0-47.0) Mean Corpuscular Volume 94 fL (79-100) Mean Corpuscular Hemoglobin 31 pg (25-35) Mean Corpuscular Hemoglobin Concent 33 g/dL (31-37) Red Cell Distribution Width 14.2 % (11.5-14.5) Platelet Count 322 x10^3/uL (140-400) Neutrophils (%) (Auto) 68 % (31-73) Lymphocytes (%) (Auto) 14 % (24-48) Monocytes (%) (Auto) 11 % (0-9) Eosinophils (%) (Auto) 6 % (0-3) Basophils (%) (Auto) 0 % (0-3) Neutrophils # (Auto) 6.4 x10^3/uL (1.8-7.7) Lymphocytes # (Auto) 1.3 x10^3/uL (1.0-4.8) Monocytes # (Auto) 1.0 x10^3/uL (0.0-1.1) Eosinophils # (Auto) 0.6 x10^3/uL (0.0-0.7) Basophils # (Auto) 0.0 x10^3/uL (0.0-0.2) Heparin Anti-Xa Act, Unfractionated > 1.10 IU/mL (0.30-0.70) > 1.10 IU/mL (0.30-0.70) Sodium Level 137 mmol/L (136-145) Potassium Level 4.1 mmol/L (3.5-5.1) Chloride Level 100 mmol/L (98-107) Carbon Dioxide Level 28 mmol/L (21-32) Anion Gap 9 (6-14) Blood Urea Nitrogen 10 mg/dL (7-20) Creatinine 1.1 mg/dL (0.6-1.0) Estimated GFR (Cockcroft-Gault) 50.0 Glucose Level 119 mg/dL (70-99) Calcium Level 9.1 mg/dL (8.5-10.1) Review of Systems Review of Systems: No co acute pain No co changes in vision Assessment and Plan Assessmemt and Plan Problems Medical Problems: (1) Elevated d-dimer Status: Acute (2) Elevated troponin Status: Acute (3) Hypoxia Status: Acute (4) Pancreatic cancer Status: Acute (5) Shortness of breath Status: Acute Assessment Pulmonary Embolism B/L DVT of lower extremities Acute on chronic respiratory failure Pancreatic Cancer Aortic Insufficiency COPD Elevated Troponin Plan Discharge disposition pending Discharge to SNU when ok with subspecialists Follow up for port placement and chemotherapy at later date DVT prophylaxis PT/OT Home meds Full code Appreciate subspecialty input Comment Review of Relevant I have reviewed the following items les (where applicable) has been applied. Medications: Current Medications Medications (Trade) Dose Ordered Sig/Dena Route PRN Reason Start Time Stop Time Status Last Admin Dose Admin Heparin Sodium/ Dextrose 500 ml @ 0 mls/hr CONT PRN IV PER PROTOCOL 12/06/18 20:30 12/07/18 04:25 Polyethylene Glycol (miraLAX PACKET) 51 gm 1X ONCE PO 12/07/18 10:00 12/07/18 10:01 DC 12/07/18 10:55 PHUC MILLER III DO Dec 07, 2018 13:16
--- NOTE | 2018-12-07 13:33 | PDOC ---
PULMONARY PROGRESS NOTES Subjective sob better, no cp, has occ cough, on home 02, is tired Vitals Vital Signs Date Time Temp Pulse Resp B/P (MAP) Pulse Ox O2 Delivery O2 Flow Rate FiO2 12/07/18 11:56 Nasal Cannula 5.0 12/07/18 11:32 94 12/07/18 11:17 98.5 98 18 111/55 (73) 98.5 ROS: No Nausea General: Alert, No acute distress HEENT: Other (nc at perrl) Lungs: Other (dIminished) Cardiovascular: S1, S2 Abdomen: Soft, Non-tender Neuro Exam: Alert Skin: Warm Labs Laboratory Tests Test 12/07/18 02:20 12/07/18 10:30 White Blood Count 9.3 x10^3/uL (4.0-11.0) Red Blood Count 3.09 x10^6/uL (3.50-5.40) Hemoglobin 9.6 g/dL (12.0-15.5) Hematocrit 29.0 % (36.0-47.0) Mean Corpuscular Volume 94 fL (79-100) Mean Corpuscular Hemoglobin 31 pg (25-35) Mean Corpuscular Hemoglobin Concent 33 g/dL (31-37) Red Cell Distribution Width 14.2 % (11.5-14.5) Platelet Count 322 x10^3/uL (140-400) Neutrophils (%) (Auto) 68 % (31-73) Lymphocytes (%) (Auto) 14 % (24-48) Monocytes (%) (Auto) 11 % (0-9) Eosinophils (%) (Auto) 6 % (0-3) Basophils (%) (Auto) 0 % (0-3) Neutrophils # (Auto) 6.4 x10^3/uL (1.8-7.7) Lymphocytes # (Auto) 1.3 x10^3/uL (1.0-4.8) Monocytes # (Auto) 1.0 x10^3/uL (0.0-1.1) Eosinophils # (Auto) 0.6 x10^3/uL (0.0-0.7) Basophils # (Auto) 0.0 x10^3/uL (0.0-0.2) Heparin Anti-Xa Act, Unfractionated > 1.10 IU/mL (0.30-0.70) > 1.10 IU/mL (0.30-0.70) Sodium Level 137 mmol/L (136-145) Potassium Level 4.1 mmol/L (3.5-5.1) Chloride Level 100 mmol/L (98-107) Carbon Dioxide Level 28 mmol/L (21-32) Anion Gap 9 (6-14) Blood Urea Nitrogen 10 mg/dL (7-20) Creatinine 1.1 mg/dL (0.6-1.0) Estimated GFR (Cockcroft-Gault) 50.0 Glucose Level 119 mg/dL (70-99) Calcium Level 9.1 mg/dL (8.5-10.1) Laboratory Tests Test 12/07/18 02:20 12/07/18 10:30 White Blood Count 9.3 x10^3/uL (4.0-11.0) Red Blood Count 3.09 x10^6/uL (3.50-5.40) Hemoglobin 9.6 g/dL (12.0-15.5) Hematocrit 29.0 % (36.0-47.0) Mean Corpuscular Volume 94 fL (79-100) Mean Corpuscular Hemoglobin 31 pg (25-35) Mean Corpuscular Hemoglobin Concent 33 g/dL (31-37) Red Cell Distribution Width 14.2 % (11.5-14.5) Platelet Count 322 x10^3/uL (140-400) Neutrophils (%) (Auto) 68 % (31-73) Lymphocytes (%) (Auto) 14 % (24-48) Monocytes (%) (Auto) 11 % (0-9) Eosinophils (%) (Auto) 6 % (0-3) Basophils (%) (Auto) 0 % (0-3) Neutrophils # (Auto) 6.4 x10^3/uL (1.8-7.7) Lymphocytes # (Auto) 1.3 x10^3/uL (1.0-4.8) Monocytes # (Auto) 1.0 x10^3/uL (0.0-1.1) Eosinophils # (Auto) 0.6 x10^3/uL (0.0-0.7) Basophils # (Auto) 0.0 x10^3/uL (0.0-0.2) Heparin Anti-Xa Act, Unfractionated > 1.10 IU/mL (0.30-0.70) > 1.10 IU/mL (0.30-0.70) Sodium Level 137 mmol/L (136-145) Potassium Level 4.1 mmol/L (3.5-5.1) Chloride Level 100 mmol/L (98-107) Carbon Dioxide Level 28 mmol/L (21-32) Anion Gap 9 (6-14) Blood Urea Nitrogen 10 mg/dL (7-20) Creatinine 1.1 mg/dL (0.6-1.0) Estimated GFR (Cockcroft-Gault) 50.0 Glucose Level 119 mg/dL (70-99) Calcium Level 9.1 mg/dL (8.5-10.1) Medications Active Scripts Medications Dose Route/Sig Max Daily Dose Days Date Category Narcan (Naloxone HCl) 4 Mg [place] 4 Mg NS PRN DAILY PRN 30 11/28/18 Rx Polyethylene Glycol 3350 17 Gm Powd.pack 17 Gm PO DAILY 11/28/18 Rx FENTANYL 12mcg/hr (Fentanyl) 1 Each Patch.td72 1 Patch TD Q3DAYS 11/28/18 Rx Pantoprazole Sodium (Pantoprazole Sodium) 40 Mg Tablet.dr 40 Mg PO DAILYAC 11/28/18 Rx Aspirin 81 Mg Tab.chew 1 Tab PO DAILYWBKFT 11/22/18 Reported Amitriptyline Hcl 100 Mg Tablet 2.5 Tab PO QHS 05/11/18 Reported Hydrocodone-Apap 10-325 (Hydrocodone Bit/Acetaminophen) 1 Tab Tablet 1 Tab PO PRN Q4HRS PRN 05/11/18 Reported Gabapentin 800 Mg Tablet 800 Mg PO QID 05/11/18 Reported Comments echo The left ventricular systolic function is normal and the ejection fraction is within normal range. The Ejection Fraction is 60-65%. There is normal LV segmental wall motion. The right ventricle is mildly to moderately dilated. Doppler and Color Flow revealed moderate aortic regurgitation. (Cannot rule out severe AI based on PHT, consider BRIA) Impression . IMPRESSION: 1. Acute pulmonary embolism with multiple bilateral segmental and subsegmental mismatch defects along with acute extensive deep vein thrombosis. The risk factor is underlying pancreatic cancer, presenting as hypercoagulable state. 2. Acute on chronic hypoxic respiratory failure secondary to acute pulmonary embolism and underlying chronic obstructive pulmonary disease. 3. Recently diagnosed pancreatic cancer, not been on treatment yet. 4. Mildly increased troponin level, suspect secondary to RV ischemia. 5. Hemodynamically stable, does not require TPA. 6. Suspected underlying chronic obstructive pulmonary disease, could be severe. Plan . 1. Continue with present oxygen. will need another 6 min walk to assess home O2 needs 2. echo reviewed, ? severe AI cardiology on case 3. slowly improving 4. Oxygen/ Nebs 5. Port and celiac block in am.. ok with bridging with heparin drip , re-start Eliquis post procedure 6. Initiate pancreatic cancer treatment as OP 7. The patient will require lifelong anticoagulation due to underlying malignancy. 8. Continue bronchodilators. discussed w pt/ RN RICCI NESS MD Dec 07, 2018 13:33
[2018-12-07] MEDS: guaiFENesin DM 200MG/20MG 10 ML SYRUP PO PRN ×2 (13:39→22:56)
[2018-12-07 14:34] VITALS: BP 108/55
[2018-12-07] MEDS ORDERED: HEPARIN for IV BOLUS 10,000 UNIT/10 ML VIAL. IV PRN (16:34)
[2018-12-07 19:00] VITALS: BP 129/60
--- NOTE | 2018-12-07 19:18 | NUR ---
RN NOTE patient complaining of mouth pain. paged dr carlisle for thrush medication and for long acting pain medication
[2018-12-07] MEDS: AMITRIPTYLINE HCL 25 MG TABLET. PO SCH (20:20)
[2018-12-07] MEDS: ATORVASTATIN CALCIUM 10 MG TABLET. PO SCH (20:21)
[2018-12-07 23:00] VITALS: BP 146/83
--- NOTE | 2018-12-07 23:42 | NUR ---
Patient is complaining of heartburn and indigestion. VS 146/83 P99,T98.8, R12. No prn available. RN paged Dr. Turcios. RN will continue to monitor.
[2018-12-08] MEDS ORDERED: CALCIUM CARBONATE 500 MG TAB.CHEW PO PRN (01:00)
[2018-12-08 03:00] VITALS: BP 119/56
[2018-12-08 07:00] VITALS: BP 128/60
[2018-12-08] MEDS: IPRATRPIUM/ALBUTEROL 0.5/2.5MG 3 ML NEBU. NEB SCH ×4 (08:33→20:17)
[2018-12-08] MEDS: fentaNYL PF VIAL 100 MCG/2 ML VIAL IV PRN ×2 (08:52→19:11)
[2018-12-08] MEDS: guaiFENesin DM 200MG/20MG 10 ML SYRUP PO PRN (09:31)
[2018-12-08 09:48] LABS: BASO % 0 % (0-3); EOS # 0.5 x10^3/uL (0.0-0.7); EOS % 5 % (0-3); HEMOGLOBIN 10.2 g/dL (12.0-15.5); LYMPH # 1.4 x10^3/uL (1.0-4.8); LYMPH % 12 % (24-48); MEAN CORPUSCULAR HEMOGLOBIN 31 pg (25-35); MEAN CORPUSCULAR HGB CONC 33 g/dL (31-37); MEAN CORPUSCULAR VOLUME 94 fL (79-100); MONO % 9 % (0-9); NEUT # 8.8 x10^3/uL (1.8-7.7); NEUT % 75 % (31-73); PLATELET COUNT 410 x10^3/uL (140-400); RED BLOOD COUNT 3.29 x10^6/uL (3.50-5.40); RED CELL DISTRIBUTION WIDTH 14.2 % (11.5-14.5); WHITE BLOOD COUNT 11.9 x10^3/uL (4.0-11.0)
[2018-12-08 10:47] LABS: CALCIUM 10.2 mg/dL (8.5-10.1); CREATININE 1.1 mg/dL (0.6-1.0); POTASSIUM 4.7 mmol/L (3.5-5.1)
[2018-12-08] MEDS: HYDROcodone/APAP 10/325 1 TAB TABLET PO PRN (10:52)
[2018-12-08] MEDS: PANTOPRAZOLE 40 MG TABLET.DR. PO SCH (10:52)
[2018-12-08] MEDS: POLYETHYLENE GLYCOL 3350 17 GM PACKET. PO SCH (10:52)
[2018-12-08] MEDS: GABAPENTIN 400 MG CAPSULE. PO SCH ×4 (10:52→20:20)
--- NOTE | 2018-12-08 10:52 | PDOC ---
PULMONARY PROGRESS NOTES Subjective sob better, no cp, has occ cough, Vitals Vital Signs Date Time Temp Pulse Resp B/P (MAP) Pulse Ox O2 Delivery O2 Flow Rate FiO2 12/08/18 08:52 20 Nasal Cannula 5.0 12/08/18 08:38 82 12/08/18 07:00 99.1 92 128/60 (82) 99.1 ROS: No Nausea General: Alert, No acute distress HEENT: Other (nc at perrl) Lungs: Other (dIminished) Cardiovascular: S1, S2 Abdomen: Soft, Non-tender Neuro Exam: Alert Skin: Warm Labs Laboratory Tests Test 12/07/18 02:20 12/07/18 10:30 12/07/18 16:21 12/07/18 22:40 White Blood Count 9.3 x10^3/uL (4.0-11.0) Red Blood Count 3.09 x10^6/uL (3.50-5.40) Hemoglobin 9.6 g/dL (12.0-15.5) Hematocrit 29.0 % (36.0-47.0) Mean Corpuscular Volume 94 fL (79-100) Mean Corpuscular Hemoglobin 31 pg (25-35) Mean Corpuscular Hemoglobin Concent 33 g/dL (31-37) Red Cell Distribution Width 14.2 % (11.5-14.5) Platelet Count 322 x10^3/uL (140-400) Neutrophils (%) (Auto) 68 % (31-73) Lymphocytes (%) (Auto) 14 % (24-48) Monocytes (%) (Auto) 11 % (0-9) Eosinophils (%) (Auto) 6 % (0-3) Basophils (%) (Auto) 0 % (0-3) Neutrophils # (Auto) 6.4 x10^3/uL (1.8-7.7) Lymphocytes # (Auto) 1.3 x10^3/uL (1.0-4.8) Monocytes # (Auto) 1.0 x10^3/uL (0.0-1.1) Eosinophils # (Auto) 0.6 x10^3/uL (0.0-0.7) Basophils # (Auto) 0.0 x10^3/uL (0.0-0.2) Heparin Anti-Xa Act, Unfractionated > 1.10 IU/mL (0.30-0.70) > 1.10 IU/mL (0.30-0.70) Sodium Level 137 mmol/L (136-145) Potassium Level 4.1 mmol/L (3.5-5.1) Chloride Level 100 mmol/L (98-107) Carbon Dioxide Level 28 mmol/L (21-32) Anion Gap 9 (6-14) Blood Urea Nitrogen 10 mg/dL (7-20) Creatinine 1.1 mg/dL (0.6-1.0) Estimated GFR (Cockcroft-Gault) 50.0 Glucose Level 119 mg/dL (70-99) Calcium Level 9.1 mg/dL (8.5-10.1) Activated Partial Thromboplast Time 44 SEC (24-38) 48 SEC (24-38) Test 12/08/18 09:20 White Blood Count 11.9 x10^3/uL (4.0-11.0) Red Blood Count 3.29 x10^6/uL (3.50-5.40) Hemoglobin 10.2 g/dL (12.0-15.5) Hematocrit 31.0 % (36.0-47.0) Mean Corpuscular Volume 94 fL (79-100) Mean Corpuscular Hemoglobin 31 pg (25-35) Mean Corpuscular Hemoglobin Concent 33 g/dL (31-37) Red Cell Distribution Width 14.2 % (11.5-14.5) Platelet Count 410 x10^3/uL (140-400) Neutrophils (%) (Auto) 75 % (31-73) Lymphocytes (%) (Auto) 12 % (24-48) Monocytes (%) (Auto) 9 % (0-9) Eosinophils (%) (Auto) 5 % (0-3) Basophils (%) (Auto) 0 % (0-3) Neutrophils # (Auto) 8.8 x10^3/uL (1.8-7.7) Lymphocytes # (Auto) 1.4 x10^3/uL (1.0-4.8) Monocytes # (Auto) 1.0 x10^3/uL (0.0-1.1) Eosinophils # (Auto) 0.5 x10^3/uL (0.0-0.7) Basophils # (Auto) 0.0 x10^3/uL (0.0-0.2) Activated Partial Thromboplast Time 41 SEC (24-38) Laboratory Tests Test 12/07/18 16:21 12/07/18 22:40 12/08/18 09:20 Activated Partial Thromboplast Time 44 SEC (24-38) 48 SEC (24-38) 41 SEC (24-38) White Blood Count 11.9 x10^3/uL (4.0-11.0) Red Blood Count 3.29 x10^6/uL (3.50-5.40) Hemoglobin 10.2 g/dL (12.0-15.5) Hematocrit 31.0 % (36.0-47.0) Mean Corpuscular Volume 94 fL (79-100) Mean Corpuscular Hemoglobin 31 pg (25-35) Mean Corpuscular Hemoglobin Concent 33 g/dL (31-37) Red Cell Distribution Width 14.2 % (11.5-14.5) Platelet Count 410 x10^3/uL (140-400) Neutrophils (%) (Auto) 75 % (31-73) Lymphocytes (%) (Auto) 12 % (24-48) Monocytes (%) (Auto) 9 % (0-9) Eosinophils (%) (Auto) 5 % (0-3) Basophils (%) (Auto) 0 % (0-3) Neutrophils # (Auto) 8.8 x10^3/uL (1.8-7.7) Lymphocytes # (Auto) 1.4 x10^3/uL (1.0-4.8) Monocytes # (Auto) 1.0 x10^3/uL (0.0-1.1) Eosinophils # (Auto) 0.5 x10^3/uL (0.0-0.7) Basophils # (Auto) 0.0 x10^3/uL (0.0-0.2) Medications Active Scripts Medications Dose Route/Sig Max Daily Dose Days Date Category Narcan (Naloxone HCl) 4 Mg [place] 4 Mg NS PRN DAILY PRN 30 11/28/18 Rx Polyethylene Glycol 3350 17 Gm Powd.pack 17 Gm PO DAILY 30 11/28/18 Rx FENTANYL 12mcg/hr (Fentanyl) 1 Each Patch.td72 1 Patch TD Q3DAYS 30 11/28/18 Rx Pantoprazole Sodium (Pantoprazole Sodium) 40 Mg Tablet.dr 40 Mg PO DAILYAC 30 11/28/18 Rx Aspirin 81 Mg Tab.chew 1 Tab PO DAILYWBKFT 11/22/18 Reported Amitriptyline Hcl 100 Mg Tablet 2.5 Tab PO QHS 05/11/18 Reported Hydrocodone-Apap 10-325 (Hydrocodone Bit/Acetaminophen) 1 Tab Tablet 1 Tab PO PRN Q4HRS PRN 05/11/18 Reported Gabapentin 800 Mg Tablet 800 Mg PO QID 05/11/18 Reported Comments echo The left ventricular systolic function is normal and the ejection fraction is within normal range. The Ejection Fraction is 60-65%. There is normal LV segmental wall motion. The right ventricle is mildly to moderately dilated. Doppler and Color Flow revealed moderate aortic regurgitation. (Cannot rule out severe AI based on PHT, consider BRIA) Impression . IMPRESSION: 1. Acute pulmonary embolism with multiple bilateral segmental and subsegmental mismatch defects along with acute extensive deep vein thrombosis. The risk factor is underlying pancreatic cancer, presenting as hypercoagulable state. 2. Acute on chronic hypoxic respiratory failure secondary to acute pulmonary embolism and underlying chronic obstructive pulmonary disease. 3. Recently diagnosed pancreatic cancer, not been on treatment yet. 4. Mildly increased troponin level, suspect secondary to RV ischemia. 5. Hemodynamically stable, did not require TPA. 6. Suspected underlying chronic obstructive pulmonary disease, could be severe. Plan . 1. Continue with present oxygen. wean to keep sats @ p4%. will need another 6 min walk to assess home O2 needs at dc 2. echo reviewed, severe AI cardiology on case 3. slowly improving 4. Oxygen/ Nebs 5. Port and celiac block in am.. ok with bridging with heparin drip , re-start Eliquis post procedure 6. Initiate pancreatic cancer treatment as OP 7. The patient will require lifelong anticoagulation due to underlying malignancy. 8. Continue bronchodilators. discussed w pt/ RN/ RICCI Mccray MD Dec 08, 2018 10:52
[2018-12-08 11:00] VITALS: BP 147/61
--- NOTE | 2018-12-08 11:36 | PDOC ---
[employer] PROGRESS NOTE Chief Complaint Chief Complaint Pulmonary Embolism B/L DVT of lower extremities Acute on chronic respiratory failure Pancreatic Cancer Aortic Insufficiency COPD Elevated Troponin History of Present Illness History of Present Illness 12/08/18 Pt seen/examined at bedside in [facility] Dr. Anders regarding celiac block Pt is on NC 4.0L and sating at 94% DW RN Chart reviewed 12/07/18 Pt seen and examined lying in bed in [facility] on O2 nasal canula Pt fell this morning (per RN) Will be getting port tomorrow; also getting celiac block DW RN Chart reviewed 12/06/18 Pt seen and examined lying in bed in [facility] DW RN DW supervisor case loading Chart reviewed Vitals/I&O Vitals/I&O: Vital Signs Date Time Temp Pulse Resp B/P (MAP) Pulse Ox O2 Delivery O2 Flow Rate FiO2 12/08/18 11:00 98.0 101 18 147/61 (89) 94 Nasal Cannula 4.0 98.0 I & O 12/07/18 12/07/18 12/08/18 14:59 22:59 06:59 Intake Total 220 ml 480 ml 1600 ml Output Total 100 ml 450 ml Balance 220 ml 380 ml 1150 ml Physical Exam General: Alert, Oriented X3, Cooperative, No acute distress Heart: Regular rate (SR/ST), Normal S1, Normal S2, Other (S3/3/6 diastolic murmur to erbs) Lungs: Other (dIminished) Abdomen: Soft, No tenderness Extremities: No cyanosis, No edema, Other (trace LE, hot to touch skin to bilateral LE) Skin: No rashes, No breakdown, No significant lesion Labs Labs: Laboratory Tests Test 12/07/18 16:21 12/07/18 22:40 12/08/18 09:20 Activated Partial Thromboplast Time 44 SEC (24-38) 48 SEC (24-38) 41 SEC (24-38) White Blood Count 11.9 x10^3/uL (4.0-11.0) Red Blood Count 3.29 x10^6/uL (3.50-5.40) Hemoglobin 10.2 g/dL (12.0-15.5) Hematocrit 31.0 % (36.0-47.0) Mean Corpuscular Volume 94 fL (79-100) Mean Corpuscular Hemoglobin 31 pg (25-35) Mean Corpuscular Hemoglobin Concent 33 g/dL (31-37) Red Cell Distribution Width 14.2 % (11.5-14.5) Platelet Count 410 x10^3/uL (140-400) Neutrophils (%) (Auto) 75 % (31-73) Lymphocytes (%) (Auto) 12 % (24-48) Monocytes (%) (Auto) 9 % (0-9) Eosinophils (%) (Auto) 5 % (0-3) Basophils (%) (Auto) 0 % (0-3) Neutrophils # (Auto) 8.8 x10^3/uL (1.8-7.7) Lymphocytes # (Auto) 1.4 x10^3/uL (1.0-4.8) Monocytes # (Auto) 1.0 x10^3/uL (0.0-1.1) Eosinophils # (Auto) 0.5 x10^3/uL (0.0-0.7) Basophils # (Auto) 0.0 x10^3/uL (0.0-0.2) Sodium Level 137 mmol/L (136-145) Potassium Level 4.7 mmol/L (3.5-5.1) Chloride Level 98 mmol/L (98-107) Carbon Dioxide Level 28 mmol/L (21-32) Anion Gap 11 (6-14) Blood Urea Nitrogen 9 mg/dL (7-20) Creatinine 1.1 mg/dL (0.6-1.0) Estimated GFR (Cockcroft-Gault) 50.0 Glucose Level 122 mg/dL (70-99) Calcium Level 10.2 mg/dL (8.5-10.1) Review of Systems Review of Systems: co weakness co SOB Assessment and Plan Assessmemt and Plan Problems Medical Problems: (1) Elevated d-dimer Status: Acute (2) Elevated troponin Status: Acute (3) Hypoxia Status: Acute (4) Pancreatic cancer Status: Acute (5) Shortness of breath Status: Acute Assessment Pulmonary Embolism B/L DVT of lower extremities Acute on chronic respiratory failure Pancreatic Cancer Aortic Insufficiency COPD Elevated Troponin Plan Celiac block tomorrow Follow up for port placement and chemotherapy at later date DVT prophylaxis PT/OT Home meds Full code Consult Pain management Switch patient medication to Dilaudid 1 mg q2h Appreciate subspecialty input Total time 33 min Comment Review of Relevant I have reviewed the following items les (where applicable) has been applied. Medications: Current Medications Medications (Trade) Dose Ordered Sig/Dena Route PRN Reason Start Time Stop Time Status Last Admin Dose Admin Guaifenesin (Robitussin Dm) 10 ml PRN Q6HRS PRN PO COUGH 12/07/18 13:00 12/08/18 09:31 PHUC MILLER III DO Dec 08, 2018 11:36
[2018-12-08] MEDS: HYDROmorphone 2 MG/ML VIAL IV PRN ×3 (12:38→20:19)
--- NOTE | 2018-12-08 13:31 | PDOC ---
SUBJECTIVE Subjective Abdominal pain OBJECTIVE Objective 63 yo female c/o abdominal pain with history of pulmonary embolism, chronic hypoxic respiratory failure secondary to acute pulmonary embolism and underlying chronic obstructive pulmonary disease. Recently dx,metastatic pancreatic cancer. Anemia HTN Peripheral neuropathy DM2, bladder prolapse GERD Fibromyalgia Extensive deep venous thrombosis burden involving both lower extremities with complete occlusion of the bilateral superficial femoral veins and popliteal veins. Partially occlusive thrombus within the bilateral posterior tibial veins.Common femoral veins are patent Vital Signs Vital Signs Date Time Temp Pulse Resp B/P (MAP) Pulse Ox O2 Delivery O2 Flow Rate FiO2 12/08/18 12:38 Nasal Cannula 4.0 12/08/18 11:00 98.0 101 18 147/61 (89) 94 Nasal Cannula 4.0 98.0 12/08/18 10:52 20 Nasal Cannula 4.0 12/08/18 08:52 20 Nasal Cannula 5.0 12/08/18 08:38 82 Room Air 12/08/18 08:00 Nasal Cannula 5.0 12/08/18 07:00 99.1 92 18 128/60 (82) 96 Nasal Cannula 4.0 99.1 12/08/18 03:00 98.4 88 16 119/56 (77) 95 Nasal Cannula 4.0 98.4 12/08/18 00:37 18 94 Nasal Cannula 6.0 12/07/18 23:03 18 94 Nasal Cannula 6.0 12/07/18 23:00 98.8 99 12 146/83 (104) 97 Nasal Cannula 4.0 98.8 12/07/18 22:58 18 94 Nasal Cannula 6.0 12/07/18 20:21 18 94 Nasal Cannula 6.0 12/07/18 20:00 Nasal Cannula 5.0 12/07/18 20:00 Nasal Cannula 6.0 12/07/18 19:52 94 Nasal Cannula 6.0 12/07/18 19:00 99.0 102 12 129/60 (83) 95 Nasal Cannula 4.0 99.0 12/07/18 17:44 Nasal Cannula 5.0 12/07/18 17:44 Nasal Cannula 5.0 12/07/18 16:19 Nasal Cannula 5.0 12/07/18 16:03 Nasal Cannula 6.0 12/07/18 15:03 Nasal Cannula 5.0 12/07/18 14:34 98.1 95 18 108/55 (72) 97 Nasal Cannula 4.0 98.1 I & O Intake and Output 12/08/18 07:00 Intake Total 2300 ml Output Total 550 ml Balance 1750 ml Intake Oral 2300 ml Output Urine Total 550 ml # Voids 2 ASSESSMENT/PLAN Assessment/Plan Medications reviewed; REC: increase hydromorphone to 1-2 mg IV q 1hr -PRN If pt will remain hospitalized, consider fentanyl [employer] without basal, and maintain Durgesic patch 25mcg COMMENT Lab Laboratory Tests Test 12/07/18 16:21 12/07/18 22:40 12/08/18 09:20 Activated Partial Thromboplast Time 44 SEC (24-38) 48 SEC (24-38) 41 SEC (24-38) White Blood Count 11.9 x10^3/uL (4.0-11.0) Red Blood Count 3.29 x10^6/uL (3.50-5.40) Hemoglobin 10.2 g/dL (12.0-15.5) Hematocrit 31.0 % (36.0-47.0) Mean Corpuscular Volume 94 fL (79-100) Mean Corpuscular Hemoglobin 31 pg (25-35) Mean Corpuscular Hemoglobin Concent 33 g/dL (31-37) Red Cell Distribution Width 14.2 % (11.5-14.5) Platelet Count 410 x10^3/uL (140-400) Neutrophils (%) (Auto) 75 % (31-73) Lymphocytes (%) (Auto) 12 % (24-48) Monocytes (%) (Auto) 9 % (0-9) Eosinophils (%) (Auto) 5 % (0-3) Basophils (%) (Auto) 0 % (0-3) Neutrophils # (Auto) 8.8 x10^3/uL (1.8-7.7) Lymphocytes # (Auto) 1.4 x10^3/uL (1.0-4.8) Monocytes # (Auto) 1.0 x10^3/uL (0.0-1.1) Eosinophils # (Auto) 0.5 x10^3/uL (0.0-0.7) Basophils # (Auto) 0.0 x10^3/uL (0.0-0.2) Sodium Level 137 mmol/L (136-145) Potassium Level 4.7 mmol/L (3.5-5.1) Chloride Level 98 mmol/L (98-107) Carbon Dioxide Level 28 mmol/L (21-32) Anion Gap 11 (6-14) Blood Urea Nitrogen 9 mg/dL (7-20) Creatinine 1.1 mg/dL (0.6-1.0) Estimated GFR (Cockcroft-Gault) 50.0 Glucose Level 122 mg/dL (70-99) Calcium Level 10.2 mg/dL (8.5-10.1) Nutrition Consultation Dietary Evaluation: Recommendations by RD: Increase Calorie Intake, Protein supplementation Comments: Continue w/cardiac diet, will add GI soft REC Ensure prn/between meals Expected Outcomes/Goals: PO intake to meet >75% est needs Malnutrition Findings: Food and Nutrition Intake (Sev: <50% est energy req 5days Weight Status: Appropriate SILVESTRE FINNEY MD Dec 08, 2018 13:31
[2018-12-08 14:36] VITALS: BP 110/52
--- NOTE | 2018-12-08 14:55 | PDOC2 ---
PALLIATIVE CARE Palliative Care Note Palliative Care 0900 Patient seen. Complained of severe pain--abdomen and back primarily. Just received Fentanyl 75 mcq. . Had not asked for or received anything for last 12 hours. Patient needs pain assessment more frequently until pain is under control. Dilaudid suggested again. Fentanyl 25mcq patch. Patient rated "Best pain relief in last 24 hours 4-5. Spoke with patient and son. Discussed Code Status and completing AD document. Spoke with Dr. Turcios. Pain Management Consult CECILIA CASILLAS Dec 08, 2018 14:55
[2018-12-08] MEDS: ANTI-COAG MONITOR BY PHARMACY. MC PRN (15:46)
[2018-12-08 19:00] VITALS: BP 134/80
[2018-12-08] MEDS: AMITRIPTYLINE HCL 25 MG TABLET. PO SCH (20:20)
[2018-12-08] MEDS: ATORVASTATIN CALCIUM 10 MG TABLET. PO SCH (20:20)
[2018-12-08] MEDS ORDERED: APIXABAN 5 MG TABLET. PO SCH (21:00)
[2018-12-08] MEDS ORDERED: predniSONE 10 MG TABLET PO ONE (22:00)
[2018-12-08] MEDS ORDERED: ONDANSETRON PF 4 MG/2 ML VIAL. IV PRN (22:30)
--- NOTE | 2018-12-08 22:30 | NUR ---
Pt had been switched to 1mg IV dilaudid q 2hrs prn for pain control. Pt requested prn dose with scheduled hs medications, rated pain 10/10, administered with family at bedside. Pt at time of administration was restless, A/Ox4, c/o not being able to relax. Around 2144, pt started falling asleep with son at bedside, pts breathing pattern became agonal using accessory muscles. O2 sats dropped to 78%, oxygen was titrated to 8L, pts saturation plateaued at 84%, unable to erose pt. 0.4mg IV narcan was administered and pt awoke a minute later confused to situation. Son was at bedside during entire episode, pt was reorientated and educated on the effects of opioids, pt states she does not want the dilaudid anymore. Pt and family agree, VSS, Pt ST on telemetry, bed in low/locked position, call light within reach, will continue to monitor for status changes.
[2018-12-08 23:00] VITALS: BP 165/65
[2018-12-09] VITALS (28 sets, daily range): BP systolic 112–168; BP diastolic 52–109
[2018-12-09 03:36] LABS: BASO % 0 % (0-3); EOS # 0.1 x10^3/uL (0.0-0.7); EOS % 1 % (0-3); HEMATOCRIT 28.3 % (36.0-47.0); HEMOGLOBIN 9.5 g/dL (12.0-15.5); LYMPH # 0.4 x10^3/uL (1.0-4.8); LYMPH % 4 % (24-48); MEAN CORPUSCULAR HEMOGLOBIN 31 pg (25-35); MEAN CORPUSCULAR HGB CONC 33 g/dL (31-37); MEAN CORPUSCULAR VOLUME 94 fL (79-100); MONO # 0.5 x10^3/uL (0.0-1.1); MONO % 4 % (0-9); NEUT # 9.9 x10^3/uL (1.8-7.7); NEUT % 90 % (31-73); PLATELET COUNT 353 x10^3/uL (140-400); RED BLOOD COUNT 3.03 x10^6/uL (3.50-5.40); RED CELL DISTRIBUTION WIDTH 13.6 % (11.5-14.5)
[2018-12-09 03:45] LABS: CALCIUM 9.8 mg/dL (8.5-10.1); GFR 55.8
[2018-12-09 04:03] LABS: % BANDS 1 % (0-9); % EOS 1 % (0-5); % LYMPHS 3 % (24-48); % MONOS 4 % (0-10); % SEGS 91 % (35-66); ANISOCYTOSIS SLIGHT; HYPOCHROMIA SLIGHT; PLT ESTIMATE ADEQUATE (ADEQUATE); TOXIC GRANULATION SLIGHT
[2018-12-09] MEDS ORDERED: predniSONE 10 MG TABLET PO ONE ×2 (05:00→09:00)
[2018-12-09] MEDS: PANTOPRAZOLE 40 MG TABLET.DR. PO SCH (07:30)
[2018-12-09] MEDS: IPRATRPIUM/ALBUTEROL 0.5/2.5MG 3 ML NEBU. NEB SCH ×4 (07:42→20:39)
[2018-12-09] MEDS ORDERED: diphenhydrAMINE 50 MG/ML VIAL IVP ONE (09:00)
[2018-12-09] MEDS: GABAPENTIN 400 MG CAPSULE. PO SCH ×4 (09:00→20:58)
[2018-12-09] MEDS: POLYETHYLENE GLYCOL 3350 17 GM PACKET. PO SCH (09:00)
[2018-12-09] MEDS ORDERED: IOHEXOL 240 MG/ML 50ML VIAL. ONE (09:21)
[2018-12-09] MEDS ORDERED: LIDOCAINE 1% Multi-Dose 20 ML VIAL. ONE (09:21)
[2018-12-09] MEDS ORDERED: LIDOCAINE WITH 8.4% SOD BICARB 3 ML DISP.SYRIN. ONE (09:21)
--- NOTE | 2018-12-09 09:23 | PDOC ---
SUBJECTIVE Subjective S: pain is OK, pending procedure, had a BM O: Physical exam: Gen.: Elderly female on oxygen, resting in bed Psychiatric: Pleasant mood and affect Labs: CEA of 17 and CA-19-9 of [id number], cbc ok Rads: Prior scan showed evidence of colitis, bilateral liver metastasis, as well as recent scan showed bilateral lower extremity DVT and high probability VQ scan Assessment and Plan: 63-year-old female with metastatic pancreas cancer to the liver, bilateral lower extremity DVT, PE, and history of ulcerative colitis Lower extremity DVT: improving on anticoagulation PE: She will continue apixaban 10 mg by mouth twice a day �7 days and then can transition to 5 mg by mouth twice a day indefinitely, after heparin drip for procedure is complete Metastatic pancreas cancer: We'll plan palliative gemcitabine as soon as she has some improvement post clot, pending today port and celiac procedure, afterwards can stop heparin drip, IR assistance apprec, can restart apixaban 10 mg po bid when safe post procedure, apprec pall care assistance, defer pain mgmt to Dr Mobley at the moment Ao Insuff: per cardiology Deconditioned: would like to see her walking prior to starting palliative chemotherapy Thank you kindly and please do not hesitate to call with questions, I will return after next wk but Dr Burnett will be avail for ?s in the interim. OBJECTIVE Vital Signs Vital Signs Date Time Temp Pulse Resp B/P (MAP) Pulse Ox O2 Delivery O2 Flow Rate FiO2 12/09/18 07:42 92 Nasal Cannula 6.0 12/09/18 07:00 97.2 103 20 133/66 (88) 94 Nasal Cannula 4.0 97.2 12/09/18 03:00 99.5 101 12 125/58 (80) 92 Nasal Cannula 4.0 99.5 12/08/18 23:00 100.4 114 12 165/65 (98) 94 Nasal Cannula 4.0 100.4 12/08/18 21:57 91 Nasal Cannula 5.0 12/08/18 20:20 93 Nasal Cannula 5.0 12/08/18 20:17 93 Nasal Cannula 5.0 12/08/18 20:00 Nasal Cannula 5.0 12/08/18 19:43 92 Nasal Cannula 5.0 12/08/18 19:11 92 Nasal Cannula 5.0 12/08/18 19:00 99.1 100 12 134/80 (98) 96 Nasal Cannula 4.0 99.1 12/08/18 16:26 94 Nasal Cannula 5.0 12/08/18 14:36 98.7 89 20 110/52 (71) 98 Nasal Cannula 4.0 98.7 12/08/18 14:15 Nasal Cannula 5.0 12/08/18 12:38 Nasal Cannula 4.0 12/08/18 11:00 98.0 101 18 147/61 (89) 94 Nasal Cannula 4.0 98.0 12/08/18 10:52 20 Nasal Cannula 4.0 I & O Intake and Output 12/09/18 06:59 Intake Total 1404 ml Output Total 400 ml Balance 1004 ml Intake Oral 540 ml IV Total 864 ml Output Urine Total 400 ml # Voids 2 # Bowel Movements 2 COMMENT Lab Laboratory Tests Test 12/09/18 03:00 12/09/18 08:30 White Blood Count 11.0 x10^3/uL (4.0-11.0) Red Blood Count 3.03 x10^6/uL (3.50-5.40) Hemoglobin 9.5 g/dL (12.0-15.5) Hematocrit 28.3 % (36.0-47.0) Mean Corpuscular Volume 94 fL (79-100) Mean Corpuscular Hemoglobin 31 pg (25-35) Mean Corpuscular Hemoglobin Concent 33 g/dL (31-37) Red Cell Distribution Width 13.6 % (11.5-14.5) Platelet Count 353 x10^3/uL (140-400) Neutrophils (%) (Auto) 90 % (31-73) Lymphocytes (%) (Auto) 4 % (24-48) Monocytes (%) (Auto) 4 % (0-9) Eosinophils (%) (Auto) 1 % (0-3) Basophils (%) (Auto) 0 % (0-3) Neutrophils # (Auto) 9.9 x10^3/uL (1.8-7.7) Lymphocytes # (Auto) 0.4 x10^3/uL (1.0-4.8) Monocytes # (Auto) 0.5 x10^3/uL (0.0-1.1) Eosinophils # (Auto) 0.1 x10^3/uL (0.0-0.7) Basophils # (Auto) 0.0 x10^3/uL (0.0-0.2) Segmented Neutrophils % 91 % (35-66) Band Neutrophils % 1 % (0-9) Lymphocytes % 3 % (24-48) Monocytes % 4 % (0-10) Eosinophils % 1 % (0-5) Toxic Granulation Slight Platelet Estimate Adequate (ADEQUATE) Hypochromasia Slight Basophilic Stippling Present Anisocytosis Slight Sodium Level 136 mmol/L (136-145) Potassium Level 5.0 mmol/L (3.5-5.1) Chloride Level 100 mmol/L (98-107) Carbon Dioxide Level 29 mmol/L (21-32) Anion Gap 7 (6-14) Blood Urea Nitrogen 9 mg/dL (7-20) Creatinine 1.0 mg/dL (0.6-1.0) Estimated GFR (Cockcroft-Gault) 55.8 Glucose Level 144 mg/dL (70-99) Calcium Level 9.8 mg/dL (8.5-10.1) Activated Partial Thromboplast Time 32 SEC (24-38) Nutrition Consultation Dietary Evaluation: Recommendations by RD: Increase Calorie Intake, Protein supplementation Comments: Continue w/cardiac diet, will add GI soft REC Ensure prn/between meals Expected Outcomes/Goals: PO intake to meet >75% est needs Malnutrition Findings: Food and Nutrition Intake (Sev: <50% est energy req 5days Weight Status: Appropriate RANDALL GARCIA MD Dec 09, 2018 09:23
[2018-12-09] MEDS ORDERED: LIDOCAINE 1%/EPI 1:100,000 20 ML VIAL. ONE (10:14)
--- NOTE | 2018-12-09 10:50 | PDOC ---
[employer] PROGRESS NOTE Chief Complaint Chief Complaint Pulmonary Embolism B/L DVT of lower extremities Acute on chronic respiratory failure Pancreatic Cancer Aortic Insufficiency COPD Elevated Troponin History of Present Illness History of Present Illness 9�13�2019 Patient seen and examined Discussed with her 2 children Dave and her sister Discussed with RN Chart reviewed Patient going for celiac block today 12/08/18 Pt seen/examined at bedside in [facility] DW Dr. Anders regarding celiac block Pt is on NC 4.0L and sating at 94% DW RN Chart reviewed 12/07/18 Pt seen and examined lying in bed in [facility] on O2 nasal canula Pt fell this morning (per RN) Will be getting port tomorrow; also getting celiac block DW RN Chart reviewed 12/06/18 Pt seen and examined lying in bed in [facility] DW RN DW case management coordinator Chart reviewed Vitals/I&O Vitals/I&O: Vital Signs Date Time Temp Pulse Resp B/P (MAP) Pulse Ox O2 Delivery O2 Flow Rate FiO2 12/09/18 08:00 Nasal Cannula 5.0 12/09/18 07:42 92 12/09/18 07:00 97.2 103 20 133/66 (88) 97.2 I & O 12/08/18 12/08/18 12/09/18 14:59 22:59 06:59 Intake Total 250 ml 290 ml 864 ml Output Total 400 ml Balance -150 ml 290 ml 864 ml Physical Exam General: Alert, Oriented X3, Cooperative, No acute distress Heart: Regular rate (SR/ST), Normal S1, Normal S2, Other (S3/3/6 diastolic murmur to erbs) Lungs: Other (dIminished) Abdomen: Soft, No tenderness Extremities: No cyanosis, No edema, Other (trace LE, hot to touch skin to bilateral LE) Skin: No rashes, No breakdown, No significant lesion Labs Labs: Laboratory Tests Test 12/09/18 03:00 12/09/18 08:30 White Blood Count 11.0 x10^3/uL (4.0-11.0) Red Blood Count 3.03 x10^6/uL (3.50-5.40) Hemoglobin 9.5 g/dL (12.0-15.5) Hematocrit 28.3 % (36.0-47.0) Mean Corpuscular Volume 94 fL (79-100) Mean Corpuscular Hemoglobin 31 pg (25-35) Mean Corpuscular Hemoglobin Concent 33 g/dL (31-37) Red Cell Distribution Width 13.6 % (11.5-14.5) Platelet Count 353 x10^3/uL (140-400) Neutrophils (%) (Auto) 90 % (31-73) Lymphocytes (%) (Auto) 4 % (24-48) Monocytes (%) (Auto) 4 % (0-9) Eosinophils (%) (Auto) 1 % (0-3) Basophils (%) (Auto) 0 % (0-3) Neutrophils # (Auto) 9.9 x10^3/uL (1.8-7.7) Lymphocytes # (Auto) 0.4 x10^3/uL (1.0-4.8) Monocytes # (Auto) 0.5 x10^3/uL (0.0-1.1) Eosinophils # (Auto) 0.1 x10^3/uL (0.0-0.7) Basophils # (Auto) 0.0 x10^3/uL (0.0-0.2) Segmented Neutrophils % 91 % (35-66) Band Neutrophils % 1 % (0-9) Lymphocytes % 3 % (24-48) Monocytes % 4 % (0-10) Eosinophils % 1 % (0-5) Toxic Granulation Slight Platelet Estimate Adequate (ADEQUATE) Hypochromasia Slight Basophilic Stippling Present Anisocytosis Slight Sodium Level 136 mmol/L (136-145) Potassium Level 5.0 mmol/L (3.5-5.1) Chloride Level 100 mmol/L (98-107) Carbon Dioxide Level 29 mmol/L (21-32) Anion Gap 7 (6-14) Blood Urea Nitrogen 9 mg/dL (7-20) Creatinine 1.0 mg/dL (0.6-1.0) Estimated GFR (Cockcroft-Gault) 55.8 Glucose Level 144 mg/dL (70-99) Calcium Level 9.8 mg/dL (8.5-10.1) Activated Partial Thromboplast Time 32 SEC (24-38) Review of Systems Review of Systems: Complains of pain Assessment and Plan Assessmemt and Plan Problems Medical Problems: (1) Elevated d-dimer Status: Acute (2) Elevated troponin Status: Acute (3) Hypoxia Status: Acute (4) Pancreatic cancer Status: Acute (5) Shortness of breath Status: Acute Assessment Pulmonary Embolism B/L DVT of lower extremities Acute on chronic respiratory failure Pancreatic Cancer Aortic Insufficiency COPD Elevated Troponin Plan Celiac block today Follow up for port placement and chemotherapy at later date DVT prophylaxis PT/OT Home meds Full code Consulted Pain management Hold diet lotted for now as she tends to desat Appreciate subspecialty input Long-term prognosis is guarded at best Discharge to SNU soon? Total time 31 min Comment Review of Relevant I have reviewed the following items les (where applicable) has been applied. Medications: Current Medications Medications (Trade) Dose Ordered Sig/Dena Route PRN Reason Start Time Stop Time Status Last Admin Dose Admin Hydromorphone HCl (Dilaudid) 1 mg PRN Q2HR PRN IV SEVERE PAIN 7-10, 2ND CHOICE 12/08/18 12:15 12/09/18 08:27 DC 12/08/18 20:20 Prednisone (Prednisone) 50 mg 1X ONCE PO 12/08/18 22:00 12/08/18 22:01 DC 12/08/18 21:56 Prednisone (Prednisone) 50 mg 1X ONCE PO 12/09/18 05:00 12/09/18 05:01 DC 12/09/18 05:44 Prednisone (Prednisone) 50 mg 1X ONCE PO 12/09/18 09:00 12/09/18 09:01 DC 12/09/18 09:20 Ondansetron HCl (Zofran) 4 mg PRN Q6HRS PRN IV NAUSEA/VOMITING 1ST CHOICE 12/08/18 22:30 12/08/18 22:39 PHUC MILLER III DO Dec 09, 2018 10:50
--- NOTE | 2018-12-09 11:08 | NUR ---
SS following up with discharge planning. PT recommending home healthcare at discharge. Pt agreeable to [facility], ; fax [phone], at discharge. Pt is currently requiring oxygen. SS will continue to follow for discharge planning.
[2018-12-09] MEDS ORDERED: MIDAZOLAM HCL/PF 5 MG/5 ML VIAL. ONE (11:47)
[2018-12-09] MEDS ORDERED: fentaNYL PF VIAL 250 MCG/5 ML VIAL ONE (11:48)
--- NOTE | 2018-12-09 11:52 | PDOC ---
PULMONARY PROGRESS NOTES Subjective last night developed resp depression due to IV dilaudid fully awake now sob better, no cp, has occ cough, Vitals Vital Signs Date Time Temp Pulse Resp B/P (MAP) Pulse Ox O2 Delivery O2 Flow Rate FiO2 12/09/18 11:00 98.8 96 20 127/59 (81) 93 Nasal Cannula 4.0 98.8 ROS: No Nausea General: Alert, No acute distress HEENT: Other (nc at perrl) Lungs: Other (dIminished) Cardiovascular: S1, S2 Abdomen: Soft, Non-tender Neuro Exam: Alert Skin: Warm Labs Laboratory Tests Test 12/07/18 16:21 12/07/18 22:40 12/08/18 09:20 12/09/18 03:00 Activated Partial Thromboplast Time 44 SEC (24-38) 48 SEC (24-38) 41 SEC (24-38) White Blood Count 11.9 x10^3/uL (4.0-11.0) 11.0 x10^3/uL (4.0-11.0) Red Blood Count 3.29 x10^6/uL (3.50-5.40) 3.03 x10^6/uL (3.50-5.40) Hemoglobin 10.2 g/dL (12.0-15.5) 9.5 g/dL (12.0-15.5) Hematocrit 31.0 % (36.0-47.0) 28.3 % (36.0-47.0) Mean Corpuscular Volume 94 fL (79-100) 94 fL (79-100) Mean Corpuscular Hemoglobin 31 pg (25-35) 31 pg (25-35) Mean Corpuscular Hemoglobin Concent 33 g/dL (31-37) 33 g/dL (31-37) Red Cell Distribution Width 14.2 % (11.5-14.5) 13.6 % (11.5-14.5) Platelet Count 410 x10^3/uL (140-400) 353 x10^3/uL (140-400) Neutrophils (%) (Auto) 75 % (31-73) 90 % (31-73) Lymphocytes (%) (Auto) 12 % (24-48) 4 % (24-48) Monocytes (%) (Auto) 9 % (0-9) 4 % (0-9) Eosinophils (%) (Auto) 5 % (0-3) 1 % (0-3) Basophils (%) (Auto) 0 % (0-3) 0 % (0-3) Neutrophils # (Auto) 8.8 x10^3/uL (1.8-7.7) 9.9 x10^3/uL (1.8-7.7) Lymphocytes # (Auto) 1.4 x10^3/uL (1.0-4.8) 0.4 x10^3/uL (1.0-4.8) Monocytes # (Auto) 1.0 x10^3/uL (0.0-1.1) 0.5 x10^3/uL (0.0-1.1) Eosinophils # (Auto) 0.5 x10^3/uL (0.0-0.7) 0.1 x10^3/uL (0.0-0.7) Basophils # (Auto) 0.0 x10^3/uL (0.0-0.2) 0.0 x10^3/uL (0.0-0.2) Sodium Level 137 mmol/L (136-145) 136 mmol/L (136-145) Potassium Level 4.7 mmol/L (3.5-5.1) 5.0 mmol/L (3.5-5.1) Chloride Level 98 mmol/L (98-107) 100 mmol/L (98-107) Carbon Dioxide Level 28 mmol/L (21-32) 29 mmol/L (21-32) Anion Gap 11 (6-14) 7 (6-14) Blood Urea Nitrogen 9 mg/dL (7-20) 9 mg/dL (7-20) Creatinine 1.1 mg/dL (0.6-1.0) 1.0 mg/dL (0.6-1.0) Estimated GFR (Cockcroft-Gault) 50.0 55.8 Glucose Level 122 mg/dL (70-99) 144 mg/dL (70-99) Calcium Level 10.2 mg/dL (8.5-10.1) 9.8 mg/dL (8.5-10.1) Segmented Neutrophils % 91 % (35-66) Band Neutrophils % 1 % (0-9) Lymphocytes % 3 % (24-48) Monocytes % 4 % (0-10) Eosinophils % 1 % (0-5) Toxic Granulation Slight Platelet Estimate Adequate (ADEQUATE) Hypochromasia Slight Basophilic Stippling Present Anisocytosis Slight Test 12/09/18 08:30 Activated Partial Thromboplast Time 32 SEC (24-38) Laboratory Tests Test 12/09/18 03:00 12/09/18 08:30 White Blood Count 11.0 x10^3/uL (4.0-11.0) Red Blood Count 3.03 x10^6/uL (3.50-5.40) Hemoglobin 9.5 g/dL (12.0-15.5) Hematocrit 28.3 % (36.0-47.0) Mean Corpuscular Volume 94 fL (79-100) Mean Corpuscular Hemoglobin 31 pg (25-35) Mean Corpuscular Hemoglobin Concent 33 g/dL (31-37) Red Cell Distribution Width 13.6 % (11.5-14.5) Platelet Count 353 x10^3/uL (140-400) Neutrophils (%) (Auto) 90 % (31-73) Lymphocytes (%) (Auto) 4 % (24-48) Monocytes (%) (Auto) 4 % (0-9) Eosinophils (%) (Auto) 1 % (0-3) Basophils (%) (Auto) 0 % (0-3) Neutrophils # (Auto) 9.9 x10^3/uL (1.8-7.7) Lymphocytes # (Auto) 0.4 x10^3/uL (1.0-4.8) Monocytes # (Auto) 0.5 x10^3/uL (0.0-1.1) Eosinophils # (Auto) 0.1 x10^3/uL (0.0-0.7) Basophils # (Auto) 0.0 x10^3/uL (0.0-0.2) Segmented Neutrophils % 91 % (35-66) Band Neutrophils % 1 % (0-9) Lymphocytes % 3 % (24-48) Monocytes % 4 % (0-10) Eosinophils % 1 % (0-5) Toxic Granulation Slight Platelet Estimate Adequate (ADEQUATE) Hypochromasia Slight Basophilic Stippling Present Anisocytosis Slight Sodium Level 136 mmol/L (136-145) Potassium Level 5.0 mmol/L (3.5-5.1) Chloride Level 100 mmol/L (98-107) Carbon Dioxide Level 29 mmol/L (21-32) Anion Gap 7 (6-14) Blood Urea Nitrogen 9 mg/dL (7-20) Creatinine 1.0 mg/dL (0.6-1.0) Estimated GFR (Cockcroft-Gault) 55.8 Glucose Level 144 mg/dL (70-99) Calcium Level 9.8 mg/dL (8.5-10.1) Activated Partial Thromboplast Time 32 SEC (24-38) Medications Active Scripts Medications Dose Route/Sig Max Daily Dose Days Date Category Narcan (Naloxone HCl) 4 Mg [place] 4 Mg NS PRN DAILY PRN 11/28/18 Rx Polyethylene Glycol 3350 17 Gm Powd.pack 17 Gm PO DAILY 11/28/18 Rx FENTANYL 12mcg/hr (Fentanyl) 1 Each Patch.td72 1 Patch TD Q3DAYS 11/28/18 Rx Pantoprazole Sodium (Pantoprazole Sodium) 40 Mg Tablet.dr 40 Mg PO DAILYAC 11/28/18 Rx Aspirin 81 Mg Tab.chew 1 Tab PO DAILYWBKFT 11/22/18 Reported Amitriptyline Hcl 100 Mg Tablet 2.5 Tab PO QHS 05/11/18 Reported Hydrocodone-Apap 10-325 (Hydrocodone Bit/Acetaminophen) 1 Tab Tablet 1 Tab PO PRN Q4HRS PRN 05/11/18 Reported Gabapentin 800 Mg Tablet 800 Mg PO QID 05/11/18 Reported Comments echo The left ventricular systolic function is normal and the ejection fraction is within normal range. The Ejection Fraction is 60-65%. There is normal LV segmental wall motion. The right ventricle is mildly to moderately dilated. Doppler and Color Flow revealed moderate aortic regurgitation. (Cannot rule out severe AI based on PHT, consider BRIA) Impression . IMPRESSION: 1. Acute pulmonary embolism with multiple bilateral segmental and subsegmental mismatch defects along with acute extensive deep vein thrombosis. The risk factor is underlying pancreatic cancer, presenting as hypercoagulable state. 2. Acute on chronic hypoxic respiratory failure secondary to acute pulmonary embolism and underlying chronic obstructive pulmonary disease. 3. Recently diagnosed pancreatic cancer, not been on treatment yet. 4. Mildly increased troponin level, suspect secondary to RV ischemia. 5. Hemodynamically stable, did not require TPA. 6. Suspected underlying chronic obstructive pulmonary disease, could be severe. 7. chronic pain syndrome Plan . 1. Continue with present oxygen. wean to keep sats @ 94%. will need another 6 min walk to assess home O2 needs at dc 2. echo reviewed, severe AI cardiology on case 3. slowly improving 4. Oxygen/ Nebs 5. Port and celiac block today. ok with bridging with heparin drip , re-start Eliquis post procedure 6. Initiate pancreatic cancer treatment as OP 7. The patient will require lifelong anticoagulation due to underlying malignancy. 8. Continue bronchodilators. 9. minimize narcotics discussed w pt/ RN/ RICCI Mccray MD Dec 09, 2018 11:52
[2018-12-09] MEDS ORDERED: diphenhydrAMINE 50 MG/ML VIAL ONE (12:01)
[2018-12-09] MEDS ORDERED: ceFAZolin 1GM IVPB FOR OMNI 100 ML IV ONE (13:03)
[2018-12-09] MEDS ORDERED: LIDOCAINE 1%/EPI 1:100,000 20 ML VIAL. INJ ONE (13:15)
[2018-12-09] MEDS ORDERED: MIDAZOLAM HCL/PF 5 MG/5 ML VIAL. IV ONE (13:15)
[2018-12-09] MEDS ORDERED: IOHEXOL 240 MG/ML 50ML VIAL. IV ONE (13:15)
[2018-12-09] MEDS ORDERED: LIDOCAINE 2% 20 ML VIAL. IJ ONE (13:15)
[2018-12-09] MEDS ORDERED: LIDOCAINE WITH 8.4% SOD BICARB 3 ML DISP.SYRIN. IJ ONE (13:15)
[2018-12-09] MEDS ORDERED: fentaNYL PF VIAL 250 MCG/5 ML VIAL IV ONE (13:15)
[2018-12-09] MEDS ORDERED: LIDOCAINE 1% Multi-Dose 20 ML VIAL. INJ ONE (13:45)
[2018-12-09] MEDS: fentaNYL PF VIAL 100 MCG/2 ML VIAL IV PRN ×2 (14:16→20:57)
--- NOTE | 2018-12-09 15:07 | NUR ---
Wound Care: Consult to eval and treat pressure ulcer to the back of R ear. ST III PU observed, slough covered. Cleansed and covered with nonadherent foam dressing and tape. O2 tubing secured on top of head to avoid pressure to area. No other open areas noted on head to toe inspection, education provided on PU prevention. Pt is able to self turn. Follow up 12/16/18
--- NOTE | 2018-12-09 15:07 | PDOC ---
Provider Note Provider Note IR note Celiac plexus neurolysis and placement of port today. No immediate complications. Patient reports significant reduction in pain. Recommend holding anticoagulation for 6-8 hours before resuming heparin, without bolus. Would wait until tomorrow for oral anticoagulation if possible. Port is ready for immediate use. GERALD PEREZ MD Dec 09, 2018 15:07
[2018-12-09] MEDS ORDERED: ETHYL ALCOHOL 98% 5 ML VIAL. IJ ONE (15:15)
--- NOTE | 2018-12-09 15:53 | RAD ---
Procedure: Ultrasound and fluoroscopically guided placement of right internal jugular power port.. 12/09/2018 1:49 PM Clinical Indication: Chemotherapy access. Sedation: Conscious sedation was administered for 30 minutes. The patient was monitored by a qualified independent observer throughout the time of sedation. Please refer to the medical record for exact doses of medications utilized to achieve moderate sedation. Fluoroscopy time: 0.5 minutes Dose area product: 1 Gycm2 Consent: The procedure was explained in its entirety to the patient or the patients designated product representative by a member of the treatment team, including a discussion of the risks, benefits and commonly accepted alternatives to the procedure, as well as the expected consequences of no therapy whatsoever. Discussion of the risks included, but was not limited to, those that are most frequent and those that are rare but possibly severe or life-threatening, as well as the possibility of unforeseen complications. Technique and Findings: All elements of maximal sterile barrier technique including the use of a cap, mask, sterile gown, sterile gloves, large sterile sheet, appropriate hand hygiene, and 2% chlorhexidine for cutaneous antisepsis (or acceptable alternative antiseptic per current guidelines) were followed for this procedure. Following informed consent, and a timeout procedure, the patient was prepped and draped in the usual sterile fashion. Ultrasound interrogation of the right neck revealed patency and compressibility of the right internal jugular vein. A 21-gauge micropuncture was then used to gain access to this vein under ultrasound guidance. A hard copy ultrasound image was recorded. The needle was exchanged over a wire for a sheath. A 1 inch incision was made several centimeters inferior to the venotomy site. A catheter was tunneled from this site dermatotomy site in the neck. Catheter was advanced through peel-away sheath such that its tip was in the proximal right atrium with the patient supine. The catheter was trimmed to length and connected to the port reservoir. The port was found to flush and aspirate normally. The wound was closed in layers using 4-0 Vicryl suture. Sterile dressings were applied. Impression: Successful ultrasound and fluoroscopically guided placement of a right internal jugular PowerPort
[2018-12-09] MEDS: fentaNYL 25MCG/HR PATCH 1 PATCH PATCH.TD72 TD SCH (16:32)
[2018-12-09] MEDS: HYDROcodone/APAP 10/325 1 TAB TABLET PO PRN (18:05)
[2018-12-09] MEDS: guaiFENesin DM 200MG/20MG 10 ML SYRUP PO PRN (18:10)
[2018-12-09] MEDS: APIXABAN 5 MG TABLET. PO SCH (19:15)
[2018-12-09] MEDS: ATORVASTATIN CALCIUM 10 MG TABLET. PO SCH (20:58)
[2018-12-09] MEDS: AMITRIPTYLINE HCL 25 MG TABLET. PO SCH (20:58)
[2018-12-10 03:12] VITALS: BP 103/54
[2018-12-10 05:20] LABS: BASO % 0 % (0-3); EOS % 0 % (0-3); HEMATOCRIT 25.7 % (36.0-47.0); HEMOGLOBIN 8.4 g/dL (12.0-15.5); LYMPH # 0.2 x10^3/uL (1.0-4.8); LYMPH % 2 % (24-48); MEAN CORPUSCULAR HEMOGLOBIN 30 pg (25-35); MEAN CORPUSCULAR HGB CONC 33 g/dL (31-37); MEAN CORPUSCULAR VOLUME 93 fL (79-100); MONO # 0.7 x10^3/uL (0.0-1.1); MONO % 5 % (0-9); NEUT # 12.2 x10^3/uL (1.8-7.7); NEUT % 93 % (31-73); PLATELET COUNT 266 x10^3/uL (140-400); RED BLOOD COUNT 2.76 x10^6/uL (3.50-5.40); RED CELL DISTRIBUTION WIDTH 13.4 % (11.5-14.5); WHITE BLOOD COUNT 13.2 x10^3/uL (4.0-11.0)
[2018-12-10 05:30] LABS: CALCIUM 9.4 mg/dL (8.5-10.1); CREATININE 1.1 mg/dL (0.6-1.0); POTASSIUM 4.2 mmol/L (3.5-5.1)
[2018-12-10 07:00] VITALS: BP 126/62
[2018-12-10] MEDS: IPRATRPIUM/ALBUTEROL 0.5/2.5MG 3 ML NEBU. NEB SCH ×4 (08:05→18:30)
[2018-12-10] MEDS: POLYETHYLENE GLYCOL 3350 17 GM PACKET. PO SCH (08:36)
[2018-12-10] MEDS: GABAPENTIN 400 MG CAPSULE. PO SCH ×4 (08:36→19:50)
[2018-12-10] MEDS: MULTIVITAMIN with MINERAL TABLET. PO SCH (08:36)
[2018-12-10] MEDS: APIXABAN 5 MG TABLET. PO SCH ×2 (08:36→19:50)
[2018-12-10] MEDS: ASCORBIC ACID 500 MG TABLET PO SCH (08:36)
[2018-12-10] MEDS: HYDROcodone/APAP 10/325 1 TAB TABLET PO PRN ×2 (08:36→20:01)
[2018-12-10] MEDS: PANTOPRAZOLE 40 MG TABLET.DR. PO SCH (08:37)
--- NOTE | 2018-12-10 10:35 | PDOC ---
PULMONARY PROGRESS NOTES Subjective resting in bed on N/C Denies SOB Vitals Vital Signs Date Time Temp Pulse Resp B/P (MAP) Pulse Ox O2 Delivery O2 Flow Rate FiO2 12/10/18 10:03 96 Nasal Cannula 4.0 12/10/18 08:37 18 12/10/18 07:00 98.9 116 126/62 (83) 98.9 ROS: No Nausea General: Alert, No acute distress HEENT: Other (nc at perrl) Lungs: Other (Diminished throughtout) Cardiovascular: S1, S2 Abdomen: Soft, Non-tender Neuro Exam: Alert Skin: Warm Labs Laboratory Tests Test 12/09/18 03:00 12/09/18 08:30 12/10/18 05:00 White Blood Count 11.0 x10^3/uL (4.0-11.0) 13.2 x10^3/uL (4.0-11.0) Red Blood Count 3.03 x10^6/uL (3.50-5.40) 2.76 x10^6/uL (3.50-5.40) Hemoglobin 9.5 g/dL (12.0-15.5) 8.4 g/dL (12.0-15.5) Hematocrit 28.3 % (36.0-47.0) 25.7 % (36.0-47.0) Mean Corpuscular Volume 94 fL (79-100) 93 fL (79-100) Mean Corpuscular Hemoglobin 31 pg (25-35) 30 pg (25-35) Mean Corpuscular Hemoglobin Concent 33 g/dL (31-37) 33 g/dL (31-37) Red Cell Distribution Width 13.6 % (11.5-14.5) 13.4 % (11.5-14.5) Platelet Count 353 x10^3/uL (140-400) 266 x10^3/uL (140-400) Neutrophils (%) (Auto) 90 % (31-73) 93 % (31-73) Lymphocytes (%) (Auto) 4 % (24-48) 2 % (24-48) Monocytes (%) (Auto) 4 % (0-9) 5 % (0-9) Eosinophils (%) (Auto) 1 % (0-3) 0 % (0-3) Basophils (%) (Auto) 0 % (0-3) 0 % (0-3) Neutrophils # (Auto) 9.9 x10^3/uL (1.8-7.7) 12.2 x10^3/uL (1.8-7.7) Lymphocytes # (Auto) 0.4 x10^3/uL (1.0-4.8) 0.2 x10^3/uL (1.0-4.8) Monocytes # (Auto) 0.5 x10^3/uL (0.0-1.1) 0.7 x10^3/uL (0.0-1.1) Eosinophils # (Auto) 0.1 x10^3/uL (0.0-0.7) 0.0 x10^3/uL (0.0-0.7) Basophils # (Auto) 0.0 x10^3/uL (0.0-0.2) 0.0 x10^3/uL (0.0-0.2) Segmented Neutrophils % 91 % (35-66) Band Neutrophils % 1 % (0-9) Lymphocytes % 3 % (24-48) Monocytes % 4 % (0-10) Eosinophils % 1 % (0-5) Toxic Granulation Slight Platelet Estimate Adequate (ADEQUATE) Hypochromasia Slight Basophilic Stippling Present Anisocytosis Slight Sodium Level 136 mmol/L (136-145) 135 mmol/L (136-145) Potassium Level 5.0 mmol/L (3.5-5.1) 4.2 mmol/L (3.5-5.1) Chloride Level 100 mmol/L (98-107) 99 mmol/L (98-107) Carbon Dioxide Level 29 mmol/L (21-32) 30 mmol/L (21-32) Anion Gap 7 (6-14) 6 (6-14) Blood Urea Nitrogen 9 mg/dL (7-20) 16 mg/dL (7-20) Creatinine 1.0 mg/dL (0.6-1.0) 1.1 mg/dL (0.6-1.0) Estimated GFR (Cockcroft-Gault) 55.8 50.0 Glucose Level 144 mg/dL (70-99) 123 mg/dL (70-99) Calcium Level 9.8 mg/dL (8.5-10.1) 9.4 mg/dL (8.5-10.1) Activated Partial Thromboplast Time 32 SEC (24-38) Laboratory Tests Test 12/10/18 05:00 White Blood Count 13.2 x10^3/uL (4.0-11.0) Red Blood Count 2.76 x10^6/uL (3.50-5.40) Hemoglobin 8.4 g/dL (12.0-15.5) Hematocrit 25.7 % (36.0-47.0) Mean Corpuscular Volume 93 fL (79-100) Mean Corpuscular Hemoglobin 30 pg (25-35) Mean Corpuscular Hemoglobin Concent 33 g/dL (31-37) Red Cell Distribution Width 13.4 % (11.5-14.5) Platelet Count 266 x10^3/uL (140-400) Neutrophils (%) (Auto) 93 % (31-73) Lymphocytes (%) (Auto) 2 % (24-48) Monocytes (%) (Auto) 5 % (0-9) Eosinophils (%) (Auto) 0 % (0-3) Basophils (%) (Auto) 0 % (0-3) Neutrophils # (Auto) 12.2 x10^3/uL (1.8-7.7) Lymphocytes # (Auto) 0.2 x10^3/uL (1.0-4.8) Monocytes # (Auto) 0.7 x10^3/uL (0.0-1.1) Eosinophils # (Auto) 0.0 x10^3/uL (0.0-0.7) Basophils # (Auto) 0.0 x10^3/uL (0.0-0.2) Sodium Level 135 mmol/L (136-145) Potassium Level 4.2 mmol/L (3.5-5.1) Chloride Level 99 mmol/L (98-107) Carbon Dioxide Level 30 mmol/L (21-32) Anion Gap 6 (6-14) Blood Urea Nitrogen 16 mg/dL (7-20) Creatinine 1.1 mg/dL (0.6-1.0) Estimated GFR (Cockcroft-Gault) 50.0 Glucose Level 123 mg/dL (70-99) Calcium Level 9.4 mg/dL (8.5-10.1) Medications Active Scripts Medications Dose Route/Sig Max Daily Dose Days Date Category Narcan (Naloxone HCl) 4 Mg [place] 4 Mg NS PRN DAILY PRN 30 11/28/18 Rx Polyethylene Glycol 3350 17 Gm Powd.pack 17 Gm PO DAILY 11/28/18 Rx FENTANYL 12mcg/hr (Fentanyl) 1 Each Patch.td72 1 Patch TD Q3DAYS 30 11/28/18 Rx Pantoprazole Sodium (Pantoprazole Sodium) 40 Mg Tablet.dr 40 Mg PO DAILYAC 11/28/18 Rx Aspirin 81 Mg Tab.chew 1 Tab PO DAILYWBKFT 11/22/18 Reported Amitriptyline Hcl 100 Mg Tablet 2.5 Tab PO QHS 05/11/18 Reported Hydrocodone-Apap 10-325 (Hydrocodone Bit/Acetaminophen) 1 Tab Tablet 1 Tab PO PRN Q4HRS PRN 05/11/18 Reported Gabapentin 800 Mg Tablet 800 Mg PO QID 05/11/18 Reported Impression . 1. Acute pulmonary embolism with multiple bilateral segmental and subsegmental mismatch defects along with acute extensive deep vein thrombosis likely 2/2 underlying pancreatic cancer, presenting as hypercoagulable state. 2. Acute on chronic hypoxic respiratory failure secondary to acute pulmonary embolism and underlying chronic obstructive pulmonary disease. 3. Recently diagnosed pancreatic cancer, not been on treatment yet. 4. Mildly increased troponin level, suspect secondary to RV ischemia. 5. Hemodynamically stable 6. Suspected underlying chronic obstructive pulmonary disease, could be severe. 7. chronic pain syndrome Plan . 1. Continue with present oxygen. wean to keep sats @ 94%. will need another 6 min walk to assess home O2 needs at dc 2. slowly improving 3. Oxygen/ Nebs 4. Cont. eliquis 5. Initiate pancreatic cancer treatment as OP 6. The patient will require lifelong anticoagulation due to underlying malignancy. 7. OOB as tolerated 8. Discussed with RICCI COFFMAN MD Dec 10, 2018 10:35
[2018-12-10 11:00] VITALS: BP 124/59
--- NOTE | 2018-12-10 11:11 | RAD ---
CHEST AP ONLY History: Shortness of breath Comparison: December 01, 2018 Findings: Single view of the chest is submitted. There is now a right internal jugular port catheter with the tip in the superior vena cava. Heart size is stable. There is again mild left base airspace opacity, may be due to mild atelectasis. Degree of mild interstitial opacity bilaterally is similar. There is no new significant pleural fluid or pneumothorax. Impression: 1. There is degree of mild interstitial opacity bilaterally although stable which may be due to mild interstitial infiltrate or edema, also mild left base opacity probable atelectasis. Electronically signed by: Kin Mullins MD (12/10/2018 11:08 AM) [id number]
--- NOTE | 2018-12-10 11:26 | PDOC ---
[employer] PROGRESS NOTE Chief Complaint Chief Complaint Pulmonary Embolism B/L DVT of lower extremities Acute on chronic respiratory failure Pancreatic Cancer Aortic Insufficiency COPD Elevated Troponin History of Present Illness History of Present Illness 12/10/18 Pt seen/examined at bedside Pt reports that she feels like her pain has improved since her celiac block Chart Reviewed ERNESTINA RN [id number]�13�2019 Patient seen and examined Discussed with her 2 children Ramila and Star and her sister Discussed with RN Chart reviewed Patient going for celiac block today 12/08/18 Pt seen/examined at bedside in [facility] ERNESTINA Anders regarding celiac block Pt is on NC 4.0L and sating at 94% DW RN Chart reviewed 12/07/18 Pt seen and examined lying in bed in [facility] on O2 nasal canula Pt fell this morning (per RN) Will be getting port tomorrow; also getting celiac block DW RN Chart reviewed 12/06/18 Pt seen and examined lying in bed in [facility] 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 Chart reviewed Vitals/I&O Vitals/I&O: Vital Signs Date Time Temp Pulse Resp B/P (MAP) Pulse Ox O2 Delivery O2 Flow Rate FiO2 12/10/18 10:03 96 Nasal Cannula 4.0 12/10/18 08:37 18 12/10/18 07:00 98.9 116 126/62 (83) 98.9 I & O 12/09/18 12/09/18 12/10/18 14:59 22:59 06:59 Intake Total 120 ml 600 ml Output Total 300 ml Balance -300 ml 120 ml 600 ml Physical Exam General: Alert, Oriented X3, Cooperative, No acute distress Heart: Regular rate (SR/ST), Normal S1, Normal S2, Other (S3/3/6 diastolic murmur to erbs) Lungs: Other (Diminished throughtout) Abdomen: Soft, No tenderness Extremities: No cyanosis, No edema, Other (trace LE, hot to touch skin to bilateral LE) Skin: No rashes, No breakdown, No significant lesion Labs Labs: Laboratory Tests Test 12/10/18 05:00 White Blood Count 13.2 x10^3/uL (4.0-11.0) Red Blood Count 2.76 x10^6/uL (3.50-5.40) Hemoglobin 8.4 g/dL (12.0-15.5) Hematocrit 25.7 % (36.0-47.0) Mean Corpuscular Volume 93 fL (79-100) Mean Corpuscular Hemoglobin 30 pg (25-35) Mean Corpuscular Hemoglobin Concent 33 g/dL (31-37) Red Cell Distribution Width 13.4 % (11.5-14.5) Platelet Count 266 x10^3/uL (140-400) Neutrophils (%) (Auto) 93 % (31-73) Lymphocytes (%) (Auto) 2 % (24-48) Monocytes (%) (Auto) 5 % (0-9) Eosinophils (%) (Auto) 0 % (0-3) Basophils (%) (Auto) 0 % (0-3) Neutrophils # (Auto) 12.2 x10^3/uL (1.8-7.7) Lymphocytes # (Auto) 0.2 x10^3/uL (1.0-4.8) Monocytes # (Auto) 0.7 x10^3/uL (0.0-1.1) Eosinophils # (Auto) 0.0 x10^3/uL (0.0-0.7) Basophils # (Auto) 0.0 x10^3/uL (0.0-0.2) Sodium Level 135 mmol/L (136-145) Potassium Level 4.2 mmol/L (3.5-5.1) Chloride Level 99 mmol/L (98-107) Carbon Dioxide Level 30 mmol/L (21-32) Anion Gap 6 (6-14) Blood Urea Nitrogen 16 mg/dL (7-20) Creatinine 1.1 mg/dL (0.6-1.0) Estimated GFR (Cockcroft-Gault) 50.0 Glucose Level 123 mg/dL (70-99) Calcium Level 9.4 mg/dL (8.5-10.1) Review of Systems Review of Systems: co weakness no co chest pain Assessment and Plan Assessmemt and Plan Problems Medical Problems: (1) Elevated d-dimer Status: Acute (2) Elevated troponin Status: Acute (3) Hypoxia Status: Acute (4) Pancreatic cancer Status: Acute (5) Shortness of breath Status: Acute Assessment Pulmonary Embolism B/L DVT of lower extremities Acute on chronic respiratory failure Pancreatic Cancer Aortic Insufficiency COPD Elevated Troponin Plan Decrease narcotic medication dosage Cardiac monitoring Follow up for port placement and chemotherapy at later date DVT prophylaxis PT/OT Full code Home meds Hold diet lotted for now as she tends to desat Appreciate subspecialty input Long-term prognosis is guarded at best Probably discharge to SNU on Wednesday Comment Review of Relevant I have reviewed the following items les (where applicable) has been applied. Medications: Current Medications Medications (Trade) Dose Ordered Sig/Dena Route PRN Reason Start Time Stop Time Status Last Admin Dose Admin Lidocaine/Sodium Bicarbonate (Buffered Lidocaine 1%) 6 ml 1X ONCE IJ 12/09/18 13:15 12/09/18 13:31 DC 12/09/18 13:36 Midazolam HCl (Versed) 1 mg 1X ONCE IV 12/09/18 13:15 12/09/18 13:31 DC 12/09/18 13:36 Fentanyl Citrate (Fentanyl 5ml Vial) 25 mcg 1X ONCE IV 12/09/18 13:15 12/09/18 13:31 DC 12/09/18 13:36 Lidocaine/ Epinephrine (LIDOCAINE 1%-EPI 1:100,000 Multi-Dose) 15 ml 1X ONCE INJ 12/09/18 13:15 12/09/18 13:31 DC 12/09/18 13:36 Cefazolin Sodium 50 ml @ 100 mls/hr 1X ONCE IV 12/09/18 13:15 12/09/18 13:44 DC 12/09/18 13:36 Iohexol (Omnipaque 240 Mg/ml) 2 ml 1X ONCE IV 12/09/18 13:15 12/09/18 13:31 DC 12/09/18 13:45 Cefazolin Sodium 50 ml @ 100 mls/hr 1X ONCE IV 12/09/18 13:15 12/09/18 13:44 DC 12/09/18 13:45 Lidocaine HCl (Lidocaine 1% 20ml Vial) 8 ml 1X ONCE INJ 12/09/18 13:45 12/09/18 13:46 DC 12/09/18 13:45 Apixaban (Eliquis) 10 mg BID PO 12/09/18 21:00 12/15/18 23:59 12/10/18 08:37 Ascorbic Acid (Vitamin C) 500 mg DAILY PO 12/10/18 09:00 12/10/18 08:37 Multivitamins (Thera M Plus) 1 tab DAILY PO 12/10/18 09:00 12/10/18 08:37 PHUC MILLER III DO Dec 10, 2018 11:26
[2018-12-10] MEDS: guaiFENesin DM 200MG/20MG 10 ML SYRUP PO PRN (13:41)
[2018-12-10 15:00] VITALS: BP 104/56
[2018-12-10 17:01] LABS: BASE EXCESS ABG 0 mmol/L (-3-3); HCO3 ABG 25 mmol/L (21-28); PCO2 ABG 39 mmHg (35-46); PO2 ABG 57 mmHg (65-108); SAT O2 ABG 90 % (92-99)
[2018-12-10 17:03] LABS: FIO2 ABG 36%
[2018-12-10] MEDS ORDERED: ACETAMINOPHEN 325 MG TABLET. PO PRN (18:30)
[2018-12-10 19:00] VITALS: BP 141/63
[2018-12-10] MEDS: AMITRIPTYLINE HCL 25 MG TABLET. PO SCH (19:50)
[2018-12-10] MEDS: ATORVASTATIN CALCIUM 10 MG TABLET. PO SCH (19:50)
[2018-12-10 23:05] VITALS: BP 116/56
[2018-12-11 03:00] VITALS: BP 114/56
[2018-12-11 04:36] LABS: BASO % 0 % (0-3); EOS # 0.5 x10^3/uL (0.0-0.7); EOS % 4 % (0-3); HEMATOCRIT 26.2 % (36.0-47.0); HEMOGLOBIN 8.5 g/dL (12.0-15.5); LYMPH # 0.9 x10^3/uL (1.0-4.8); LYMPH % 8 % (24-48); MEAN CORPUSCULAR HEMOGLOBIN 31 pg (25-35); MEAN CORPUSCULAR HGB CONC 33 g/dL (31-37); MEAN CORPUSCULAR VOLUME 94 fL (79-100); MONO # 0.7 x10^3/uL (0.0-1.1); MONO % 6 % (0-9); NEUT # 9.1 x10^3/uL (1.8-7.7); NEUT % 81 % (31-73); PLATELET COUNT 243 x10^3/uL (140-400); RED BLOOD COUNT 2.79 x10^6/uL (3.50-5.40); RED CELL DISTRIBUTION WIDTH 13.6 % (11.5-14.5); WHITE BLOOD COUNT 11.3 x10^3/uL (4.0-11.0)
[2018-12-11 04:48] LABS: CALCIUM 9.4 mg/dL (8.5-10.1); CREATININE 1.1 mg/dL (0.6-1.0); POTASSIUM 4.5 mmol/L (3.5-5.1)
[2018-12-11 07:00] VITALS: BP 141/63
[2018-12-11] MEDS: IPRATRPIUM/ALBUTEROL 0.5/2.5MG 3 ML NEBU. NEB SCH ×4 (08:09→20:07)
[2018-12-11] MEDS: ASCORBIC ACID 500 MG TABLET PO SCH (08:15)
[2018-12-11] MEDS: PANTOPRAZOLE 40 MG TABLET.DR. PO SCH (08:15)
[2018-12-11] MEDS: MULTIVITAMIN with MINERAL TABLET. PO SCH (08:15)
[2018-12-11] MEDS: APIXABAN 5 MG TABLET. PO SCH ×2 (08:15→21:05)
[2018-12-11] MEDS: HYDROcodone/APAP 10/325 1 TAB TABLET PO PRN ×3 (08:15→19:44)
[2018-12-11] MEDS: POLYETHYLENE GLYCOL 3350 17 GM PACKET. PO SCH (08:16)
[2018-12-11] MEDS: GABAPENTIN 400 MG CAPSULE. PO SCH ×4 (09:00→21:05)
--- NOTE | 2018-12-11 09:16 | PDOC ---
PULMONARY PROGRESS NOTES Subjective Pt. is resting in bed on 4 liters N/C, son at bedside. Reports non-productive cough and increased work of breath on exertion. Pt. is working on improving ambulation Vitals Vital Signs Date Time Temp Pulse Resp B/P (MAP) Pulse Ox O2 Delivery O2 Flow Rate FiO2 12/11/18 08:16 98 Nasal Cannula 4.0 12/11/18 07:00 97.9 112 20 141/63 (89) 97.9 ROS: No Nausea, No Increase Cough General: Alert, Oriented X4, No acute distress HEENT: Other (nc at [facility]) Lungs: Other (Diminished throughtout) Cardiovascular: S1, S2, Other (diminshed in bases ) Abdomen: Soft, Non-tender Neuro Exam: Alert Skin: Warm Labs Laboratory Tests Test 12/10/18 05:00 12/10/18 16:45 12/10/18 17:10 12/10/18 18:14 White Blood Count 13.2 x10^3/uL (4.0-11.0) Red Blood Count 2.76 x10^6/uL (3.50-5.40) Hemoglobin 8.4 g/dL (12.0-15.5) Hematocrit 25.7 % (36.0-47.0) Mean Corpuscular Volume 93 fL (79-100) Mean Corpuscular Hemoglobin 30 pg (25-35) Mean Corpuscular Hemoglobin Concent 33 g/dL (31-37) Red Cell Distribution Width 13.4 % (11.5-14.5) Platelet Count 266 x10^3/uL (140-400) Neutrophils (%) (Auto) 93 % (31-73) Lymphocytes (%) (Auto) 2 % (24-48) Monocytes (%) (Auto) 5 % (0-9) Eosinophils (%) (Auto) 0 % (0-3) Basophils (%) (Auto) 0 % (0-3) Neutrophils # (Auto) 12.2 x10^3/uL (1.8-7.7) Lymphocytes # (Auto) 0.2 x10^3/uL (1.0-4.8) Monocytes # (Auto) 0.7 x10^3/uL (0.0-1.1) Eosinophils # (Auto) 0.0 x10^3/uL (0.0-0.7) Basophils # (Auto) 0.0 x10^3/uL (0.0-0.2) Sodium Level 135 mmol/L (136-145) Potassium Level 4.2 mmol/L (3.5-5.1) Chloride Level 99 mmol/L (98-107) Carbon Dioxide Level 30 mmol/L (21-32) Anion Gap 6 (6-14) Blood Urea Nitrogen 16 mg/dL (7-20) Creatinine 1.1 mg/dL (0.6-1.0) Estimated GFR (Cockcroft-Gault) 50.0 Glucose Level 123 mg/dL (70-99) Calcium Level 9.4 mg/dL (8.5-10.1) O2 Saturation 90 % (92-99) Arterial Blood pH 7.42 (7.35-7.45) Arterial Blood pCO2 at Patient Temp 39 mmHg (35-46) Arterial Blood pO2 at Patient Temp 57 mmHg (65-108) Arterial Blood HCO3 25 mmol/L (21-28) Arterial Blood Base Excess 0 mmol/L (-3-3) FiO2 36% Ammonia < 10 mcmol/L (11-34) Glucose (Fingerstick) 127 mg/dL (70-99) Test 12/11/18 04:15 White Blood Count 11.3 x10^3/uL (4.0-11.0) Red Blood Count 2.79 x10^6/uL (3.50-5.40) Hemoglobin 8.5 g/dL (12.0-15.5) Hematocrit 26.2 % (36.0-47.0) Mean Corpuscular Volume 94 fL (79-100) Mean Corpuscular Hemoglobin 31 pg (25-35) Mean Corpuscular Hemoglobin Concent 33 g/dL (31-37) Red Cell Distribution Width 13.6 % (11.5-14.5) Platelet Count 243 x10^3/uL (140-400) Neutrophils (%) (Auto) 81 % (31-73) Lymphocytes (%) (Auto) 8 % (24-48) Monocytes (%) (Auto) 6 % (0-9) Eosinophils (%) (Auto) 4 % (0-3) Basophils (%) (Auto) 0 % (0-3) Neutrophils # (Auto) 9.1 x10^3/uL (1.8-7.7) Lymphocytes # (Auto) 0.9 x10^3/uL (1.0-4.8) Monocytes # (Auto) 0.7 x10^3/uL (0.0-1.1) Eosinophils # (Auto) 0.5 x10^3/uL (0.0-0.7) Basophils # (Auto) 0.0 x10^3/uL (0.0-0.2) Sodium Level 136 mmol/L (136-145) Potassium Level 4.5 mmol/L (3.5-5.1) Chloride Level 100 mmol/L (98-107) Carbon Dioxide Level 30 mmol/L (21-32) Anion Gap 6 (6-14) Blood Urea Nitrogen 21 mg/dL (7-20) Creatinine 1.1 mg/dL (0.6-1.0) Estimated GFR (Cockcroft-Gault) 50.0 Glucose Level 93 mg/dL (70-99) Calcium Level 9.4 mg/dL (8.5-10.1) Laboratory Tests Test 12/10/18 16:45 12/10/18 17:10 12/10/18 18:14 12/11/18 04:15 O2 Saturation 90 % (92-99) Arterial Blood pH 7.42 (7.35-7.45) Arterial Blood pCO2 at Patient Temp 39 mmHg (35-46) Arterial Blood pO2 at Patient Temp 57 mmHg (65-108) Arterial Blood HCO3 25 mmol/L (21-28) Arterial Blood Base Excess 0 mmol/L (-3-3) FiO2 36% Ammonia < 10 mcmol/L (11-34) Glucose (Fingerstick) 127 mg/dL (70-99) White Blood Count 11.3 x10^3/uL (4.0-11.0) Red Blood Count 2.79 x10^6/uL (3.50-5.40) Hemoglobin 8.5 g/dL (12.0-15.5) Hematocrit 26.2 % (36.0-47.0) Mean Corpuscular Volume 94 fL (79-100) Mean Corpuscular Hemoglobin 31 pg (25-35) Mean Corpuscular Hemoglobin Concent 33 g/dL (31-37) Red Cell Distribution Width 13.6 % (11.5-14.5) Platelet Count 243 x10^3/uL (140-400) Neutrophils (%) (Auto) 81 % (31-73) Lymphocytes (%) (Auto) 8 % (24-48) Monocytes (%) (Auto) 6 % (0-9) Eosinophils (%) (Auto) 4 % (0-3) Basophils (%) (Auto) 0 % (0-3) Neutrophils # (Auto) 9.1 x10^3/uL (1.8-7.7) Lymphocytes # (Auto) 0.9 x10^3/uL (1.0-4.8) Monocytes # (Auto) 0.7 x10^3/uL (0.0-1.1) Eosinophils # (Auto) 0.5 x10^3/uL (0.0-0.7) Basophils # (Auto) 0.0 x10^3/uL (0.0-0.2) Sodium Level 136 mmol/L (136-145) Potassium Level 4.5 mmol/L (3.5-5.1) Chloride Level 100 mmol/L (98-107) Carbon Dioxide Level 30 mmol/L (21-32) Anion Gap 6 (6-14) Blood Urea Nitrogen 21 mg/dL (7-20) Creatinine 1.1 mg/dL (0.6-1.0) Estimated GFR (Cockcroft-Gault) 50.0 Glucose Level 93 mg/dL (70-99) Calcium Level 9.4 mg/dL (8.5-10.1) Medications Active Scripts Medications Dose Route/Sig Max Daily Dose Days Date Category Narcan (Naloxone HCl) 4 Mg [place] 4 Mg NS PRN DAILY PRN 11/28/18 Rx Polyethylene Glycol 3350 17 Gm Powd.pack 17 Gm PO DAILY 11/28/18 Rx FENTANYL 12mcg/hr (Fentanyl) 1 Each Patch.td72 1 Patch TD Q3DAYS 11/28/18 Rx Pantoprazole Sodium (Pantoprazole Sodium) 40 Mg Tablet.dr 40 Mg PO DAILYAC 11/28/18 Rx Aspirin 81 Mg Tab.chew 1 Tab PO DAILYWBKFT 11/22/18 Reported Amitriptyline Hcl 100 Mg Tablet 2.5 Tab PO QHS 05/11/18 Reported Hydrocodone-Apap 10-325 (Hydrocodone Bit/Acetaminophen) 1 Tab Tablet 1 Tab PO PRN Q4HRS PRN 05/11/18 Reported Gabapentin 800 Mg Tablet 800 Mg PO QID 05/11/18 Reported Impression . 1. Acute pulmonary embolism with multiple bilateral segmental and subsegmental mismatch defects along with acute extensive deep vein thrombosis likely 2/2 underlying pancreatic cancer, presenting as hypercoagulable state. 2. Acute on chronic hypoxic respiratory failure secondary to acute pulmonary e mbolism and underlying chronic obstructive pulmonary disease. 3. Extensive deep venous thrombosis burden involving both lower extremities with complete occlusion of the bilateral superficial femoral veins and popliteal veins. Partially occlusive thrombus within the bilateral posterior tibial veins. 4. Recently diagnosed pancreatic cancer, not been on treatment yet. 5. Hemodynamically stable 6. Suspected underlying chronic obstructive pulmonary disease, could be severe. 7. chronic pain syndrome Plan . 1. Continue with present oxygen. wean to keep sats @ 94%. will need another 6 min walk to assess home O2 needs at dc 2. ABG 12/10/18 continue to show hypoxia 3. Oxygen/ Nebs 4. Cont. eliquis 5. Initiate pancreatic cancer treatment as OP 6. The patient will require lifelong anticoagulation due to underlying malignancy. 7. OOB as tolerated 8. Fentanyl patch and pain management per IM 9. Discussed with RICCI COFFMAN MD Dec 11, 2018 09:16
[2018-12-11 10:38] VITALS: BP 100/55
--- NOTE | 2018-12-11 12:31 | PDOC ---
[employer] PROGRESS NOTE Chief Complaint Chief Complaint Pulmonary Embolism B/L DVT of lower extremities Acute on chronic respiratory failure Pancreatic Cancer Aortic Insufficiency COPD Elevated Troponin History of Present Illness History of Present Illness 12/11/18 Pt seen and examined at bedside with [facility] Pt sleeping upon entry; Son is present today- also sleeping upon entry ERNESTINA RN 12/10/18 Pt seen/examined at bedside Pt reports that she feels like her pain has improved since her celiac block Chart Reviewed ERNESTINA RN [id number] Patient seen and examined Discussed with her 2 children Ramila and Star and her sister Discussed with RN Chart reviewed Patient going for celiac block today 12/08/18 Pt seen/examined at bedside in [facility] DW Dr. Anders regarding celiac block Pt is on NC 4.0L and sating at 94% DW RN Chart reviewed 12/07/18 Pt seen and examined lying in bed in [facility] on O2 nasal canula Pt fell this morning (per RN) Will be getting port tomorrow; also getting celiac block DW RN Chart reviewed 12/06/18 Pt seen and examined lying in bed in [facility] ERNESTINA RN DW case coordinator Chart reviewed Vitals/I&O Vitals/I&O: Vital Signs Date Time Temp Pulse Resp B/P (MAP) Pulse Ox O2 Delivery O2 Flow Rate FiO2 12/11/18 11:29 95 Nasal Cannula 4.0 12/11/18 10:38 97.6 88 20 100/55 (70) 97.6 I & O 12/10/18 12/10/18 12/11/18 15:00 23:00 07:00 Intake Total 600 ml 250 ml 50 ml Output Total 450 ml Balance 600 ml 250 ml -400 ml Physical Exam General: Alert, Oriented X3, Cooperative, No acute distress Heart: Regular rate (SR/ST), Normal S1, Normal S2, Other (S3/3/6 diastolic murmur to erbs) Lungs: Other (Diminished throughtout) Abdomen: Soft, No tenderness Extremities: No cyanosis, No edema, Other (trace LE, hot to touch skin to bilateral LE) Skin: No rashes, No breakdown, No significant lesion Labs Labs: Laboratory Tests Test 12/10/18 16:45 12/10/18 17:10 12/10/18 18:14 12/11/18 04:15 O2 Saturation 90 % (92-99) Arterial Blood pH 7.42 (7.35-7.45) Arterial Blood pCO2 at Patient Temp 39 mmHg (35-46) Arterial Blood pO2 at Patient Temp 57 mmHg (65-108) Arterial Blood HCO3 25 mmol/L (21-28) Arterial Blood Base Excess 0 mmol/L (-3-3) FiO2 36% Ammonia < 10 mcmol/L (11-34) Glucose (Fingerstick) 127 mg/dL (70-99) White Blood Count 11.3 x10^3/uL (4.0-11.0) Red Blood Count 2.79 x10^6/uL (3.50-5.40) Hemoglobin 8.5 g/dL (12.0-15.5) Hematocrit 26.2 % (36.0-47.0) Mean Corpuscular Volume 94 fL (79-100) Mean Corpuscular Hemoglobin 31 pg (25-35) Mean Corpuscular Hemoglobin Concent 33 g/dL (31-37) Red Cell Distribution Width 13.6 % (11.5-14.5) Platelet Count 243 x10^3/uL (140-400) Neutrophils (%) (Auto) 81 % (31-73) Lymphocytes (%) (Auto) 8 % (24-48) Monocytes (%) (Auto) 6 % (0-9) Eosinophils (%) (Auto) 4 % (0-3) Basophils (%) (Auto) 0 % (0-3) Neutrophils # (Auto) 9.1 x10^3/uL (1.8-7.7) Lymphocytes # (Auto) 0.9 x10^3/uL (1.0-4.8) Monocytes # (Auto) 0.7 x10^3/uL (0.0-1.1) Eosinophils # (Auto) 0.5 x10^3/uL (0.0-0.7) Basophils # (Auto) 0.0 x10^3/uL (0.0-0.2) Sodium Level 136 mmol/L (136-145) Potassium Level 4.5 mmol/L (3.5-5.1) Chloride Level 100 mmol/L (98-107) Carbon Dioxide Level 30 mmol/L (21-32) Anion Gap 6 (6-14) Blood Urea Nitrogen 21 mg/dL (7-20) Creatinine 1.1 mg/dL (0.6-1.0) Estimated GFR (Cockcroft-Gault) 50.0 Glucose Level 93 mg/dL (70-99) Calcium Level 9.4 mg/dL (8.5-10.1) Review of Systems Review of Systems: Denies CHAVES Denies vision change Assessment and Plan Assessmemt and Plan Problems Medical Problems: (1) Elevated d-dimer Status: Acute (2) Elevated troponin Status: Acute (3) Hypoxia Status: Acute (4) Pancreatic cancer Status: Acute (5) Shortness of breath Status: Acute Assessment Pulmonary Embolism B/L DVT of lower extremities Acute on chronic respiratory failure Pancreatic Cancer Aortic Insufficiency COPD Elevated Troponin Plan Decrease narcotic medication dosage Cardiac monitoring DVT prophylaxis Full code Home meds PT/OT Hold diet lotted for now as she tends to desat Follow up for port placement and chemotherapy at later date Appreciate subspecialty input Long-term prognosis is guarded at best Probably discharge to SNU on Wednesday Comment Review of Relevant I have reviewed the following items les (where applicable) has been applied. Medications: Current Medications Medications (Trade) Dose Ordered Sig/Dena Route PRN Reason Start Time Stop Time Status Last Admin Dose Admin Apixaban (Eliquis) 5 mg BID PO 12/10/18 21:00 12/11/18 08:16 Acetaminophen (Tylenol) 650 mg PRN Q6HRS PRN PO MILD PAIN 1-3 12/10/18 18:30 12/10/18 18:44 PHUC MILLER III DO Dec 11, 2018 12:31
[2018-12-11 15:00] VITALS: BP 102/53
[2018-12-11] MEDS: NYSTATIN 100,000 UNITS/ML 5 ML ORAL.SUSP. SWSW SCH ×2 (17:10→21:05)
[2018-12-11] MEDS ORDERED: POLYETHYLENE GLYCOL 3350 17 GM PACKET. PO PRN (18:45)
[2018-12-11 19:30] VITALS: BP 141/63
[2018-12-11] MEDS: ATORVASTATIN CALCIUM 10 MG TABLET. PO SCH (21:05)
[2018-12-11] MEDS: AMITRIPTYLINE HCL 25 MG TABLET. PO SCH (21:05)
[2018-12-11 23:08] VITALS: BP 161/69
[2018-12-11] MEDS: fentaNYL PF VIAL 100 MCG/2 ML VIAL IV PRN (23:32)
[2018-12-12 03:30] VITALS: BP 126/59
[2018-12-12 04:19] LABS: BASO % 0 % (0-3); EOS # 0.3 x10^3/uL (0.0-0.7); EOS % 3 % (0-3); HEMATOCRIT 25.2 % (36.0-47.0); HEMOGLOBIN 8.3 g/dL (12.0-15.5); LYMPH % 9 % (24-48); MEAN CORPUSCULAR HEMOGLOBIN 31 pg (25-35); MEAN CORPUSCULAR HGB CONC 33 g/dL (31-37); MEAN CORPUSCULAR VOLUME 93 fL (79-100); MONO # 0.8 x10^3/uL (0.0-1.1); MONO % 8 % (0-9); NEUT % 80 % (31-73); PLATELET COUNT 229 x10^3/uL (140-400); RED BLOOD COUNT 2.72 x10^6/uL (3.50-5.40); WHITE BLOOD COUNT 11.2 x10^3/uL (4.0-11.0)
[2018-12-12 04:51] LABS: GFR 55.8; POTASSIUM 3.9 mmol/L (3.5-5.1)
[2018-12-12] MEDS: HYDROcodone/APAP 10/325 1 TAB TABLET PO PRN ×4 (06:39→23:48)
[2018-12-12 07:00] VITALS: BP 121/52
[2018-12-12] MEDS: IPRATRPIUM/ALBUTEROL 0.5/2.5MG 3 ML NEBU. NEB SCH ×4 (07:16→20:03)
[2018-12-12] MEDS: guaiFENesin DM 200MG/20MG 10 ML SYRUP PO PRN ×2 (08:32→19:47)
[2018-12-12] MEDS: fentaNYL 25MCG/HR PATCH 1 PATCH PATCH.TD72 TD SCH (08:32)
[2018-12-12] MEDS: NYSTATIN 100,000 UNITS/ML 5 ML ORAL.SUSP. SWSW SCH ×4 (08:32→19:47)
[2018-12-12] MEDS: MULTIVITAMIN with MINERAL TABLET. PO SCH (08:33)
[2018-12-12] MEDS: APIXABAN 5 MG TABLET. PO SCH ×2 (08:33→19:48)
[2018-12-12] MEDS: GABAPENTIN 400 MG CAPSULE. PO SCH ×4 (08:33→19:48)
[2018-12-12] MEDS: PANTOPRAZOLE 40 MG TABLET.DR. PO SCH (08:33)
[2018-12-12] MEDS: ASCORBIC ACID 500 MG TABLET PO SCH (08:33)
[2018-12-12] MEDS ORDERED: APIXABAN 5 MG TABLET. PO SCH (09:00)
[2018-12-12 11:00] VITALS: BP 116/56
--- NOTE | 2018-12-12 11:14 | PDOC ---
PULMONARY PROGRESS NOTES Subjective Pt. is resting in bed on 4 liters N/C, son at bedside. Reports non-productive cough and increased work of breath on exertion. Pt. is working on improving ambulation Vitals Vital Signs Date Time Temp Pulse Resp B/P (MAP) Pulse Ox O2 Delivery O2 Flow Rate FiO2 12/12/18 08:34 20 Nasal Cannula 3.0 12/12/18 08:33 94 12/12/18 07:00 99.2 93 121/52 (75) 99.2 ROS: No Nausea, No Increase Cough General: Alert, Oriented X4, No acute distress [facility]: [facility] Lungs: Other (Diminished throughtout) Cardiovascular: S1, S2, Other (diminshed in bases ) Abdomen: Soft, Non-tender Neuro Exam: Alert Skin: Warm Labs Laboratory Tests Test 12/10/18 16:45 12/10/18 17:10 12/10/18 18:14 12/11/18 04:15 O2 Saturation 90 % (92-99) Arterial Blood pH 7.42 (7.35-7.45) Arterial Blood pCO2 at Patient Temp 39 mmHg (35-46) Arterial Blood pO2 at Patient Temp 57 mmHg (65-108) Arterial Blood HCO3 25 mmol/L (21-28) Arterial Blood Base Excess 0 mmol/L (-3-3) FiO2 36% Ammonia < 10 mcmol/L (11-34) Glucose (Fingerstick) 127 mg/dL (70-99) White Blood Count 11.3 x10^3/uL (4.0-11.0) Red Blood Count 2.79 x10^6/uL (3.50-5.40) Hemoglobin 8.5 g/dL (12.0-15.5) Hematocrit 26.2 % (36.0-47.0) Mean Corpuscular Volume 94 fL (79-100) Mean Corpuscular Hemoglobin 31 pg (25-35) Mean Corpuscular Hemoglobin Concent 33 g/dL (31-37) Red Cell Distribution Width 13.6 % (11.5-14.5) Platelet Count 243 x10^3/uL (140-400) Neutrophils (%) (Auto) 81 % (31-73) Lymphocytes (%) (Auto) 8 % (24-48) Monocytes (%) (Auto) 6 % (0-9) Eosinophils (%) (Auto) 4 % (0-3) Basophils (%) (Auto) 0 % (0-3) Neutrophils # (Auto) 9.1 x10^3/uL (1.8-7.7) Lymphocytes # (Auto) 0.9 x10^3/uL (1.0-4.8) Monocytes # (Auto) 0.7 x10^3/uL (0.0-1.1) Eosinophils # (Auto) 0.5 x10^3/uL (0.0-0.7) Basophils # (Auto) 0.0 x10^3/uL (0.0-0.2) Sodium Level 136 mmol/L (136-145) Potassium Level 4.5 mmol/L (3.5-5.1) Chloride Level 100 mmol/L (98-107) Carbon Dioxide Level 30 mmol/L (21-32) Anion Gap 6 (6-14) Blood Urea Nitrogen 21 mg/dL (7-20) Creatinine 1.1 mg/dL (0.6-1.0) Estimated GFR (Cockcroft-Gault) 50.0 Glucose Level 93 mg/dL (70-99) Calcium Level 9.4 mg/dL (8.5-10.1) Test 12/12/18 03:55 White Blood Count 11.2 x10^3/uL (4.0-11.0) Red Blood Count 2.72 x10^6/uL (3.50-5.40) Hemoglobin 8.3 g/dL (12.0-15.5) Hematocrit 25.2 % (36.0-47.0) Mean Corpuscular Volume 93 fL (79-100) Mean Corpuscular Hemoglobin 31 pg (25-35) Mean Corpuscular Hemoglobin Concent 33 g/dL (31-37) Red Cell Distribution Width 14.0 % (11.5-14.5) Platelet Count 229 x10^3/uL (140-400) Neutrophils (%) (Auto) 80 % (31-73) Lymphocytes (%) (Auto) 9 % (24-48) Monocytes (%) (Auto) 8 % (0-9) Eosinophils (%) (Auto) 3 % (0-3) Basophils (%) (Auto) 0 % (0-3) Neutrophils # (Auto) 9.0 x10^3/uL (1.8-7.7) Lymphocytes # (Auto) 1.0 x10^3/uL (1.0-4.8) Monocytes # (Auto) 0.8 x10^3/uL (0.0-1.1) Eosinophils # (Auto) 0.3 x10^3/uL (0.0-0.7) Basophils # (Auto) 0.0 x10^3/uL (0.0-0.2) Sodium Level 137 mmol/L (136-145) Potassium Level 3.9 mmol/L (3.5-5.1) Chloride Level 100 mmol/L (98-107) Carbon Dioxide Level 29 mmol/L (21-32) Anion Gap 8 (6-14) Blood Urea Nitrogen 18 mg/dL (7-20) Creatinine 1.0 mg/dL (0.6-1.0) Estimated GFR (Cockcroft-Gault) 55.8 Glucose Level 127 mg/dL (70-99) Calcium Level 9.0 mg/dL (8.5-10.1) Laboratory Tests Test 12/12/18 03:55 White Blood Count 11.2 x10^3/uL (4.0-11.0) Red Blood Count 2.72 x10^6/uL (3.50-5.40) Hemoglobin 8.3 g/dL (12.0-15.5) Hematocrit 25.2 % (36.0-47.0) Mean Corpuscular Volume 93 fL (79-100) Mean Corpuscular Hemoglobin 31 pg (25-35) Mean Corpuscular Hemoglobin Concent 33 g/dL (31-37) Red Cell Distribution Width 14.0 % (11.5-14.5) Platelet Count 229 x10^3/uL (140-400) Neutrophils (%) (Auto) 80 % (31-73) Lymphocytes (%) (Auto) 9 % (24-48) Monocytes (%) (Auto) 8 % (0-9) Eosinophils (%) (Auto) 3 % (0-3) Basophils (%) (Auto) 0 % (0-3) Neutrophils # (Auto) 9.0 x10^3/uL (1.8-7.7) Lymphocytes # (Auto) 1.0 x10^3/uL (1.0-4.8) Monocytes # (Auto) 0.8 x10^3/uL (0.0-1.1) Eosinophils # (Auto) 0.3 x10^3/uL (0.0-0.7) Basophils # (Auto) 0.0 x10^3/uL (0.0-0.2) Sodium Level 137 mmol/L (136-145) Potassium Level 3.9 mmol/L (3.5-5.1) Chloride Level 100 mmol/L (98-107) Carbon Dioxide Level 29 mmol/L (21-32) Anion Gap 8 (6-14) Blood Urea Nitrogen 18 mg/dL (7-20) Creatinine 1.0 mg/dL (0.6-1.0) Estimated GFR (Cockcroft-Gault) 55.8 Glucose Level 127 mg/dL (70-99) Calcium Level 9.0 mg/dL (8.5-10.1) Medications Active Scripts Medications Dose Route/Sig Max Daily Dose Days Date Category Narcan (Naloxone HCl) 4 Mg [place] 4 Mg NS PRN DAILY PRN 30 11/28/18 Rx Polyethylene Glycol 3350 17 Gm Powd.pack 17 Gm PO DAILY 30 11/28/18 Rx FENTANYL 12mcg/hr (Fentanyl) 1 Each Patch.td72 1 Patch TD Q3DAYS 30 11/28/18 Rx Pantoprazole Sodium (Pantoprazole Sodium) 40 Mg Tablet.dr 40 Mg PO DAILYAC 30 11/28/18 Rx Aspirin 81 Mg Tab.chew 1 Tab PO DAILYWBKFT 11/22/18 Reported Amitriptyline Hcl 100 Mg Tablet 2.5 Tab PO QHS 05/11/18 Reported Hydrocodone-Apap 10-325 (Hydrocodone Bit/Acetaminophen) 1 Tab Tablet 1 Tab PO PRN Q4HRS PRN 05/11/18 Reported Gabapentin 800 Mg Tablet 800 Mg PO QID 05/11/18 Reported Impression . 1. Acute pulmonary embolism with multiple bilateral segmental and subsegmental mismatch defects along with acute extensive deep vein thrombosis likely 2/2 underlying pancreatic cancer, presenting as hypercoagulable state. 2. Acute on chronic hypoxic respiratory failure secondary to acute pulmonary embolism and underlying chronic obstructive pulmonary disease. 3. Extensive deep venous thrombosis burden involving both lower extremities with complete occlusion of the bilateral superficial femoral veins and popliteal veins. Partially occlusive thrombus within the bilateral posterior tibial veins. 4. Recently diagnosed pancreatic cancer, not been on treatment yet. 5. Hemodynamically stable 6. Suspected underlying chronic obstructive pulmonary disease, could be severe. 7. chronic pain syndrome Plan . 1. Continue with present oxygen. wean to keep sats @ 94%. will need another 6 min walk to assess home O2 needs at dc 2. ABG 12/10/18 continue to show hypoxia 3. Oxygen/ Nebs 4. Cont. eliquis 5. Initiate pancreatic cancer treatment as OP 6. The patient will require lifelong anticoagulation due to underlying malignancy. 7. OOB as tolerated 8. Fentanyl patch and pain management per IM 9. Discussed with RICCI COFFMNA MD Dec 12, 2018 11:14
--- NOTE | 2018-12-12 11:55 | PDOC ---
PROGRESS NOTES Subjective Subjective HPI - f/u of Metastatic pancreas cancer ROS - no CP Objective Objective Vital Signs Date Time Temp Pulse Resp B/P (MAP) Pulse Ox O2 Delivery O2 Flow Rate FiO2 12/12/18 11:00 98.0 88 20 116/56 (76) 93 Nasal Cannula 4.0 98.0 Intake and Output 12/12/18 06:59 Intake Total 800 ml Balance 800 ml Intake Oral 800 ml # Voids 2 # Bowel Movements 1 Physical Exam Heart: Normal S1, Normal S2 General: Alert, Oriented X3, No acute distress Lungs: Clear to auscultation Neuro: Normal speech Psych/Mental Status: Mental status NL Assessment Assessment Problems Medical Problems: (1) Elevated d-dimer Status: Acute (2) Elevated troponin Status: Acute (3) Hypoxia Status: Acute (4) Pancreatic cancer Status: Acute (5) Shortness of breath Status: Acute Assessment and Plan: 63-year-old female with metastatic pancreas cancer to the liver, bilateral lower extremity DVT, PE, and history of ulcerative colitis 1. Lower extremity DVT: improving on anticoagulation 2. PE: She will continue apixaban 10 mg by mouth twice a day �7 days and then can transition to 5 mg by mouth twice a day indefinitely 3. Metastatic pancreas cancer: We'll plan palliative gemcitabine as outpt as soon as she has some improvement post clot, s/p port 12/09/18. Comment Review of Relevant I have reviewed the following items les (where applicable) has been applied. Labs Laboratory Tests Test 12/10/18 16:45 12/10/18 17:10 12/10/18 18:14 12/11/18 04:15 O2 Saturation 90 % (92-99) Arterial Blood pH 7.42 (7.35-7.45) Arterial Blood pCO2 at Patient Temp 39 mmHg (35-46) Arterial Blood pO2 at Patient Temp 57 mmHg (65-108) Arterial Blood HCO3 25 mmol/L (21-28) Arterial Blood Base Excess 0 mmol/L (-3-3) FiO2 36% Ammonia < 10 mcmol/L (11-34) Glucose (Fingerstick) 127 mg/dL (70-99) White Blood Count 11.3 x10^3/uL (4.0-11.0) Red Blood Count 2.79 x10^6/uL (3.50-5.40) Hemoglobin 8.5 g/dL (12.0-15.5) Hematocrit 26.2 % (36.0-47.0) Mean Corpuscular Volume 94 fL (79-100) Mean Corpuscular Hemoglobin 31 pg (25-35) Mean Corpuscular Hemoglobin Concent 33 g/dL (31-37) Red Cell Distribution Width 13.6 % (11.5-14.5) Platelet Count 243 x10^3/uL (140-400) Neutrophils (%) (Auto) 81 % (31-73) Lymphocytes (%) (Auto) 8 % (24-48) Monocytes (%) (Auto) 6 % (0-9) Eosinophils (%) (Auto) 4 % (0-3) Basophils (%) (Auto) 0 % (0-3) Neutrophils # (Auto) 9.1 x10^3/uL (1.8-7.7) Lymphocytes # (Auto) 0.9 x10^3/uL (1.0-4.8) Monocytes # (Auto) 0.7 x10^3/uL (0.0-1.1) Eosinophils # (Auto) 0.5 x10^3/uL (0.0-0.7) Basophils # (Auto) 0.0 x10^3/uL (0.0-0.2) Sodium Level 136 mmol/L (136-145) Potassium Level 4.5 mmol/L (3.5-5.1) Chloride Level 100 mmol/L (98-107) Carbon Dioxide Level 30 mmol/L (21-32) Anion Gap 6 (6-14) Blood Urea Nitrogen 21 mg/dL (7-20) Creatinine 1.1 mg/dL (0.6-1.0) Estimated GFR (Cockcroft-Gault) 50.0 Glucose Level 93 mg/dL (70-99) Calcium Level 9.4 mg/dL (8.5-10.1) Test 12/12/18 03:55 White Blood Count 11.2 x10^3/uL (4.0-11.0) Red Blood Count 2.72 x10^6/uL (3.50-5.40) Hemoglobin 8.3 g/dL (12.0-15.5) Hematocrit 25.2 % (36.0-47.0) Mean Corpuscular Volume 93 fL (79-100) Mean Corpuscular Hemoglobin 31 pg (25-35) Mean Corpuscular Hemoglobin Concent 33 g/dL (31-37) Red Cell Distribution Width 14.0 % (11.5-14.5) Platelet Count 229 x10^3/uL (140-400) Neutrophils (%) (Auto) 80 % (31-73) Lymphocytes (%) (Auto) 9 % (24-48) Monocytes (%) (Auto) 8 % (0-9) Eosinophils (%) (Auto) 3 % (0-3) Basophils (%) (Auto) 0 % (0-3) Neutrophils # (Auto) 9.0 x10^3/uL (1.8-7.7) Lymphocytes # (Auto) 1.0 x10^3/uL (1.0-4.8) Monocytes # (Auto) 0.8 x10^3/uL (0.0-1.1) Eosinophils # (Auto) 0.3 x10^3/uL (0.0-0.7) Basophils # (Auto) 0.0 x10^3/uL (0.0-0.2) Sodium Level 137 mmol/L (136-145) Potassium Level 3.9 mmol/L (3.5-5.1) Chloride Level 100 mmol/L (98-107) Carbon Dioxide Level 29 mmol/L (21-32) Anion Gap 8 (6-14) Blood Urea Nitrogen 18 mg/dL (7-20) Creatinine 1.0 mg/dL (0.6-1.0) Estimated GFR (Cockcroft-Gault) 55.8 Glucose Level 127 mg/dL (70-99) Calcium Level 9.0 mg/dL (8.5-10.1) Laboratory Tests Test 12/12/18 03:55 White Blood Count 11.2 x10^3/uL (4.0-11.0) Red Blood Count 2.72 x10^6/uL (3.50-5.40) Hemoglobin 8.3 g/dL (12.0-15.5) Hematocrit 25.2 % (36.0-47.0) Mean Corpuscular Volume 93 fL (79-100) Mean Corpuscular Hemoglobin 31 pg (25-35) Mean Corpuscular Hemoglobin Concent 33 g/dL (31-37) Red Cell Distribution Width 14.0 % (11.5-14.5) Platelet Count 229 x10^3/uL (140-400) Neutrophils (%) (Auto) 80 % (31-73) Lymphocytes (%) (Auto) 9 % (24-48) Monocytes (%) (Auto) 8 % (0-9) Eosinophils (%) (Auto) 3 % (0-3) Basophils (%) (Auto) 0 % (0-3) Neutrophils # (Auto) 9.0 x10^3/uL (1.8-7.7) Lymphocytes # (Auto) 1.0 x10^3/uL (1.0-4.8) Monocytes # (Auto) 0.8 x10^3/uL (0.0-1.1) Eosinophils # (Auto) 0.3 x10^3/uL (0.0-0.7) Basophils # (Auto) 0.0 x10^3/uL (0.0-0.2) Sodium Level 137 mmol/L (136-145) Potassium Level 3.9 mmol/L (3.5-5.1) Chloride Level 100 mmol/L (98-107) Carbon Dioxide Level 29 mmol/L (21-32) Anion Gap 8 (6-14) Blood Urea Nitrogen 18 mg/dL (7-20) Creatinine 1.0 mg/dL (0.6-1.0) Estimated GFR (Cockcroft-Gault) 55.8 Glucose Level 127 mg/dL (70-99) Calcium Level 9.0 mg/dL (8.5-10.1) Microbiology 12/01/18 Blood Culture - Final, Complete NO GROWTH AFTER 5 DAYS Medications Current Medications Albuterol/ Ipratropium (Duoneb) 3 ml 1X ONCE NEB Last administered on 12/01/18at 19:06; Start 12/01/18 at 19:00; Stop 12/01/18 at 19:01; Status DC Methylprednisolone Sodium Succinate (SOLU-Medrol 125MG VIAL) 125 mg 1X ONCE IV Last administered on 12/01/18at 19:17; Start 12/01/18 at 19:00; Stop 12/01/18 at 19:01; Status DC Aspirin (Becca Aspirin) 325 mg 1X ONCE PO Last administered on 12/01/18 19:58; Start 12/01/18 at 20:00; Stop 12/01/18 at 20:01; Status DC Bumetanide (Bumex) 0.5 mg 1X ONCE IV Last administered on 12/01/18 19:58; Start 12/01/18 at 20:00; Stop 12/01/18 at 20:01; Status DC Enoxaparin Sodium (Lovenox 80mg Syringe) 70 mg 1X ONCE SQ Last administered on 12/01/18at 20:18; Start 12/01/18 at 20:45; Stop 12/01/18 at 20:46; Status DC Ondansetron HCl (Zofran) 4 mg PRN Q8HRS PRN IV NAUSEA/VOMITING; Start 12/01/18 at 20:30; Stop 12/02/18 at 20:29; Status DC Fentanyl Citrate (Fentanyl 2ml Vial) 50 mcg PRN Q4HRS PRN IV PAIN Last administered on 12/06/18 11:22; Start 12/01/18 at 20:30; Stop 12/06/18 at 12:27; Status DC Acetaminophen (Tylenol) 650 mg PRN Q4HRS PRN PO FEVER; Start 12/01/18 at 20:30; Stop 12/02/18 at 20:29; Status DC Albuterol/ Ipratropium (Duoneb) 3 ml RTQID NEB Last administered on 12/03/18 07:38; Start 12/02/18 at 08:00; Stop 12/03/18 at 07:59; Status DC Enoxaparin Sodium (Lovenox 80mg Syringe) 70 mg Q12HR SQ Last administered on 12/04/18 10:02; Start 12/02/18 at 09:00; Stop 12/04/18 at 14:51; Status DC Aspirin (Children'S Aspirin) 81 mg DAILYWBKFT PO Last administered on 12/05/18 08:39; Start 12/02/18 at 08:00; Stop 12/05/18 at 09:41; Status DC Fentanyl (Duragesic 12mcg/ Hr Patch) 1 patch Q3DAYS TD Last administered on 12/05/18 08:39; Start 12/02/18 at 09:00; Stop 12/06/18 at 09:55; Status DC Acetaminophen/ Hydrocodone Bitart (Lortab 10/325) 1 tab PRN Q4HRS PRN PO MODERATE TO SEVERE PAIN Last administered on 12/12/18 06:39; Start 12/01/18 at 21:30 Pantoprazole Sodium (Protonix) 40 mg DAILYAC PO Last administered on 12/12/18 08:33; Start 12/02/18 at 07:30 Polyethylene Glycol (miraLAX PACKET) 17 gm DAILY PO Last administered on 12/11/18 08:16; Start 12/02/18 at 09:00; Stop 12/11/18 at 18:41; Status DC Amitriptyline HCl (Elavil) 250 mg QHS PO Last administered on 12/11/18 21:06; Start 12/01/18 at 22:00 Gabapentin (Neurontin) 800 mg QID PO Last administered on 12/11/18 14:28; Start 12/01/18 at 22:00; Stop 12/11/18 at 15:38; Status DC Non-Formulary Medication (Naloxone HCl (Narcan)) 4 mg PRN DAILY PRN NS overdose; Start 12/01/18 at 21:30; Stop 12/01/18 at 21:41; Status DC Naloxone HCl (Narcan) 0.4 mg PRN Q2MIN PRN IV SEE COMMENTS Last administered on 12/08/18 22:27; Start 12/01/18 at 21:45 Info (Anti-Coagulation Monitoring By Pharmacy) 1 each PRN DAILY PRN MC SEE COMMENTS Last administered on 12/08/18 15:46; Start 12/02/18 at 10:15 Atorvastatin Calcium (Lipitor) 10 mg QHS PO Last administered on 12/11/18 21:06; Start 12/02/18 at 21:00 Albuterol/ Ipratropium (Duoneb) 3 ml RTQID NEB Last administered on 12/12/18 07:16; Start 12/04/18 at 08:00 Apixaban (Eliquis) 10 mg BID PO Last administered on 12/06/18 08:35; Start 12/04/18 at 21:00; Stop 12/06/18 at 13:53; Status DC Fentanyl (Duragesic 25mcg/ Hr Patch) 1 patch Q3DAYS TD Last administered on 12/12/18at 08:33; Start 12/06/18 at 10:00 Fentanyl Citrate (Fentanyl 2ml Vial) 75 mcg PRN Q2HR PRN IV PAIN SEVERE, USE 1ST Last administered on 12/11/18at 23:32; Start 12/06/18 at 12:30 Heparin Sodium/ Dextrose 500 ml @ 0 mls/hr CONT PRN IV PER PROTOCOL Last administered on 12/07/18at 04:25; Start 12/06/18 at 20:30; Stop 12/09/18 at 14:40; Status DC Heparin Sodium (Porcine) (Heparin Sodium) 2,150 unit PRN Q6HRS PRN IV FOR UFH LEVEL LESS THAN 0.2; Start 12/06/18 at 20:30; Stop 12/07/18 at 16:34; Status DC Heparin Sodium (Porcine) (Heparin Sodium) 1,100 unit PRN Q6HRS PRN IV FOR UFH LEVEL 0.2 - 0.29; Start 12/06/18 at 20:30; Stop 12/09/18 at 14:40; Status DC Apixaban (Eliquis) 10 mg BID PO ; Start 12/08/18 at 21:00; Stop 12/07/18 at 07:28; Status DC Apixaban (Eliquis) 5 mg BID PO ; Start 12/12/18 at 09:00; Stop 12/07/18 at 07:28; Status DC Polyethylene Glycol (miraLAX PACKET) 51 gm 1X ONCE PO Last administered on 12/07/18at 10:55; Start 12/07/18 at 10:00; Stop 12/07/18 at 10:01; Status DC Polyethylene Glycol (miraLAX PACKET) 51 gm PRN DAILY PRN PO CONSTIPATION; Start 12/07/18 at 10:15 Guaifenesin (Robitussin Dm) 10 ml PRN Q6HRS PRN PO COUGH Last administered on 12/12/18at 08:33; Start 12/07/18 at 13:00 Heparin Sodium (Porcine) (Heparin Sodium) 5,550 unit PRN Q6HRS PRN IV FOR PTT<24 SEC; Start 12/07/18 at 16:34; Stop 12/09/18 at 15:06; Status DC Calcium Carbonate/ Glycine (Tums) 500 mg PRN Q4HRS PRN PO INDIGESTION; Start 12/08/18 at 01:00 Hydromorphone HCl (Dilaudid) 1 mg PRN Q2HR PRN IV SEVERE PAIN 7-10, 2ND CHOICE Last administered on 12/08/18at 20:20; Start 12/08/18 at 12:15; Stop 12/09/18 at 08:27; Status DC Prednisone (Prednisone) 50 mg 1X ONCE PO Last administered on 12/08/18at 21:56; Start 12/08/18 at 22:00; Stop 12/08/18 at 22:01; Status DC Prednisone (Prednisone) 50 mg 1X ONCE PO Last administered on 12/09/18at 05:44; Start 12/09/18 at 05:00; Stop 12/09/18 at 05:01; Status DC Prednisone (Prednisone) 50 mg 1X ONCE PO Last administered on 12/09/18at 09:20; Start 12/09/18 at 09:00; Stop 12/09/18 at 09:01; Status DC Diphenhydramine HCl (Benadryl) 50 mg 1X ONCE IVP Last administered on 12/09/18at 12:08; Start 12/09/18 at 09:00; Stop 12/09/18 at 09:01; Status DC Ondansetron HCl (Zofran) 4 mg PRN Q6HRS PRN IV NAUSEA/VOMITING 1ST CHOICE Last administered on 12/08/18at 22:39; Start 12/08/18 at 22:30 Lidocaine/Sodium Bicarbonate (Buffered Lidocaine 1%) 3 ml STK-MED ONCE .ROUTE ; Start 12/09/18 at 09:21; Stop 12/09/18 at 09:22; Status DC Iohexol (Omnipaque 240 Mg/ml) 50 ml STK-MED ONCE .ROUTE ; Start 12/09/18 at 09:21; Stop 12/09/18 at 09:22; Status DC Lidocaine HCl (Lidocaine 1% 20ml Vial) 20 ml STK-MED ONCE .ROUTE ; Start 12/09/18 at 09:21; Stop 12/09/18 at 09:22; Status DC Lidocaine/ Epinephrine (LIDOCAINE 1%-EPI 1:100,000 Multi-Dose) 20 ml STK-MED ONCE .ROUTE ; Start 12/09/18 at 10:14; Stop 12/09/18 at 10:14; Status DC Midazolam HCl (Versed) 5 mg STK-MED ONCE .ROUTE ; Start 12/09/18 at 11:47; Stop 12/09/18 at 11:48; Status DC Fentanyl Citrate (Fentanyl 5ml Vial) 250 mcg STK-MED ONCE .ROUTE ; Start 12/09/18 at 11:48; Stop 12/09/18 at 11:48; Status DC Diphenhydramine HCl (Benadryl) 50 mg STK-MED ONCE .ROUTE ; Start 12/09/18 at 12:01; Stop 12/09/18 at 12:02; Status DC Cefazolin Sodium 100 ml @ As Directed STK-MED ONCE IV ; Start 12/09/18 at 13:03; Stop 12/09/18 at 13:04; Status DC Lidocaine/Sodium Bicarbonate (Buffered Lidocaine 1%) 6 ml 1X ONCE IJ Last administered on 12/09/18at 13:36; Start 12/09/18 at 13:15; Stop 12/09/18 at 13:3 1; Status DC Midazolam HCl (Versed) 1 mg 1X ONCE IV Last administered on 12/09/18at 13:36; Start 12/09/18 at 13:15; Stop 12/09/18 at 13:31; Status DC Fentanyl Citrate (Fentanyl 5ml Vial) 25 mcg 1X ONCE IV Last administered on 12/09/18at 13:36; Start 12/09/18 at 13:15; Stop 12/09/18 at 13:31; Status DC Lidocaine/ Epinephrine (LIDOCAINE 1%-EPI 1:100,000 Multi-Dose) 15 ml 1X ONCE INJ Last administered on 12/09/18at 13:36; Start 12/09/18 at 13:15; Stop 12/09/18 at 13:31; Status DC Cefazolin Sodium 50 ml @ 100 mls/hr 1X ONCE IV Last administered on 12/09/18at 13:36; Start 12/09/18 at 13:15; Stop 12/09/18 at 13:44; Status DC Lidocaine HCl 8 ml 1X ONCE IJ ; Start 12/09/18 at 13:15; Stop 12/09/18 at 13:31; Status DC Iohexol (Omnipaque 240 Mg/ml) 2 ml 1X ONCE IV Last administered on 12/09/18 13:45; Start 12/09/18 at 13:15; Stop 12/09/18 at 13:31; Status DC Cefazolin Sodium 50 ml @ 100 mls/hr 1X ONCE IV Last administered on 12/09/18at 13:45; Start 12/09/18 at 13:15; Stop 12/09/18 at 13:44; Status DC Lidocaine HCl (Lidocaine 1% 20ml Vial) 8 ml 1X ONCE INJ Last administered on 12/09/18at 13:45; Start 12/09/18 at 13:45; Stop 12/09/18 at 13:46; Status DC Apixaban (Eliquis) 10 mg BID PO Last administered on 12/10/18 08:37; Start 12/09/18 at 21:00; Stop 12/10/18 at 15:05; Status DC Alcohol (Alcohol, Dehydrated 98%) 40 ml 1X ONCE IJ ; Start 12/09/18 at 15:15; Stop 12/09/18 at 15:16; Status DC Ascorbic Acid (Vitamin C) 500 mg DAILY PO Last administered on 12/12/18 08:33; Start 12/10/18 at 09:00 Multivitamins (Thera M Plus) 1 tab DAILY PO Last administered on 12/12/18 08:33; Start 12/10/18 at 09:00 Apixaban (Eliquis) 5 mg BID PO Last administered on 12/12/18 08:33; Start 12/10/18 at 21:00 Acetaminophen (Tylenol) 650 mg PRN Q6HRS PRN PO MILD PAIN 1-3 Last administered on 12/10/18at 18:44; Start 12/10/18 at 18:30 Nystatin (Nystatin Oral Susp) 5 ml [id number] Last administered on 12/12/18 08:33; Start 12/11/18 at 17:00 Gabapentin (Neurontin) 800 mg QID PO Last administered on 12/12/18 08:33; Start 12/11/18 at 17:00 Polyethylene Glycol (miraLAX PACKET) 17 gm PRN DAILY PRN PO CONSTIPATION; Start 12/11/18 at 18:45 Active Scripts Active Coumadin (Warfarin Sodium) 10 Mg Tablet 1 Each MC PRN DAILY PRN 30 Days Narcan (Naloxone HCl) 4 Mg [place] 4 Mg NS PRN DAILY PRN 30 Days Polyethylene Glycol 3350 17 Gm Powd.pack 17 Gm PO DAILY 30 Days FENTANYL 12mcg/hr (Fentanyl) 1 Each Patch.td72 1 Patch TD Q3DAYS 30 Days Pantoprazole Sodium (Pantoprazole Sodium) 40 Mg Tablet.dr 40 Mg PO DAILYAC 30 Days Reported Aspirin 81 Mg Tab.chew 1 Tab PO DAILYWBKFT Amitriptyline Hcl 100 Mg Tablet 2.5 Tab PO QHS Hydrocodone-Apap 10-325 (Hydrocodone Bit/Acetaminophen) 1 Tab Tablet 1 Tab PO PRN Q4HRS PRN Gabapentin 800 Mg Tablet 800 Mg PO QID Vitals/I & O Vital Sign - Last 24 Hours 12/11/18 12/11/18 12/11/18 12/11/18 14:28 15:00 15:38 16:36 Temp 98.0 98.0 Pulse 92 B/P (MAP) 102/53 (69) Pulse Ox 95 95 95 95 O2 Delivery Nasal Cannula Nasal Cannula Nasal Cannula Nasal Cannula O2 Flow Rate 4.0 4.0 4.0 4.0 12/11/18 12/11/18 12/11/18 12/11/18 19:30 19:35 19:44 19:48 Temp 99.1 99.1 Pulse 101 Resp 20 20 B/P (MAP) 141/63 (89) Pulse Ox 94 96 O2 Delivery Nasal Cannula Nasal Cannula Nasal Cannula Nasal Cannula O2 Flow Rate 4.0 4.0 4.0 3.0 12/11/18 12/11/18 12/11/18 12/12/18 21:09 23:08 23:32 02:32 Temp 98.5 98.5 Pulse 102 Resp 20 20 20 20 B/P (MAP) 161/69 (99) Pulse Ox 96 94 O2 Delivery Nasal Cannula Nasal Cannula Nasal Cannula Nasal Cannula O2 Flow Rate 3.0 4.0 4.0 4.0 12/12/18 12/12/18 12/12/18 12/12/18 03:30 06:39 07:00 07:16 Temp 99.0 99.2 99.0 99.2 Pulse 107 93 Resp 20 20 20 B/P (MAP) 126/59 (81) 121/52 (75) Pulse Ox 91 91 91 94 O2 Delivery Nasal Cannula Nasal Cannula Nasal Cannula Nasal Cannula O2 Flow Rate 4.0 4.0 5.0 3.0 12/12/18 12/12/18 12/12/18 12/12/18 08:00 08:33 08:34 11:00 Temp 98.0 98.0 Pulse 88 Resp 18 20 20 B/P (MAP) 116/56 (76) Pulse Ox 94 93 O2 Delivery Nasal Cannula Nasal Cannula Nasal Cannula Nasal Cannula O2 Flow Rate 4.0 3.0 3.0 4.0 Intake and Output 12/11/18 12/11/18 12/12/18 14:59 22:59 06:59 Intake Total 300 ml 500 ml 0 ml Balance 300 ml 500 ml 0 ml Nutrition Consultation Dietary Evaluation: Recommendations by RD: Increase Calorie Intake, Protein supplementation Comments: Continue w/cardiac diet, will add GI soft REC Ensure w/dinner and prn/between meals REC Vit C 500 mg BID, MVI q day - wound healing Expected Outcomes/Goals: PO intake to meet >75% est needs - met at times, goal ongoing Malnutrition Findings: Food and Nutrition Intake (Sev: <50% est energy req 5days Weight Status: Appropriate PEYTON GIRON MD Dec 12, 2018 11:55
--- NOTE | 2018-12-12 13:20 | PDOC2 ---
PALLIATIVE CARE Palliative Care Note 0935 Palliative Care Patient awakens easily. States pain is better. Utilizing the "faces" patient rates pain 4-5. Discussed Code status. Patient wants to remain full code. Discussed AD. Patient thinks she has completed this document but not sure. Will check with family. CECILIA CASILLAS Dec 12, 2018 13:20
--- NOTE | 2018-12-12 13:47 | SNU/HH DC ---
DISCHARGE ORDERS DISCHARGE INFORMATION: FINAL DIAGNOSIS Problems Medical Problems: (1) Elevated d-dimer Status: Acute (2) Elevated troponin Status: Acute (3) Hypoxia Status: Acute (4) Pancreatic cancer Status: Acute (5) Shortness of breath Status: Acute CONDITION ON DISCHARGE: Stable CODE STATUS: Code Status: Full PENITENTIARY: SNF STAY <30 DAYS: Yes HOSPICE: HOSPICE: No HOSPICE EVAL & TREAT: No LTAC: ADMIT TO LTAC: No POST DISCHARGE ORDERS: ACTIVITY ORDERS: Activity as tolerated DIET AFTER DISCHARGE: Cardiac TREATMENT/EQUIPMENT ORDERS: ADAPTIVE EQUIPMENT NEEDED: Four wheeled walker Physical Therapy For: Evalulation/Treatment Occupational Therapy For: Evaluation/Treatment DISCHARGE MEDICATIONS: Home Meds Active Scripts Warfarin Sodium (COUMADIN) 10 Mg Tablet, 1 EACH MC PRN DAILY PRN for SEE COMMENTS for 30 Days, TAB Prov:PHUC MILLER III DO 12/06/18 Naloxone HCl (Narcan) 4 Mg [place], 4 MG NS PRN DAILY PRN for overdose for 30 Days, #1 SPRAY 11 Refills Prov:DEBRA WILLIAM MD 11/28/18 Polyethylene Glycol 3350 (POLYETHYLENE GLYCOL 3350) 17 Gm Powd.pack, 17 GM PO DAILY for Constipation for 30 Days, #30 PKT Prov:DEBRA WILLIAM MD 11/28/18 Fentanyl (FENTANYL 12mcg/hr) 1 Each Patch.td72, 1 PATCH TD Q3DAYS for Pancreatic cancer pain, metast for 30 Days, #10 PATCH Prov:DEBRA WILLIAM MD 11/28/18 Pantoprazole Sodium (PANTOPRAZOLE SODIUM ) 40 Mg Tablet.dr, 40 MG PO DAILYAC for GERD for 30 Days, #30 TAB.SR Prov:DEBRA WILLIAM MD 11/28/18 Reported Medications Aspirin (ASPIRIN) 81 Mg Tab.chew, 1 TAB PO DAILYWBKFT for varicose veins, #90 TAB 3 Refills 11/22/18 Amitriptyline Hcl (AMITRIPTYLINE HCL) 100 Mg Tablet, 2.5 TAB PO QHS for pain and sleep, #30 TAB 1 Refill 05/11/18 Hydrocodone Bit/Acetaminophen (HYDROCODONE-APAP 10-325 ) 1 Tab Tablet, 1 TAB PO PRN Q4HRS PRN for PAIN, TAB 0 Refills 2/13/19 Gabapentin (GABAPENTIN) 800 Mg Tablet, 800 MG PO QID for neuropathy, TAB 05/11/18 PHUC MILLER III DO Dec 12, 2018 13:47
--- NOTE | 2018-12-12 13:50 | NUR ---
SS following up with discharge planning. PT/OT recommending senior care unit. SS met with pt to discuss discharge planning. Pt reported that she is now agreeable to go to senior care unit mainly due to family encouragement. Pt agreeable to [facility] at discharge but reported that she would notify SS if family has made any other decisions in regards to facility. SS phoned and faxed referral to [facility], ; fax [phone], for re-review. SS will await acceptance decision and will proceed accordingly with discharge planning.
--- NOTE | 2018-12-12 13:54 | PDOC ---
[employer] PROGRESS NOTE Chief Complaint Chief Complaint Pulmonary Embolism B/L DVT of lower extremities Acute on chronic respiratory failure Pancreatic Cancer Aortic Insufficiency COPD Elevated Troponin History of Present Illness History of Present Illness 12/12/18 Pt seen and examined at bedside ERNESTINA RN 12/11/18 Pt seen and examined at bedside with [facility] Pt sleeping upon entry; Son is present today- also sleeping upon entry ERNESTINA RN 12/10/18 Pt seen/examined at bedside Pt reports that she feels like her pain has improved since her celiac block Chart Reviewed ERNESTINA RN [id number] Patient seen and examined Discussed with her 2 children Ramila and Star and her sister Discussed with RN Chart reviewed Patient going for celiac block today 12/08/18 Pt seen/examined at bedside in [facility] DW Dr. Anders regarding celiac block Pt is on NC 4.0L and sating at 94% DW RN Chart reviewed 12/07/18 Pt seen and examined lying in bed in [facility] on O2 nasal canula Pt fell this morning (per RN) Will be getting port tomorrow; also getting celiac block DW RN Chart reviewed 12/06/18 Pt seen and examined lying in bed in [facility] ERNESTINA RN DW patient case manager Chart reviewed Vitals/I&O Vitals/I&O: Vital Signs Date Time Temp Pulse Resp B/P (MAP) Pulse Ox O2 Delivery O2 Flow Rate FiO2 12/12/18 13:07 94 Nasal Cannula 4.0 12/12/18 12:58 20 12/12/18 11:00 98.0 88 116/56 (76) 98.0 I & O 12/11/18 12/11/18 12/12/18 15:00 23:00 07:00 Intake Total 300 ml 500 ml 0 ml Balance 300 ml 500 ml 0 ml Physical Exam General: Alert, Oriented X3, No acute distress Heart: Normal S1, Normal S2 Lungs: Other (Diminished throughtout) Abdomen: Soft, No tenderness Extremities: No cyanosis, No edema, Other (trace LE, hot to touch skin to bilateral LE) Skin: No rashes, No breakdown, No significant lesion Labs Labs: Laboratory Tests Test 12/12/18 03:55 White Blood Count 11.2 x10^3/uL (4.0-11.0) Red Blood Count 2.72 x10^6/uL (3.50-5.40) Hemoglobin 8.3 g/dL (12.0-15.5) Hematocrit 25.2 % (36.0-47.0) Mean Corpuscular Volume 93 fL (79-100) Mean Corpuscular Hemoglobin 31 pg (25-35) Mean Corpuscular Hemoglobin Concent 33 g/dL (31-37) Red Cell Distribution Width 14.0 % (11.5-14.5) Platelet Count 229 x10^3/uL (140-400) Neutrophils (%) (Auto) 80 % (31-73) Lymphocytes (%) (Auto) 9 % (24-48) Monocytes (%) (Auto) 8 % (0-9) Eosinophils (%) (Auto) 3 % (0-3) Basophils (%) (Auto) 0 % (0-3) Neutrophils # (Auto) 9.0 x10^3/uL (1.8-7.7) Lymphocytes # (Auto) 1.0 x10^3/uL (1.0-4.8) Monocytes # (Auto) 0.8 x10^3/uL (0.0-1.1) Eosinophils # (Auto) 0.3 x10^3/uL (0.0-0.7) Basophils # (Auto) 0.0 x10^3/uL (0.0-0.2) Sodium Level 137 mmol/L (136-145) Potassium Level 3.9 mmol/L (3.5-5.1) Chloride Level 100 mmol/L (98-107) Carbon Dioxide Level 29 mmol/L (21-32) Anion Gap 8 (6-14) Blood Urea Nitrogen 18 mg/dL (7-20) Creatinine 1.0 mg/dL (0.6-1.0) Estimated GFR (Cockcroft-Gault) 55.8 Glucose Level 127 mg/dL (70-99) Calcium Level 9.0 mg/dL (8.5-10.1) Review of Systems Review of Systems: Denies CHAVES Denies vision change Assessment and Plan Assessmemt and Plan Problems Medical Problems: (1) Elevated d-dimer Status: Acute (2) Elevated troponin Status: Acute (3) Hypoxia Status: Acute (4) Pancreatic cancer Status: Acute (5) Shortness of breath Status: Acute Assessment Pulmonary Embolism B/L DVT of lower extremities Acute on chronic respiratory failure Pancreatic Cancer Aortic Insufficiency COPD Elevated Troponin Plan PRN narcotic Cardiac monitoring DVT prophylaxis Full code Home meds PT/OT Encourage PO intake Discharge disposition pending Comment Review of Relevant I have reviewed the following items les (where applicable) has been applied. Medications: Current Medications Medications (Trade) Dose Ordered Sig/Dena Route PRN Reason Start Time Stop Time Status Last Admin Dose Admin Nystatin (Nystatin Oral Susp) 5 ml [id number] 12/11/18 17:00 12/12/18 12:49 Gabapentin (Neurontin) 800 mg QID PO 12/11/18 17:00 12/12/18 12:49 PHUC MILLER III DO Dec 12, 2018 13:53
[2018-12-12 14:43] VITALS: BP 103/55
[2018-12-12 19:10] VITALS: BP 166/74
[2018-12-12] MEDS: AMITRIPTYLINE HCL 25 MG TABLET. PO SCH (19:48)
[2018-12-12] MEDS: ATORVASTATIN CALCIUM 10 MG TABLET. PO SCH (19:48)
--- NOTE | 2018-12-12 21:47 | NUR ---
another rn brought to my attention that it was getting heated in room 203. i wnet into room and asked if there was something i could do, pt is worked up and crying. i had offered to have visitors to leave so that you can rest. she said she was talking to her family about the new dx of pancreatic ca. i appologized and asked if there was anything i could do to help, coffee....etc lcrn
[2018-12-12 23:05] VITALS: BP 116/56
[2018-12-13 03:25] VITALS: BP 105/54
[2018-12-13 06:40] LABS: CALCIUM 8.9 mg/dL (8.5-10.1); CREATININE 0.9 mg/dL (0.6-1.0); POTASSIUM 4.1 mmol/L (3.5-5.1)
[2018-12-13 07:00] VITALS: BP 117/59
[2018-12-13 07:11] LABS: BASO % 0 % (0-3); EOS # 0.3 x10^3/uL (0.0-0.7); EOS % 4 % (0-3); HEMATOCRIT 24.6 % (36.0-47.0); HEMOGLOBIN 8.1 g/dL (12.0-15.5); LYMPH # 0.9 x10^3/uL (1.0-4.8); LYMPH % 10 % (24-48); MEAN CORPUSCULAR HEMOGLOBIN 31 pg (25-35); MEAN CORPUSCULAR HGB CONC 33 g/dL (31-37); MEAN CORPUSCULAR VOLUME 94 fL (79-100); MONO # 0.7 x10^3/uL (0.0-1.1); MONO % 7 % (0-9); NEUT # 7.1 x10^3/uL (1.8-7.7); NEUT % 79 % (31-73); PLATELET COUNT 227 x10^3/uL (140-400); RED BLOOD COUNT 2.63 x10^6/uL (3.50-5.40)
[2018-12-13] MEDS: IPRATRPIUM/ALBUTEROL 0.5/2.5MG 3 ML NEBU. NEB SCH ×2 (08:00→12:00)
--- NOTE | 2018-12-13 08:37 | NUR ---
SS following up with discharge planning. Discharge orders received for [facility], ; fax [phone]. SS phoned and faxed discharge orders to [facility]. Pt will discharge today and go to [facility] at 1130 via [facility] transport, [id number]. Pt, pt's RN, and pt's family notified.
[2018-12-13] MEDS: PANTOPRAZOLE 40 MG TABLET.DR. PO SCH (09:07)
[2018-12-13] MEDS: HYDROcodone/APAP 10/325 1 TAB TABLET PO PRN (09:07)
[2018-12-13] MEDS: GABAPENTIN 400 MG CAPSULE. PO SCH (09:07)
[2018-12-13] MEDS: NYSTATIN 100,000 UNITS/ML 5 ML ORAL.SUSP. SWSW SCH (09:08)
[2018-12-13] MEDS: APIXABAN 5 MG TABLET. PO SCH (09:08)
[2018-12-13] MEDS: ASCORBIC ACID 500 MG TABLET PO SCH (09:08)
[2018-12-13] MEDS: MULTIVITAMIN with MINERAL TABLET. PO SCH (09:08)
--- NOTE | 2018-12-13 09:24 | PDOC ---
PROGRESS NOTES Subjective Subjective HPI - f/u of Metastatic pancreas cancer ROS - no CP, has abd pain Objective Objective Vital Signs Date Time Temp Pulse Resp B/P (MAP) Pulse Ox O2 Delivery O2 Flow Rate FiO2 12/13/18 09:08 97 Nasal Cannula 4.0 12/13/18 07:00 98.0 81 20 117/59 (78) 98.0 Intake and Output 12/13/18 07:00 Intake Total 625 ml Output Total 100 ml Balance 525 ml Intake Oral 625 ml Output Urine Total 100 ml # Bowel Movements 3 Physical Exam Heart: Normal S1, Normal S2 General: Alert, Oriented X3 Lungs: Clear to auscultation Neuro: Normal speech Psych/Mental Status: Mental status NL Assessment Assessment Problems Medical Problems: (1) Elevated d-dimer Status: Acute (2) Elevated troponin Status: Acute (3) Hypoxia Status: Acute (4) Pancreatic cancer Status: Acute (5) Shortness of breath Status: Acute Assessment and Plan: 63-year-old female with metastatic pancreas cancer to the liver, bilateral lower extremity DVT, PE, and history of ulcerative colitis 1. Lower extremity DVT: improving on anticoagulation 2. PE: She will continue apixaban 10 mg by mouth twice a day �7 days and then can transition to 5 mg by mouth twice a day indefinitely 3. Metastatic pancreas cancer: We'll plan palliative gemcitabine as outpt as soon as she has some improvement post clot, s/p port 12/09/18. f/u with Dr Miller next week. Comment Review of Relevant I have reviewed the following items les (where applicable) has been applied. Labs Laboratory Tests Test 12/12/18 03:55 12/13/18 06:00 White Blood Count 11.2 x10^3/uL (4.0-11.0) 9.0 x10^3/uL (4.0-11.0) Red Blood Count 2.72 x10^6/uL (3.50-5.40) 2.63 x10^6/uL (3.50-5.40) Hemoglobin 8.3 g/dL (12.0-15.5) 8.1 g/dL (12.0-15.5) Hematocrit 25.2 % (36.0-47.0) 24.6 % (36.0-47.0) Mean Corpuscular Volume 93 fL (79-100) 94 fL (79-100) Mean Corpuscular Hemoglobin 31 pg (25-35) 31 pg (25-35) Mean Corpuscular Hemoglobin Concent 33 g/dL (31-37) 33 g/dL (31-37) Red Cell Distribution Width 14.0 % (11.5-14.5) 14.0 % (11.5-14.5) Platelet Count 229 x10^3/uL (140-400) 227 x10^3/uL (140-400) Neutrophils (%) (Auto) 80 % (31-73) 79 % (31-73) Lymphocytes (%) (Auto) 9 % (24-48) 10 % (24-48) Monocytes (%) (Auto) 8 % (0-9) 7 % (0-9) Eosinophils (%) (Auto) 3 % (0-3) 4 % (0-3) Basophils (%) (Auto) 0 % (0-3) 0 % (0-3) Neutrophils # (Auto) 9.0 x10^3/uL (1.8-7.7) 7.1 x10^3/uL (1.8-7.7) Lymphocytes # (Auto) 1.0 x10^3/uL (1.0-4.8) 0.9 x10^3/uL (1.0-4.8) Monocytes # (Auto) 0.8 x10^3/uL (0.0-1.1) 0.7 x10^3/uL (0.0-1.1) Eosinophils # (Auto) 0.3 x10^3/uL (0.0-0.7) 0.3 x10^3/uL (0.0-0.7) Basophils # (Auto) 0.0 x10^3/uL (0.0-0.2) 0.0 x10^3/uL (0.0-0.2) Sodium Level 137 mmol/L (136-145) 138 mmol/L (136-145) Potassium Level 3.9 mmol/L (3.5-5.1) 4.1 mmol/L (3.5-5.1) Chloride Level 100 mmol/L (98-107) 100 mmol/L (98-107) Carbon Dioxide Level 29 mmol/L (21-32) 32 mmol/L (21-32) Anion Gap 8 (6-14) 6 (6-14) Blood Urea Nitrogen 18 mg/dL (7-20) 13 mg/dL (7-20) Creatinine 1.0 mg/dL (0.6-1.0) 0.9 mg/dL (0.6-1.0) Estimated GFR (Cockcroft-Gault) 55.8 63.0 Glucose Level 127 mg/dL (70-99) 109 mg/dL (70-99) Calcium Level 9.0 mg/dL (8.5-10.1) 8.9 mg/dL (8.5-10.1) Laboratory Tests Test 12/13/18 06:00 White Blood Count 9.0 x10^3/uL (4.0-11.0) Red Blood Count 2.63 x10^6/uL (3.50-5.40) Hemoglobin 8.1 g/dL (12.0-15.5) Hematocrit 24.6 % (36.0-47.0) Mean Corpuscular Volume 94 fL (79-100) Mean Corpuscular Hemoglobin 31 pg (25-35) Mean Corpuscular Hemoglobin Concent 33 g/dL (31-37) Red Cell Distribution Width 14.0 % (11.5-14.5) Platelet Count 227 x10^3/uL (140-400) Neutrophils (%) (Auto) 79 % (31-73) Lymphocytes (%) (Auto) 10 % (24-48) Monocytes (%) (Auto) 7 % (0-9) Eosinophils (%) (Auto) 4 % (0-3) Basophils (%) (Auto) 0 % (0-3) Neutrophils # (Auto) 7.1 x10^3/uL (1.8-7.7) Lymphocytes # (Auto) 0.9 x10^3/uL (1.0-4.8) Monocytes # (Auto) 0.7 x10^3/uL (0.0-1.1) Eosinophils # (Auto) 0.3 x10^3/uL (0.0-0.7) Basophils # (Auto) 0.0 x10^3/uL (0.0-0.2) Sodium Level 138 mmol/L (136-145) Potassium Level 4.1 mmol/L (3.5-5.1) Chloride Level 100 mmol/L (98-107) Carbon Dioxide Level 32 mmol/L (21-32) Anion Gap 6 (6-14) Blood Urea Nitrogen 13 mg/dL (7-20) Creatinine 0.9 mg/dL (0.6-1.0) Estimated GFR (Cockcroft-Gault) 63.0 Glucose Level 109 mg/dL (70-99) Calcium Level 8.9 mg/dL (8.5-10.1) Microbiology 12/01/18 Blood Culture - Final, Complete NO GROWTH AFTER 5 DAYS Medications Current Medications Albuterol/ Ipratropium (Duoneb) 3 ml 1X ONCE NEB Last administered on 12/01/18at 19:06; Start 12/01/18 at 19:00; Stop 12/01/18 at 19:01; Status DC Methylprednisolone Sodium Succinate (SOLU-Medrol 125MG VIAL) 125 mg 1X ONCE IV Last administered on 12/01/18at 19:17; Start 12/01/18 at 19:00; Stop 12/01/18 at 19:01; Status DC Aspirin (Becca Aspirin) 325 mg 1X ONCE PO Last administered on 12/01/18 19:58; Start 12/01/18 at 20:00; Stop 12/01/18 at 20:01; Status DC Bumetanide (Bumex) 0.5 mg 1X ONCE IV Last administered on 12/01/18at 19:58; Start 12/01/18 at 20:00; Stop 12/01/18 at 20:01; Status DC Enoxaparin Sodium (Lovenox 80mg Syringe) 70 mg 1X ONCE SQ Last administered on 12/01/18at 20:18; Start 12/01/18 at 20:45; Stop 12/01/18 at 20:46; Status DC Ondansetron HCl (Zofran) 4 mg PRN Q8HRS PRN IV NAUSEA/VOMITING; Start 12/01/18 at 20:30; Stop 12/02/18 at 20:29; Status DC Fentanyl Citrate (Fentanyl 2ml Vial) 50 mcg PRN Q4HRS PRN IV PAIN Last administered on 12/06/18at 11:22; Start 12/01/18 at 20:30; Stop 12/06/18 at 12:27; Status DC Acetaminophen (Tylenol) 650 mg PRN Q4HRS PRN PO FEVER; Start 12/01/18 at 20:30; Stop 12/02/18 at 20:29; Status DC Albuterol/ Ipratropium (Duoneb) 3 ml RTQID NEB Last administered on 12/03/18 07:38; Start 12/02/18 at 08:00; Stop 12/03/18 at 07:59; Status DC Enoxaparin Sodium (Lovenox 80mg Syringe) 70 mg Q12HR SQ Last administered on 12/04/18 10:02; Start 12/02/18 at 09:00; Stop 12/04/18 at 14:51; Status DC Aspirin (Children'S Aspirin) 81 mg DAILYWBKFT PO Last administered on 12/05/18 08:39; Start 12/02/18 at 08:00; Stop 12/05/18 at 09:41; Status DC Fentanyl (Duragesic 12mcg/ Hr Patch) 1 patch Q3DAYS TD Last administered on 12/05/18 08:39; Start 12/02/18 at 09:00; Stop 12/06/18 at 09:55; Status DC Acetaminophen/ Hydrocodone Bitart (Lortab 10/325) 1 tab PRN Q4HRS PRN PO MODERATE TO SEVERE PAIN Last administered on 12/13/18 09:08; Start 12/01/18 at 21:30 Pantoprazole Sodium (Protonix) 40 mg DAILYAC PO Last administered on 12/13/18 09:08; Start 12/02/18 at 07:30 Polyethylene Glycol (miraLAX PACKET) 17 gm DAILY PO Last administered on 12/11/18 08:16; Start 12/02/18 at 09:00; Stop 12/11/18 at 18:41; Status DC Amitriptyline HCl (Elavil) 250 mg QHS PO Last administered on 12/12/18 19:50; Start 12/01/18 at 22:00 Gabapentin (Neurontin) 800 mg QID PO Last administered on 12/11/18at 14:28; Start 12/01/18 at 22:00; Stop 12/11/18 at 15:38; Status DC Non-Formulary Medication (Naloxone HCl (Narcan)) 4 mg PRN DAILY PRN NS overdose; Start 12/01/18 at 21:30; Stop 12/01/18 at 21:41; Status DC Naloxone HCl (Narcan) 0.4 mg PRN Q2MIN PRN IV SEE COMMENTS Last administered on 12/08/18 22:27; Start 12/01/18 at 21:45 Info (Anti-Coagulation Monitoring By Pharmacy) 1 each PRN DAILY PRN MC SEE COMMENTS Last administered on 12/08/18 15:46; Start 12/02/18 at 10:15 Atorvastatin Calcium (Lipitor) 10 mg QHS PO Last administered on 12/12/18 19:50; Start 12/02/18 at 21:00 Albuterol/ Ipratropium (Duoneb) 3 ml RTQID NEB Last administered on 12/13/18 08:00; Start 12/04/18 at 08:00 Apixaban (Eliquis) 10 mg BID PO Last administered on 12/06/18 08:35; Start 12/04/18 at 21:00; Stop 12/06/18 at 13:53; Status DC Fentanyl (Duragesic 25mcg/ Hr Patch) 1 patch Q3DAYS TD Last administered on 12/12/18 08:33; Start 12/06/18 at 10:00 Fentanyl Citrate (Fentanyl 2ml Vial) 75 mcg PRN Q2HR PRN IV PAIN SEVERE, USE 1ST Last administered on 12/11/18 23:32; Start 12/06/18 at 12:30 Heparin Sodium/ Dextrose 500 ml @ 0 mls/hr CONT PRN IV PER PROTOCOL Last administered on 12/07/18at 04:25; Start 12/06/18 at 20:30; Stop 12/09/18 at 14:40 ; Status DC Heparin Sodium (Porcine) (Heparin Sodium) 2,150 unit PRN Q6HRS PRN IV FOR UFH LEVEL LESS THAN 0.2; Start 12/06/18 at 20:30; Stop 12/07/18 at 16:34; Status DC Heparin Sodium (Porcine) (Heparin Sodium) 1,100 unit PRN Q6HRS PRN IV FOR UFH LEVEL 0.2 - 0.29; Start 12/06/18 at 20:30; Stop 12/09/18 at 14:40; Status DC Apixaban (Eliquis) 10 mg BID PO ; Start 12/08/18 at 21:00; Stop 12/07/18 at 07:28; Status DC Apixaban (Eliquis) 5 mg BID PO ; Start 12/12/18 at 09:00; Stop 12/07/18 at 07:28; Status DC Polyethylene Glycol (miraLAX PACKET) 51 gm 1X ONCE PO Last administered on 12/07/18at 10:55; Start 12/07/18 at 10:00; Stop 12/07/18 at 10:01; Status DC Polyethylene Glycol (miraLAX PACKET) 51 gm PRN DAILY PRN PO CONSTIPATION; Start 12/07/18 at 10:15 Guaifenesin (Robitussin Dm) 10 ml PRN Q6HRS PRN PO COUGH Last administered on 12/12/18at 19:50; Start 12/07/18 at 13:00 Heparin Sodium (Porcine) (Heparin Sodium) 5,550 unit PRN Q6HRS PRN IV FOR PTT<24 SEC; Start 12/07/18 at 16:34; Stop 12/09/18 at 15:06; Status DC Calcium Carbonate/ Glycine (Tums) 500 mg PRN Q4HRS PRN PO INDIGESTION; Start 12/08/18 at 01:00 Hydromorphone HCl (Dilaudid) 1 mg PRN Q2HR PRN IV SEVERE PAIN 7-10, 2ND CHOICE Last administered on 12/08/18at 20:20; Start 12/08/18 at 12:15; Stop 12/09/18 at 08:27; Status DC Prednisone (Prednisone) 50 mg 1X ONCE PO Last administered on 12/08/18at 21:56; Start 12/08/18 at 22:00; Stop 12/08/18 at 22:01; Status DC Prednisone (Prednisone) 50 mg 1X ONCE PO Last administered on 12/09/18at 05:44; Start 12/09/18 at 05:00; Stop 12/09/18 at 05:01; Status DC Prednisone (Prednisone) 50 mg 1X ONCE PO Last administered on 12/09/18at 09:20; Start 12/09/18 at 09:00; Stop 12/09/18 at 09:01; Status DC Diphenhydramine HCl (Benadryl) 50 mg 1X ONCE IVP Last administered on 12/09/18at 12:08; Start 12/09/18 at 09:00; Stop 12/09/18 at 09:01; Status DC Ondansetron HCl (Zofran) 4 mg PRN Q6HRS PRN IV NAUSEA/VOMITING 1ST CHOICE Last administered on 12/08/18at 22:39; Start 12/08/18 at 22:30 Lidocaine/Sodium Bicarbonate (Buffered Lidocaine 1%) 3 ml STK-MED ONCE .ROUTE ; Start 12/09/18 at 09:21; Stop 12/09/18 at 09:22; Status DC Iohexol (Omnipaque 240 Mg/ml) 50 ml STK-MED ONCE .ROUTE ; Start 12/09/18 at 09:21; Stop 12/09/18 at 09:22; Status DC Lidocaine HCl (Lidocaine 1% 20ml Vial) 20 ml STK-MED ONCE .ROUTE ; Start 12/09/18 at 09:21; Stop 12/09/18 at 09:22; Status DC Lidocaine/ Epinephrine (LIDOCAINE 1%-EPI 1:100,000 Multi-Dose) 20 ml STK-MED ONCE .ROUTE ; Start 12/09/18 at 10:14; Stop 12/09/18 at 10:14; Status DC Midazolam HCl (Versed) 5 mg STK-MED ONCE .ROUTE ; Start 12/09/18 at 11:47; Stop 12/09/18 at 11:48; Status DC Fentanyl Citrate (Fentanyl 5ml Vial) 250 mcg STK-MED ONCE .ROUTE ; Start 12/09/18 at 11:48; Stop 12/09/18 at 11:48; Status DC Diphenhydramine HCl (Benadryl) 50 mg STK-MED ONCE .ROUTE ; Start 12/09/18 at 12:01; Stop 12/09/18 at 12:02; Status DC Cefazolin Sodium 100 ml @ As Directed STK-MED ONCE IV ; Start 12/09/18 at 13:03; Stop 12/09/18 at 13:04; Status DC Lidocaine/Sodium Bicarbonate (Buffered Lidocaine 1%) 6 ml 1X ONCE IJ Last administered on 12/09/18at 13:36; Start 12/09/18 at 13:15; Stop 12/09/18 at 13:31; Status DC Midazolam HCl (Versed) 1 mg 1X ONCE IV Last administered on 12/09/18at 13:36; Start 12/09/18 at 13:15; Stop 12/09/18 at 13:31; Status DC Fentanyl Citrate (Fentanyl 5ml Vial) 25 mcg 1X ONCE IV Last administered on 12/09/18at 13:36; Start 12/09/18 at 13:15; Stop 12/09/18 at 13:31; Status DC Lidocaine/ Epinephrine (LIDOCAINE 1%-EPI 1:100,000 Multi-Dose) 15 ml 1X ONCE INJ Last administered on 12/09/18at 13:36; Start 12/09/18 at 13:15; Stop 12/09/18 at 13:31; Status DC Cefazolin Sodium 50 ml @ 100 mls/hr 1X ONCE IV Last administered on 12/09/18at 13:36; Start 12/09/18 at 13:15; Stop 12/09/18 at 13:44; Status DC Lidocaine HCl 8 ml 1X ONCE IJ ; Start 12/09/18 at 13:15; Stop 12/09/18 at 13:31; Status DC Iohexol (Omnipaque 240 Mg/ml) 2 ml 1X ONCE IV Last administered on 12/09/18at 13:45; Start 12/09/18 at 13:15; Stop 12/09/18 at 13:31; Status DC Cefazolin Sodium 50 ml @ 100 mls/hr 1X ONCE IV Last administered on 12/09/18at 13:45; Start 12/09/18 at 13:15; Stop 12/09/18 at 13:44; Status DC Lidocaine HCl (Lidocaine 1% 20ml Vial) 8 ml 1X ONCE INJ Last administered on 12/09/18at 13:45; Start 12/09/18 at 13:45; Stop 12/09/18 at 13:46; Status DC Apixaban (Eliquis) 10 mg BID PO Last administered on 12/10/18at 08:37; Start 12/09/18 at 21:00; Stop 12/10/18 at 15:05; Status DC Alcohol (Alcohol, Dehydrated 98%) 40 ml 1X ONCE IJ ; Start 12/09/18 at 15:15; Stop 12/09/18 at 15:16; Status DC Ascorbic Acid (Vitamin C) 500 mg DAILY PO Last administered on 12/13/18 09:08; Start 12/10/18 at 09:00 Multivitamins (Thera M Plus) 1 tab DAILY PO Last administered on 12/13/18 09:08; Start 12/10/18 at 09:00 Apixaban (Eliquis) 5 mg BID PO Last administered on 12/13/18 09:08; Start 12/10/18 at 21:00 Acetaminophen (Tylenol) 650 mg PRN Q6HRS PRN PO MILD PAIN 1-3 Last administered on 12/10/18at 18:44; Start 12/10/18 at 18:30 Nystatin (Nystatin Oral Susp) 5 ml [id number] Last administered on 12/13/18 09:08; Start 12/11/18 at 17:00 Gabapentin (Neurontin) 800 mg QID PO Last administered on 12/13/18 09:08; Start 12/11/18 at 17:00 Polyethylene Glycol (miraLAX PACKET) 17 gm PRN DAILY PRN PO CONSTIPATION; Start 12/11/18 at 18:45 Active Scripts Active Coumadin (Warfarin Sodium) 10 Mg Tablet 1 Each MC PRN DAILY PRN 30 Days Narcan (Naloxone HCl) 4 Mg [place] 4 Mg NS PRN DAILY PRN 30 Days Polyethylene Glycol 3350 17 Gm Powd.pack 17 Gm PO DAILY 30 Days FENTANYL 12mcg/hr (Fentanyl) 1 Each Patch.td72 1 Patch TD Q3DAYS 30 Days Pantoprazole Sodium (Pantoprazole Sodium) 40 Mg Tablet.dr 40 Mg PO DAILYAC 30 Days Reported Aspirin 81 Mg Tab.chew 1 Tab PO DAILYWBKFT Amitriptyline Hcl 100 Mg Tablet 2.5 Tab PO QHS Hydrocodone-Apap 10-325 (Hydrocodone Bit/Acetaminophen) 1 Tab Tablet 1 Tab PO PRN Q4HRS PRN Gabapentin 800 Mg Tablet 800 Mg PO QID Vitals/I & O Vital Sign - Last 24 Hours 12/12/18 12/12/18 12/12/18 12/12/18 11:00 11:56 12:46 12:58 Temp 98.0 98.0 Pulse 88 Resp 20 20 B/P (MAP) 116/56 (76) Pulse Ox 93 93 O2 Delivery Nasal Cannula Nasal Cannula Nasal Cannula Nasal Cannula O2 Flow Rate 4.0 4.0 4.0 4.0 9/16/19 9/16/19 9/16/19 9/16/19 13:07 14:43 17:25 19:10 Temp 98.0 98.1 98.0 98.1 Pulse 80 97 Resp 18 20 B/P (MAP) 103/55 (71) 166/74 (104) Pulse Ox 94 98 95 97 O2 Delivery Nasal Cannula Room Air Nasal Cannula Nasal Cannula O2 Flow Rate 4.0 4.0 4.0 12/12/18 12/12/18 12/12/18 12/13/18 20:00 20:03 23:05 03:25 Temp 98.7 98.2 98.7 98.2 Pulse 92 84 Resp 20 20 B/P (MAP) 116/56 (76) 105/54 (71) Pulse Ox 98 97 94 O2 Delivery Nasal Cannula Nasal Cannula Nasal Cannula Nasal Cannula O2 Flow Rate 4.0 4.0 4.0 4.0 12/13/18 12/13/18 12/13/18 07:00 08:01 09:08 Temp 98.0 98.0 Pulse 81 Resp 20 B/P (MAP) 117/59 (78) Pulse Ox 94 88 97 O2 Delivery Nasal Cannula Nasal Cannula Nasal Cannula O2 Flow Rate 4.0 4.0 4.0 Intake and Output 12/12/18 12/12/18 12/13/18 15:00 23:00 07:00 Intake Total 225 ml 400 ml Output Total 100 ml Balance 225 ml -100 ml 400 ml Nutrition Consultation Dietary Evaluation: Recommendations by RD: Increase Calorie Intake, Protein supplementation Comments: Continue w/cardiac diet, will add GI soft REC Ensure w/dinner and prn/between meals REC Vit C 500 mg BID, MVI q day - wound healing Expected Outcomes/Goals: PO intake to meet >75% est needs - met at times, goal ongoing Malnutrition Findings: Food and Nutrition Intake (Sev: <50% est energy req 5days Weight Status: Appropriate PEYTON GIRON MD Dec 13, 2018 09:24
[2018-12-13 11:00] VITALS: BP 104/55
[2018-12-13] MEDS: ANTI-COAG MONITOR BY PHARMACY. MC PRN (11:26)
[2018-12-13] MEDS ORDERED: APIX2.5T PO (11:36)
[2018-12-13] MEDS ORDERED: ATOR10TA60 PO (11:37)
[2018-12-13] MEDS: fentaNYL PF VIAL 100 MCG/2 ML VIAL IV PRN (12:04)
[2018-12-13] MEDS ORDERED: HEPARIN PF 500 UNIT/5 ML DISP.SYRIN. IV ONE (12:15)
--- NOTE | 2018-12-13 12:15 | PDOC ---
PULMONARY PROGRESS NOTES Subjective no soa Vitals Vital Signs Date Time Temp Pulse Resp B/P (MAP) Pulse Ox O2 Delivery O2 Flow Rate FiO2 12/13/18 12:04 93 Nasal Cannula 4.0 12/13/18 11:00 98.0 89 20 104/55 (71) 98.0 ROS: No Nausea, No Increase Cough General: Alert, Oriented X4, No acute distress HEENT: Other (nc at perrl) Lungs: Other (Diminished throughtout) Cardiovascular: S1, S2, Other (diminshed in bases ) Abdomen: Soft, Non-tender Neuro Exam: Alert Skin: Warm Labs Laboratory Tests Test 12/12/18 03:55 12/13/18 06:00 White Blood Count 11.2 x10^3/uL (4.0-11.0) 9.0 x10^3/uL (4.0-11.0) Red Blood Count 2.72 x10^6/uL (3.50-5.40) 2.63 x10^6/uL (3.50-5.40) Hemoglobin 8.3 g/dL (12.0-15.5) 8.1 g/dL (12.0-15.5) Hematocrit 25.2 % (36.0-47.0) 24.6 % (36.0-47.0) Mean Corpuscular Volume 93 fL (79-100) 94 fL (79-100) Mean Corpuscular Hemoglobin 31 pg (25-35) 31 pg (25-35) Mean Corpuscular Hemoglobin Concent 33 g/dL (31-37) 33 g/dL (31-37) Red Cell Distribution Width 14.0 % (11.5-14.5) 14.0 % (11.5-14.5) Platelet Count 229 x10^3/uL (140-400) 227 x10^3/uL (140-400) Neutrophils (%) (Auto) 80 % (31-73) 79 % (31-73) Lymphocytes (%) (Auto) 9 % (24-48) 10 % (24-48) Monocytes (%) (Auto) 8 % (0-9) 7 % (0-9) Eosinophils (%) (Auto) 3 % (0-3) 4 % (0-3) Basophils (%) (Auto) 0 % (0-3) 0 % (0-3) Neutrophils # (Auto) 9.0 x10^3/uL (1.8-7.7) 7.1 x10^3/uL (1.8-7.7) Lymphocytes # (Auto) 1.0 x10^3/uL (1.0-4.8) 0.9 x10^3/uL (1.0-4.8) Monocytes # (Auto) 0.8 x10^3/uL (0.0-1.1) 0.7 x10^3/uL (0.0-1.1) Eosinophils # (Auto) 0.3 x10^3/uL (0.0-0.7) 0.3 x10^3/uL (0.0-0.7) Basophils # (Auto) 0.0 x10^3/uL (0.0-0.2) 0.0 x10^3/uL (0.0-0.2) Sodium Level 137 mmol/L (136-145) 138 mmol/L (136-145) Potassium Level 3.9 mmol/L (3.5-5.1) 4.1 mmol/L (3.5-5.1) Chloride Level 100 mmol/L (98-107) 100 mmol/L (98-107) Carbon Dioxide Level 29 mmol/L (21-32) 32 mmol/L (21-32) Anion Gap 8 (6-14) 6 (6-14) Blood Urea Nitrogen 18 mg/dL (7-20) 13 mg/dL (7-20) Creatinine 1.0 mg/dL (0.6-1.0) 0.9 mg/dL (0.6-1.0) Estimated GFR (Cockcroft-Gault) 55.8 63.0 Glucose Level 127 mg/dL (70-99) 109 mg/dL (70-99) Calcium Level 9.0 mg/dL (8.5-10.1) 8.9 mg/dL (8.5-10.1) Laboratory Tests Test 12/13/18 06:00 White Blood Count 9.0 x10^3/uL (4.0-11.0) Red Blood Count 2.63 x10^6/uL (3.50-5.40) Hemoglobin 8.1 g/dL (12.0-15.5) Hematocrit 24.6 % (36.0-47.0) Mean Corpuscular Volume 94 fL (79-100) Mean Corpuscular Hemoglobin 31 pg (25-35) Mean Corpuscular Hemoglobin Concent 33 g/dL (31-37) Red Cell Distribution Width 14.0 % (11.5-14.5) Platelet Count 227 x10^3/uL (140-400) Neutrophils (%) (Auto) 79 % (31-73) Lymphocytes (%) (Auto) 10 % (24-48) Monocytes (%) (Auto) 7 % (0-9) Eosinophils (%) (Auto) 4 % (0-3) Basophils (%) (Auto) 0 % (0-3) Neutrophils # (Auto) 7.1 x10^3/uL (1.8-7.7) Lymphocytes # (Auto) 0.9 x10^3/uL (1.0-4.8) Monocytes # (Auto) 0.7 x10^3/uL (0.0-1.1) Eosinophils # (Auto) 0.3 x10^3/uL (0.0-0.7) Basophils # (Auto) 0.0 x10^3/uL (0.0-0.2) Sodium Level 138 mmol/L (136-145) Potassium Level 4.1 mmol/L (3.5-5.1) Chloride Level 100 mmol/L (98-107) Carbon Dioxide Level 32 mmol/L (21-32) Anion Gap 6 (6-14) Blood Urea Nitrogen 13 mg/dL (7-20) Creatinine 0.9 mg/dL (0.6-1.0) Estimated GFR (Cockcroft-Gault) 63.0 Glucose Level 109 mg/dL (70-99) Calcium Level 8.9 mg/dL (8.5-10.1) Medications Active Scripts Medications Dose Route/Sig Max Daily Dose Days Date Category Narcan (Naloxone HCl) 4 Mg [place] 4 Mg NS PRN DAILY PRN 30 11/28/18 Rx Polyethylene Glycol 3350 17 Gm Powd.pack 17 Gm PO DAILY 30 11/28/18 Rx FENTANYL 12mcg/hr (Fentanyl) 1 Each Patch.td72 1 Patch TD Q3DAYS 30 11/28/18 Rx Pantoprazole Sodium (Pantoprazole Sodium) 40 Mg Tablet.dr 40 Mg PO DAILYAC 30 11/28/18 Rx Aspirin 81 Mg Tab.chew 1 Tab PO DAILYWBKFT 11/22/18 Reported Amitriptyline Hcl 100 Mg Tablet 2.5 Tab PO QHS 05/11/18 Reported Hydrocodone-Apap 10-325 (Hydrocodone Bit/Acetaminophen) 1 Tab Tablet 1 Tab PO PRN Q4HRS PRN 05/11/18 Reported Gabapentin 800 Mg Tablet 800 Mg PO QID 05/11/18 Reported Impression . 1. Acute pulmonary embolism with multiple bilateral segmental and subsegmental mismatch defects along with acute extensive deep vein thrombosis likely 2/2 underlying pancreatic cancer, presenting as hypercoagulable state. 2. Acute on chronic hypoxic respiratory failure secondary to acute pulmonary embolism and underlying chronic obstructive pulmonary disease. 3. Extensive deep venous thrombosis burden involving both lower extremities with complete occlusion of the bilateral superficial femoral veins and popliteal veins. Partially occlusive thrombus within the bilateral posterior tibial veins. 4. Recently diagnosed pancreatic cancer, not been on treatment yet. 5. Hemodynamically stable 6. Suspected underlying chronic obstructive pulmonary disease, could be severe. 7. chronic pain syndrome Plan . 1. Continue with present oxygen. wean to keep sats @ 94%. 2 increase ambulation 3. Oxygen/ Nebs 4. Cont. eliquis 5. Initiate pancreatic cancer treatment as OP 6. The patient will require lifelong anticoagulation due to underlying malignancy. 7. OOB as tolerated 8. Fentanyl patch and pain management per IM 9. Discussed with RICCI COFFMAN MD Dec 13, 2018 12:15
--- NOTE | 2018-12-13 13:00 | NUR ---
Pt picked up by medical transportation at 1300. Family with the patient and has belongings. Report called to RN at 1200. Discharge packet given to transportation.
--- NOTE | 2018-12-14 09:13 | DS ---
DATE OF DISCHARGE: 12/13/2018 ADMISSION DIAGNOSES: Probable pulmonary emboli, respiratory failure, recent diagnosis of pancreatic cancer, and hemodynamic instability. DISCHARGE DIAGNOSES: Resolving pulmonary emboli, pancreatic cancer, chronic pain, status post celiac block, peripheral neuropathy, diabetes, bladder prolapse, GERD, and fibromyalgia. CONSULTS: Palliative care, Hematology/Oncology, Cardiology, and Pulmonary. HOSPITAL COURSE: The patient is a pleasant elderly female, who presented with pulmonary emboli. She was admitted. She had a recent diagnosis of pancreatic cancer as well. We gave her anticoagulation. She then had persistent pain. We had to consult pain management and Interventional Radiology. She went for a celiac block. Over the past few days, she got better, but was quite debilitated. We discharged her to intermediate yesterday. DISPOSITION: Skilled. ACTIVITY: As tolerated. DIET: Low salt. MEDICATIONS: Please see the MRAD. TOTAL TIME: 32 minutes. PHUC MILLER DO DR: ESAU/singh JOB#: [id number] / [id number]
== END 2018-12-13 13:00 | DRG 981 ==
LOC: ER 18:43 → 2 NORTH 20:10
PROVIDERS: ADMIT Internal Medicine; ATTEND Internal Medicine
PROC: 0JH60WZ Insertion of Totally Implantable Vascular Access Device into Chest Subcutaneous Tissue and Fascia, Open Approach (ICD-10-PCS; principal; 2018-12-09)
PROC: 02H633Z Insertion of Infusion Device into Right Atrium, Percutaneous Approach (ICD-10-PCS; 2018-12-09)
PROC: B244ZZZ Ultrasonography of Right Heart (ICD-10-PCS; 2018-12-09)
PROC: B2141ZZ Fluoroscopy of Right Heart using Low Osmolar Contrast (ICD-10-PCS; 2018-12-09)
DX: I26.99 Other pulmonary embolism without acute cor pulmonale (principal); J96.21 Acute and chronic respiratory failure with hypoxia; C25.9 Malignant neoplasm of pancreas, unspecified; C78.7 Secondary malignant neoplasm of liver and intrahepatic bile duct; D68.59 Other primary thrombophilia; I82.413 Acute embolism and thrombosis of femoral vein, bilateral; I82.433 Acute embolism and thrombosis of popliteal vein, bilateral; I82.443 Acute embolism and thrombosis of tibial vein, bilateral; M79.7 Fibromyalgia; E11.42 Type 2 diabetes mellitus with diabetic polyneuropathy; Z51.5 Encounter for palliative care; W06.XXXA Fall from bed, initial encounter; Y92.239 Unspecified place in hospital as the place of occurrence of the external cause; I50.9 Heart failure, unspecified; I11.0 Hypertensive heart disease with heart failure; D64.9 Anemia, unspecified; M19.90 Unspecified osteoarthritis, unspecified site; K64.9 Unspecified hemorrhoids; E78.5 Hyperlipidemia, unspecified; G89.4 Chronic pain syndrome; I07.1 Rheumatic tricuspid insufficiency; I27.20 Pulmonary hypertension, unspecified; I35.1 Nonrheumatic aortic (valve) insufficiency; K59.00 Constipation, unspecified; K21.9 Gastro-esophageal reflux disease without esophagitis; I37.1 Nonrheumatic pulmonary valve insufficiency; J44.9 Chronic obstructive pulmonary disease, unspecified; Z87.11 Personal history of peptic ulcer disease; Z87.891 Personal history of nicotine dependence; Z90.710 Acquired absence of both cervix and uterus; Z80.3 Family history of malignant neoplasm of breast; Z82.49 Family history of ischemic heart disease and other diseases of the circulatory system; Y93.89 Activity, other specified; Y99.8 Other external cause status; Z88.8 Allergy status to other drugs, medicaments and biological substances; Z91.041 Radiographic dye allergy status
CPT/HCPCS: 36415; 36561; 36600; 64530; 71045; 76937; 77001; 78582; 80048; 80053; 80061; 82140; 82550; 82805; 82962; 83605; 83880; 84484; 85007; 85025; 85379; 85520; 85730; 87040; 93005; 93306; 93970; 94640; 94760; 96372; 96374; 96375; 99152; 99153; A9540; A9558; C1751; C1892; J0690; J1170; J1200; J1650; J2250; J2310; J2405; J2930; J3010; J3490; J7512; J7620; Q9966; 97110; 97116; 97530; 97535; 99291-25; G0378